=== PATIENT | female | born 1940 | race Caucasian/White ===

== ENCOUNTER 2019-05-03 07:52 | Inpatient (IN) | payer MEDICARE ==
--- NOTE | 2019-05-02 16:30 | Pre-op HX & Phy Repo 2 SIG ---
DATE OF ADMISSION: 05/03/2019 Scheduled for admission 05/03/2019. HISTORY OF PRESENT ILLNESS: The patient is a 79-year-old female in overall stable health with a malfunctioning Kock pouch continent ileostomy with increasing incontinence and increasing difficulty with intubation. The patient has a past history of ulcerative colitis in 1979. At the [facility], she underwent proctocolectomy with creation of a Kock pouch continent ileostomy. Over the years, she usually intubates three times a day to evacuate stool. In recent months, she has been aware of incontinence of stool or gas, sometimes gross incontinence. She has also had a few years of increasing episodes of difficulty with intubating associated with the incontinence over few years. In October 2018, she was completely unable to intubate. She underwent a pouch endoscopy with placement of the catheter, but there was no description in the report of any etiology of the inability to catheterize. She underwent a CT scan, which was unremarkable except for a foreign body in the pouch. The patient is scheduled to undergo pouch endoscopy and preparation for surgery including laparotomy and revision of her malfunctioning Kock pouch, likely due to a slipped valve. She does not want to have her pouch removed and have a conventional ileostomy as she has never had a conventional ileostomy. MEDICATIONS: Labetalol and valsartan for hypertension, Singulair for asthma, Pravachol, Hytrin, Celebrex for arthritis, Detrol, and aspirin 81 mg. ALLERGIES: She has no allergies to medications. She is allergic to some kind of adhesive tape. OPERATIONS: In 1979, proctocolectomy and Kock pouch and in 2016 oophorectomy for cyst of the ovary, which was benign. REVIEW OF SYSTEMS: The patient states she has a long history of iron deficiency anemia. PHYSICAL EXAMINATION: GENERAL: The patient is 5 feet 5 inches, 140 pounds. [place] and will be examined upon arrival and dictated separately. IMPRESSION: 1. Malfunctioning Kock pouch continent ileostomy. 2. History of ulcerative colitis. 3. Hypertension. 4. Asthma. 5. Arthritis. 6. STATUS POST MULTIPLE ABDOMINAL OPERATIONS: 6.1 Proctocolectomy and Kock pouch in 1979. 6.2 Oophorectomy for benign cyst in 2015. PLAN: I have had a full discussion with the patient regarding the nature of her condition, the nature of the evaluation including pouch endoscopy, which does not require any anesthesia or sedation. She further understands. She will be prepared for surgery including laparotomy and revision of her Kock pouch and possible decompressive gastrostomy. She will have a dual lumen PICC line placed for preoperative workup, bowel prep with continuous drainage of her Kock pouch and intravenous hydration during bowel prep, preoperative intravenous antibiotics and subcutaneous heparin. I will have another detailed discussion in person with the patient when she arrives [place] of state. Zachariah Farris M.D. DR: RINA JOB#: [id number] CC:
[~2019-05-03] VITALS: Ht 162.6 cm; Wt 57.2 kg
[2019-05-03 09:00] VITALS: BP 144/71
[2019-05-03] MEDS ORDERED: Lidocaine 1% Plain 30 ml INJ ONE (09:45)
[2019-05-03] MEDS ORDERED: Heparin1,000 units/500ml Premix(Conc:2 units/ml) IV ONE (09:45)
[2019-05-03] MEDS ORDERED: AVALIDE 300-121 EACH ORAL (10:28)
[2019-05-03] MEDS ORDERED: DETROL2 MG ORAL (10:28)
[2019-05-03] MEDS ORDERED: CELEBREX200 MG ORAL (10:28)
[2019-05-03] MEDS ORDERED: CLARITIN-D 241 EACH PO (10:28)
[2019-05-03] MEDS ORDERED: SPIRIVA18 MCG INH (10:28)
[2019-05-03] MEDS ORDERED: FLUTICASONE PRO16 G1 NASAL (10:28)
[2019-05-03] MEDS ORDERED: VENTOLIN HFA18 GM INH (10:28)
[2019-05-03] MEDS ORDERED: PANTOPRAZOLE SO40 MG ORAL (10:28)
[2019-05-03] MEDS ORDERED: PRAVASTATIN SOD20 M1 ORAL (10:28)
[2019-05-03] MEDS ORDERED: MONTELUKAST SOD10 MG ORAL (10:28)
[2019-05-03] MEDS ORDERED: IRON18 M1 PO (10:28)
[2019-05-03] MEDS ORDERED: AMLODIPINE BESYL5 MG ORAL (10:28)
[2019-05-03] MEDS ORDERED: SERTRALINE HCL25 MG ORAL (10:28)
[2019-05-03 10:46] LABS: BASOPHILS % (AUTO) 0.8 % (0.0-2.0); EOSINOPHILS % (AUTO) 1.9 % (0.0-3.0); HEMATOCRIT 38.9 % (37.0-47.0); HEMOGLOBIN 12.8 G/DL (12.0-16.0); LYMPHOCYTES % (AUTO) 7.3 % (20.0-45.0); MEAN CORPUSCULAR VOLUME 95 FL (80-99); MONOCYTES % (AUTO) 5.7 % (1.0-10.0); NEUTROPHILS % (AUTO) 84.2 % (45.0-75.0); PLATELET COUNT 205 K/UL (150-450); RED CELL DISTRIBUTION WIDTH 11.6 % (11.6-14.8); WHITE BLOOD COUNT 6.1 K/UL (4.8-10.8)
[2019-05-03 10:56] LABS: INR 1.1 (0.9-1.1)
--- NOTE | 2019-05-03 10:58 | Diagnostic Imaging Report ---
Indication: Cough Technique: One view of the chest Comparison: none Findings: There is thoracolumbar scoliotic deformity. There is suggestion of generalized hyperinflation and more focal hyperinflation of the right lateral lung base. The lungs and pleural spaces are clear. The heart size is normal Impression: No acute process COPD changes Scoliosis
[2019-05-03 11:04] LABS: ANION GAP 11 mmol/L (5-15); BLOOD UREA NITROGEN 23 mg/dL (7-18); CALCIUM 9.3 MG/DL (8.5-10.1); CARBON DIOXIDE 27 MMOL/L (21-32); CHLORIDE 103 MMOL/L (98-107); CREATININE 1.2 MG/DL (0.55-1.30); POTASSIUM 3.6 MMOL/L (3.5-5.1); SODIUM 141 MMOL/L (136-145)
[2019-05-03 11:09] LABS: % IRON SATURATION 32 % (15-50); IRON 96 ug/dL (50-175); TOTAL IRON BINDING CAPACITY 299 ug/dL (250-450)
[2019-05-03] MEDS ORDERED: FLUCONAZOLE100 MG ORAL (11:10)
[2019-05-03 11:21] LABS: ALANINE AMINOTRANSFERASE 31 U/L (12-78); ALBUMIN 4.1 G/DL (3.4-5.0); ALBUMIN/GLOBULIN RATIO 1.4 (1.0-2.7); ALKALINE PHOSPHATASE 57 U/L (46-116); ASPARTATE AMINO TRANSFERASE 27 U/L (15-37); FERRITIN 192 NG/ML (8-388)
[2019-05-03] MEDS: Neomycin Sulfate 500mg Tab ORAL SCH ×3 (11:44→20:16)
--- NOTE | 2019-05-03 11:51 | Pre-Procedure Note/Attestation ---
Pre-Procedure Note/Attestation Complete Prior to Procedure Planned Procedure: not applicable Procedure Narrative: Kock pouch endoscopy Indications for Procedure Pre-Operative Diagnosis: Malfunctioning Kock Pouch Attestation I attest that I discussed the nature of the procedure; its benefits; risks and complications; and alternatives (and the risks and benefits of such alternatives ), prior to the procedure, with the patient (or the patient's legal textiles sales representative). I attest that, if there was a reasonable possibility of needing a blood transfusion, the patient (or the patient's legal textiles sales representative) was given the [facility] standardized written summary, pursuant to the Garth Guido Blood Safety Act ([place] Health and Safety Code # 1645, as amended). I attest that I re-evaluated the patient just prior to the surgery and that there has been no change in the patient's H&P, except as documented below: none Zachariah Farris MD May 03, 2019 11:51
[2019-05-03 12:00] VITALS: BP 132/78
[2019-05-03 12:13] LABS: APPEARANCE,URINE SLIGHTLY CLOUDY; BILIRUBIN, URINE NEGATIVE (NEGATIVE); COLOR,URINE PALE YELLOW; GLUCOSE, URINE (UA) NEGATIVE (NEGATIVE); KETONES,URINE NEGATIVE (NEGATIVE); LEUKOCYTE ESTERASE ,URINE 3+ (NEGATIVE); NITRITE,URINE NEGATIVE (NEGATIVE); PH,URINE 5 (4.5-8.0); PROTEIN,URINE NEGATIVE (NEGATIVE); UROBILINOGEN,URINE NORMAL MG/DL (0.0-1.0)
--- NOTE | 2019-05-03 13:30 | Brief Operative Note ---
Immediate Post Operative Note Operative Note Pre-op Diagnosis: Malfunctioning Kock Pouch Procedure: Kock pouch endoscopy Post-op Diagnosis: partially slipped valve of Kock pouch Post-op Diagnosis: same as pre-op Findings: consistent w/pre-op dx studies Surgeon: mary Anesthesia: other - none Specimen: none Complications: none Fluids: none Estimated Blood Loss: none Drains: other - 26 Fr Blunt to Kock pouch Implant(s) used?: No Zachariah Farris MD May 03, 2019 13:30
[2019-05-03 14:00] VITALS: BP 148/93
--- NOTE | 2019-05-03 14:40 | Pre-Procedure Note/Attestation ---
Pre-Procedure Note/Attestation Complete Prior to Procedure Planned Procedure: not applicable Procedure Narrative: PICC Indications for Procedure Pre-Operative Diagnosis: needs group home central IV access Attestation I attest that I discussed the nature of the procedure; its benefits; risks and complications; and alternatives (and the risks and benefits of such alternatives ), prior to the procedure, with the patient (or the patient's legal outbound call center representative). I attest that, if there was a reasonable possibility of needing a blood transfusion, the patient (or the patient's legal outbound call center representative) was given the [facility] standardized written summary, pursuant to the Garth Guido Blood Safety Act ([place] Health and Safety Code # 1645, as amended). I attest that I re-evaluated the patient just prior to the surgery and that there has been no change in the patient's H&P, except as documented below: Bret Barajas MD May 03, 2019 14:40
--- NOTE | 2019-05-03 14:45 | Brief Operative Note ---
Immediate Post Operative Note Operative Note Pre-op Diagnosis: needs director long term care central IV access Procedure: PICC left arm Post-op Diagnosis: same as pre-op Surgeon: Claire Lozada Anesthesia: local Specimen: none Complications: none Fluids: none Implant(s) used?: No Bret Lozada MD May 03, 2019 14:45
--- NOTE | 2019-05-03 14:51 | Diagnostic Imaging Report ---
Indications: Needs long-term IV access Technique: Ultrasound confirms patent compressible left basilic vein. Total sterile technique, including sterile probe cover and sterile gel, hat, mask, sterile gown, large sterile drape, and preparation with 2% chlorhexidine utilized. Local anesthesia with 1% lidocaine. Under real-time ultrasound guidance, puncture basilic vein using 21-gauge needle, documented and archived, passage 0.018 guidewire under direct fluoroscopy, which was used to determine appropriate catheter length, exchange for 4 Kazakh peel-away sheath. 4 Kazakh Bard dual-lumen power PICC cut to 41 cm. It was inserted through the peel-away sheath. Peel-away sheath and guidewire removed. Catheter fixed to the skin. Both catheter ports aspirated and flushed. Patient tolerated procedure well, without immediate complication. Digital radiograph documents satisfactory catheter tip position, at the cavoatrial junction. Total fluoroscopy time 24.4 seconds. Total dose area product [id number] mGym2 Total number of images: 1 Impression: Successful placement of left arm PICC under sonographic and fluoroscopic guidance, as described above.
[2019-05-03] MEDS ORDERED: Albuterol 90mcg Inhaler 8gm INH PRN (16:00)
--- NOTE | 2019-05-03 16:14 | General Progress Note ---
Progress Note Progress Note H&P dictated. Kock pouch endoscopy reveals partially slipped valve. Dr. Mau Gonzales to see patient re abnormal EKG and management of HTN/pre- admission meds in post-op period Hgb 12.8 BUN up 23 Cr 1.2 Iron 96 Ferritin 192 Albumin 4.1 Full discussion with patient and son regarding her condition, nature of surgery , options and risks. Plan: dual lumen PIC Cardiology evaluation IV hydration, bowel prep, continuous drainage of Kock Pouch surgery in AM Zachariah Farris MD May 03, 2019 16:14
--- NOTE | 2019-05-03 16:48 | Cardiology Progress Note ---
Assessment/Plan Status Narrative 1. Ulcerative colitis 2. Malfunctioning Kock Pouch 3. HTN- controlled 4. Asthma 5. Abnormal EKG- normal LV function 6. DJD 7. Urinary Frequency Assessment/Plan Resume PO meds. Echo reviewed. May proceed with surgery. Will continue resp Tx post OP May need Clonidine SL post OP if unable to take PO meds. Hold Celebrex Discussed with Patient, her Son and with Dr. Farris. Subjective Cardiovascular: Reports: no symptoms; Denies: chest pain, edema, irregular heart rate, lightheadedness Respiratory: Reports: SOB with excertion, wheezing Gastrointestinal/Abdominal: Reports: abdomen distended Genitourinary: Reports: no symptoms Subjective Patient admitted for revision of Kock poch. Objective Last 24 Hour Vital Signs Date Time Temp Pulse Resp B/P (MAP) Pulse Ox O2 Delivery O2 Flow Rate FiO2 05/03/19 14:00 98.4 73 20 148/93 (111) 96 05/03/19 12:00 98.9 84 18 132/78 (96) 94 05/03/19 09:37 Room Air 05/03/19 09:00 98.8 85 20 144/71 (95) 96 Neck: non-tender, supple Rhythm: NSR Cardiovascular: normal rate, regular rhythm, no gallop/murmur Respiratory/Chest: chest wall non-tender, lungs clear, normal breath sounds, no respiratory distress Abdomen: other - Exp wheezes with forced expiration Extremities: non-tender, normal inspection, no calf tenderness, no swelling Laboratory Tests Test 05/03/19 10:35 05/03/19 11:30 White Blood Count 6.1 K/UL (4.8-10.8) Red Blood Count 4.10 M/UL (4.20-5.40) L Hemoglobin 12.8 G/DL (12.0-16.0) Hematocrit 38.9 % (37.0-47.0) Mean Corpuscular Volume 95 FL (80-99) Mean Corpuscular Hemoglobin 31.2 PG (27.0-31.0) H Mean Corpuscular Hemoglobin Concent 32.8 G/DL (32.0-36.0) Red Cell Distribution Width 11.6 % (11.6-14.8) Platelet Count 205 K/UL (150-450) Mean Platelet Volume 5.6 FL (6.5-10.1) L Neutrophils (%) (Auto) 84.2 % (45.0-75.0) H Lymphocytes (%) (Auto) 7.3 % (20.0-45.0) L Monocytes (%) (Auto) 5.7 % (1.0-10.0) Eosinophils (%) (Auto) 1.9 % (0.0-3.0) Basophils (%) (Auto) 0.8 % (0.0-2.0) Prothrombin Time 11.2 SEC (9.30-11.50) Prothromb Time International Ratio 1.1 (0.9-1.1) Activated Partial Thromboplast Time 25 SEC (23-33) Sodium Level 141 MMOL/L (136-145) Potassium Level 3.6 MMOL/L (3.5-5.1) Chloride Level 103 MMOL/L (98-107) Carbon Dioxide Level 27 MMOL/L (21-32) Anion Gap 11 mmol/L (5-15) Blood Urea Nitrogen 23 mg/dL (7-18) H Creatinine 1.2 MG/DL (0.55-1.30) Estimat Glomerular Filtration Rate mL/min (>60) Glucose Level 92 MG/DL (74-106) Calcium Level 9.3 MG/DL (8.5-10.1) Iron Level 96 ug/dL (50-175) Total Iron Binding Capacity 299 ug/dL (250-450) Percent Iron Saturation 32 % (15-50) Unsaturated Iron Binding 203 ug/dL (112-346) Ferritin 192 NG/ML (8-388) Total Bilirubin 1.0 MG/DL (0.2-1.0) Aspartate Amino Transf (AST/SGOT) 27 U/L (15-37) Alanine Aminotransferase (ALT/SGPT) 31 U/L (12-78) Alkaline Phosphatase 57 U/L (46-116) Total Protein 7.1 G/DL (6.4-8.2) Albumin 4.1 G/DL (3.4-5.0) Globulin 3.0 g/dL Albumin/Globulin Ratio 1.4 (1.0-2.7) Folate 86.3 NG/ML (8.6-58.9) H RBC Folate Hemolysate Pending Red Blood Cell Folate Pending Urine Color Pale yellow Urine Appearance Slightly cloudy Urine pH 5 (4.5-8.0) Urine Specific [place] 1.015 (1.005-1.035) Urine Protein Negative (NEGATIVE) Urine Glucose (UA) Negative (NEGATIVE) Urine Ketones Negative (NEGATIVE) Urine Blood 4+ (NEGATIVE) H Urine Nitrite Negative (NEGATIVE) Urine Bilirubin Negative (NEGATIVE) Urine Urobilinogen Normal MG/DL (0.0-1.0) Urine Leukocyte Esterase 3+ (NEGATIVE) H Urine RBC 5-10 /HPF (0 - 2) H Urine WBC 15-20 /HPF (0 - 2) H Urine Squamous Epithelial Cells Few /LPF (NONE/OCC) Urine Bacteria Moderate /HPF (NONE) H Mau Gonzales MD May 03, 2019 16:48
[2019-05-03 17:00] VITALS: BP 120/70
[2019-05-03] MEDS: Sertraline 100mg tab ORAL SCH (17:31)
[2019-05-03] MEDS: D5 1/2NS w/KCl 20mEq 1,000 ML IV SCH (17:52)
--- NOTE | 2019-05-03 18:23 | Cardiology Report ---
APPROVED REPORT EXAM: Two-dimensional and M-mode echocardiogram with Doppler and color Doppler. INDICATION PRE-OP M-Mode DIMENSIONS IVSd1.2 (0.7-1.1cm)Left Atrium (MM)2.8 (1.6-4.0cm) LVDd5.0 (3.5-5.6cm)Aortic Root3.0 (2.0-3.7cm) PWd1.1 (0.7-1.1cm)Aortic Cusp Exc.1.8 (1.5-2.0cm) IVSs1.7 cm LVDs3.3 (2.5-4.0cm) PWs1.3 cm Normal left ventricular chamber size, systolic function and wall motion. Left ventricular ejection fraction estimated to be 60-65 %. No evidence of left ventricular hypertrophy . No evidence of pericardial effusion. All other cardiac chamber sizes are within normal limits. Focal aortic valve sclerosis with adequate cusp excursion. Thickened mitral valve leaflets with normal excursion. Mitral annulus and aortic root calcification. Normal pulmonic valve structure. Normal tricuspid valve structure. IVC at normal size with physiologic collapse. A color flow and spectral Doppler study was performed and revealed: Trace aortic insufficiency. Trace mitral regurgitation. Mitral diastolic velocities suggest reduced left ventricular relaxation c/w mild LV diastolic dysfunction (Grade I ). Trace tricuspid regurgitation. Tricuspid systolic velocities suggests peak right ventricular systolic pressure of 13 mmHg. Trace pulmonic regurgitation.
--- NOTE | 2019-05-03 19:30 | Procedure Note ---
DATE OF PROCEDURE: 05/03/2019 ENDOSCOPY PROCEDURE REPORT ENDOSCOPIST: Zachariah Farris M.D. ANESTHESIA: None. SEDATION: None. PRE-ENDOSCOPY DIAGNOSES: 1. Malfunctioning Kock pouch continent ileostomy with difficulty with intubation and incontinence. 2. History of ulcerative colitis. 3. Status post proctocolectomy and Kock pouch in 1979. POST-ENDOSCOPY DIAGNOSES: 1. Malfunctioning Kock pouch continent ileostomy with difficulty with intubation and incontinence. 2. History of ulcerative colitis. 3. Status post proctocolectomy and Kock pouch in 1979. ENDOSCOPY PERFORMED: Kock pouch endoscopy. FINDINGS: A partially slipped nipple valve. DESCRIPTION OF PROCEDURE: The patient was positioned supine in the GI lab without any anesthesia or sedation given or required. The abdomen is soft and flat with a long midline incision and a nicely formed stoma of the Kock pouch low in the right lower quadrant. There is a mild parastomal hernia just in the superior aspect of the stoma. Using a GIF-P140 endoscope, the stoma was entered under direct vision, negotiating two angulations. The pouch was entered. The distance to the tip of the valve is approximately 11 cm, which in this patient should be 7 to 8 cm. The pouch is distensible and the mucosa appears normal. Retroflexed views revealed a partially well-formed nipple valve with tilting and partially desusscepted. Withdrawal views confirmed the above findings. After removing the endoscope, I could not insert a 28-Georgian Blunt into the pouch, but I did insert a 26-Georgian Blunt into the pouch and secured it with tape to the skin with a dressing over the stoma and connected to gravity drainage bag. The patient tolerated the endoscopy well and will be prepared for surgical revision of her Kock pouch tomorrow. Zachariah Farris M.D. DR: SOFIYA JOB#: [id number] CC: MICHAEL
[2019-05-03 20:00] VITALS: BP 137/81
[2019-05-03] MEDS: Dyna-Hex 2% Top Sol 2oz TOPIC SCH (20:16)
[2019-05-03] MEDS: Montelukast 10mg tablet ORAL SCH (20:16)
[2019-05-03] MEDS: Ampicillin/Sulbactam Sod 3 GM in NS 110 ML IVPB SCH (23:58)
[2019-05-04] VITALS (15 sets, daily range): BP systolic 98–132; BP diastolic 63–85
[2019-05-04] MEDS: Ampicillin/Sulbactam Sod 3 GM in NS 110 ML IVPB SCH (05:00)
[2019-05-04] MEDS: D5 1/2NS w/KCl 20mEq 1,000 ML IV SCH (05:01)
[2019-05-04] MEDS ORDERED: Heparin 5000 units/ml inj SUBQ SCH (05:30)
--- NOTE | 2019-05-04 06:46 | Pre-Procedure Note/Attestation ---
Pre-Procedure Note/Attestation Complete Prior to Procedure Planned Procedure: not applicable Procedure Narrative: Revision of Kock Pouch Indications for Procedure Pre-Operative Diagnosis: Malfunctioning Kock Pouch Attestation I attest that I discussed the nature of the procedure; its benefits; risks and complications; and alternatives (and the risks and benefits of such alternatives ), prior to the procedure, with the patient (or the patient's legal member services representative). I attest that, if there was a reasonable possibility of needing a blood transfusion, the patient (or the patient's legal member services representative) was given the [facility] Services standardized written summary, pursuant to the Garth Guido Blood Safety Act ([place] Health and Safety Code # 1645, as amended). I attest that I re-evaluated the patient just prior to the surgery and that there has been no change in the patient's H&P, except as documented below: none Zachariah Farris MD May 04, 2019 06:46
[2019-05-04 06:55] LABS: BASOPHILS % (AUTO) 0.8 % (0.0-2.0); EOSINOPHILS % (AUTO) 3.6 % (0.0-3.0); HEMATOCRIT 36.1 % (37.0-47.0); HEMOGLOBIN 12.3 G/DL (12.0-16.0); LYMPHOCYTES % (AUTO) 9.4 % (20.0-45.0); MEAN CORPUSCULAR VOLUME 95 FL (80-99); MONOCYTES % (AUTO) 7.4 % (1.0-10.0); NEUTROPHILS % (AUTO) 78.7 % (45.0-75.0); PLATELET COUNT 189 K/UL (150-450); RED BLOOD COUNT 3.82 M/UL (4.20-5.40); RED CELL DISTRIBUTION WIDTH 11.3 % (11.6-14.8); WHITE BLOOD COUNT 5.3 K/UL (4.8-10.8)
[2019-05-04 07:04] LABS: ALANINE AMINOTRANSFERASE 28 U/L (12-78); ALBUMIN 3.5 G/DL (3.4-5.0); ALBUMIN/GLOBULIN RATIO 1.2 (1.0-2.7); ALKALINE PHOSPHATASE 48 U/L (46-116); ANION GAP 11 mmol/L (5-15); ASPARTATE AMINO TRANSFERASE 28 U/L (15-37); BILIRUBIN,TOTAL 0.7 MG/DL (0.2-1.0); BLOOD UREA NITROGEN 13 mg/dL (7-18); CALCIUM 8.8 MG/DL (8.5-10.1); CARBON DIOXIDE 25 MMOL/L (21-32); CHLORIDE 105 MMOL/L (98-107); CREATININE 0.9 MG/DL (0.55-1.30); POTASSIUM 2.9 MMOL/L (3.5-5.1); SODIUM 141 MMOL/L (136-145)
[2019-05-04] MEDS ORDERED: fentaNYL 100 mcg/2 mL IV ONE (07:16)
[2019-05-04] MEDS ORDERED: Succinylcholine 20mg/ml 10ml vial ONE (07:21)
[2019-05-04] MEDS ORDERED: Bacitracin 50000 Units Vial ONE (07:21)
[2019-05-04] MEDS ORDERED: NeoSporin Gu Irrig 1ml Amp IRRIG ONE (07:21)
[2019-05-04] MEDS ORDERED: Rocuronium Bromide 50mg/5ml Inj IV ONE ×2 (07:21→09:36)
[2019-05-04] MEDS ORDERED: Sterile Water Irrig 1000ml IRRIG ONE (07:30)
[2019-05-04] MEDS ORDERED: NS Irrig 1000ml ONE (07:30)
[2019-05-04] MEDS ORDERED: D5NS 1000ml IV ONE (07:30)
[2019-05-04] MEDS ORDERED: NS Irrig 2000ml IRRIG ONE (07:30)
--- NOTE | 2019-05-04 08:21 | Anethesia Preoperative Eval ---
Anesthesia Pre-op PMH/ROS General Date of Evaluation: May 04, 2019 Time of Evaluation: 07:10 Anesthesiologist: Padmini ASA Score: ASA 3 Mallampati Score Class I : Soft palate, uvula, fauces, pillars visible Class II: Soft palate, uvula, fauces visible Class III: Soft palate, base of uvula visible Class IV: Only hard plate visible Mallampati Classification: Class II Surgeon: Kaleigh Diagnosis: Malfunctioning continent pouch Surgical Procedure: EX laparotomy, evision of continent pouch Anesthesia History: none Family History: no anesthesia problems Allergies: Coded Allergies: NO KNOWN ALLERGIES (Verified Allergy, Unknown, 05/03/19) NKA Patient NPO?: Yes NPO Date: May 03, 2019 NPO Time: 0000 Past Medical History Cardiovascular: Reports: HTN - stable on pills; Denies: CAD, [place], valve dz, arrhythmia, other Pulmonary: Reports: COPD - mild uses inhalers; Denies: asthma, LISANDRO, other Gastrointestinal/Genitourinary: Reports: GERD - mild, other - h/o UC s/p total colectomy; Denies: CRI, ESRD Neurologic/Psychiatric: Denies: dementia, CVA, depression/anxiety, TIA, other Endocrine: Denies: DM, hypothyroidism, steroids, other HEENT: Denies: cataract (L), cataract (R), glaucoma, [facility] (L), [facility] (R), other Hematology/Immune: Reports: anemia - mid Musculoskeletal/Integumentary: Reports: OA; Denies: RA, DJD, DDD, edema, other PMH Narrative: as above PSxH Narrative: see H&P Anesthesia Pre-op Phys. Exam Physician Exam Last Vital Signs Date Time Temp Pulse Resp B/P (MAP) Pulse Ox O2 Delivery O2 Flow Rate FiO2 05/04/19 04:00 98.1 80 18 132/85 (101) 100 05/03/19 21:00 Room Air Constitutional: NAD Neurologic: CN 2-12 intact Cardiovascular: RRR, no M/R/G Respiratory: other - some wheezing bilaterally Gastrointestinal: S/NT/ND Airway Exam Mallampati Score: Class II MO: limited Neck: stiff ROM: limited Teeth: missing Dentures: no upper, no lower Anesthesia Pre-op A/P Labs Hematology Test 05/03/19 10:35 05/04/19 05:00 White Blood Count 6.1 K/UL (4.8-10.8) 5.3 K/UL (4.8-10.8) Red Blood Count 4.10 M/UL (4.20-5.40) L 3.82 M/UL (4.20-5.40) L Hemoglobin 12.8 G/DL (12.0-16.0) 12.3 G/DL (12.0-16.0) Hematocrit 38.9 % (37.0-47.0) 36.1 % (37.0-47.0) L Mean Corpuscular Volume 95 FL (80-99) 95 FL (80-99) Mean Corpuscular Hemoglobin 31.2 PG (27.0-31.0) H 32.1 PG (27.0-31.0) H Mean Corpuscular Hemoglobin Concent 32.8 G/DL (32.0-36.0) 33.9 G/DL (32.0-36.0) Red Cell Distribution Width 11.6 % (11.6-14.8) 11.3 % (11.6-14.8) L Platelet Count 205 K/UL (150-450) 189 K/UL (150-450) Mean Platelet Volume 5.6 FL (6.5-10.1) L 6.0 FL (6.5-10.1) L Neutrophils (%) (Auto) 84.2 % (45.0-75.0) H 78.7 % (45.0-75.0) H Lymphocytes (%) (Auto) 7.3 % (20.0-45.0) L 9.4 % (20.0-45.0) L Monocytes (%) (Auto) 5.7 % (1.0-10.0) 7.4 % (1.0-10.0) Eosinophils (%) (Auto) 1.9 % (0.0-3.0) 3.6 % (0.0-3.0) H Basophils (%) (Auto) 0.8 % (0.0-2.0) 0.8 % (0.0-2.0) Coagulation Test 05/03/19 10:35 Prothrombin Time 11.2 SEC (9.30-11.50) Prothromb Time International Ratio 1.1 (0.9-1.1) Activated Partial Thromboplast Time 25 SEC (23-33) Chemistry Test 05/03/19 10:35 05/04/19 05:00 Sodium Level 141 MMOL/L (136-145) 141 MMOL/L (136-145) Potassium Level 3.6 MMOL/L (3.5-5.1) 2.9 MMOL/L (3.5-5.1) L Chloride Level 103 MMOL/L (98-107) 105 MMOL/L (98-107) Carbon Dioxide Level 27 MMOL/L (21-32) 25 MMOL/L (21-32) Anion Gap 11 mmol/L (5-15) 11 mmol/L (5-15) Blood Urea Nitrogen 23 mg/dL (7-18) H 13 mg/dL (7-18) Creatinine 1.2 MG/DL (0.55-1.30) 0.9 MG/DL (0.55-1.30) Estimat Glomerular Filtration Rate mL/min (>60) mL/min (>60) Glucose Level 92 MG/DL (74-106) 104 MG/DL (74-106) Calcium Level 9.3 MG/DL (8.5-10.1) 8.8 MG/DL (8.5-10.1) Iron Level 96 ug/dL (50-175) Total Iron Binding Capacity 299 ug/dL (250-450) Percent Iron Saturation 32 % (15-50) Unsaturated Iron Binding 203 ug/dL (112-346) Ferritin 192 NG/ML (8-388) Total Bilirubin 1.0 MG/DL (0.2-1.0) 0.7 MG/DL (0.2-1.0) Aspartate Amino Transf (AST/SGOT) 27 U/L (15-37) 28 U/L (15-37) Alanine Aminotransferase (ALT/SGPT) 31 U/L (12-78) 28 U/L (12-78) Alkaline Phosphatase 57 U/L (46-116) 48 U/L (46-116) Total Protein 7.1 G/DL (6.4-8.2) 6.4 G/DL (6.4-8.2) Albumin 4.1 G/DL (3.4-5.0) 3.5 G/DL (3.4-5.0) Globulin 3.0 g/dL 2.9 g/dL Albumin/Globulin Ratio 1.4 (1.0-2.7) 1.2 (1.0-2.7) Folate 86.3 NG/ML (8.6-58.9) H RBC Folate Hemolysate Pending Red Blood Cell Folate Pending Studies Pre-op Studies: EKG - NSR, echo - EF 55-60% Risk Assessment & Plan Assessment: ASA 3 Plan: GA with ETT Status Change Before Surgery: No Pre-Antibiotics Drug: as scheduled Juarez Bravo MD May 04, 2019 08:21
[2019-05-04] MEDS ORDERED: Propofol 200mg/20ml IV ONE (08:26)
[2019-05-04] MEDS ORDERED: Lidocaine 1% MPF 10mg/ml 5ml ONE (08:26)
[2019-05-04] MEDS ORDERED: Neostigmine 1mg/ml 10ml Inj ONE (08:27)
[2019-05-04] MEDS ORDERED: Morphine Sulfate 10mg/ml Inj ONE (08:27)
[2019-05-04] MEDS ORDERED: Glycopyrrolate 0.2mg/ml 1ml Vial ONE (08:27)
[2019-05-04] MEDS ORDERED: Sodium Chloride 10ml vial INJ ONE (08:27)
[2019-05-04] MEDS ORDERED: Acetaminophen (Non formulary) 100 ML IV ONE (08:30)
[2019-05-04] MEDS ORDERED: Losartan 50mg tab ORAL SCH (09:00)
[2019-05-04] MEDS ORDERED: HYDROCHLOROTHIAZIDE ORAL SCH (09:00)
[2019-05-04] MEDS: Sertraline 100mg tab ORAL SCH (09:00)
[2019-05-04] MEDS: Tolterodine 2mg tab ORAL SCH (09:00)
[2019-05-04] MEDS ORDERED: hydroCHLOROthiazide 12.5mg TAB ORAL SCH (09:00)
[2019-05-04] MEDS ORDERED: IRBESARTAN ORAL SCH (09:00)
[2019-05-04] MEDS ORDERED: LR 1000ml 1,000 ML IVLG SCH (09:25)
[2019-05-04] MEDS ORDERED: Hydromorphone 0.5mg/0.5ml inj IVP PRN (09:30)
[2019-05-04] MEDS ORDERED: DiphenhydrAMINE 50mg/ml Inj IVP PRN ×2 (09:30→12:30)
[2019-05-04] MEDS ORDERED: Ketorolac 30mg Inj IV PRN (09:30)
[2019-05-04] MEDS ORDERED: LORazepam 1mg tab SL PRN ×2 (11:45→21:00)
--- NOTE | 2019-05-04 11:48 | Brief Operative Note ---
Immediate Post Operative Note Operative Note Pre-op Diagnosis: Malfunctioning Kock Pouch Procedure: revision of Kock pouch Post-op Diagnosis: partially slipped valve of Kock pouch Post-op Diagnosis: same as pre-op Findings: consistent w/pre-op dx studies Surgeon: mary Director Career Services: channing Anesthesiologist: shan Anesthesia: general Specimen: yes - stoma, bowel trimmings Complications: none Condition: stable Fluids: see anesthesia record Estimated Blood Loss: volume - 100cc Drains: other - 28 Blunt to Kock Pouch Implant(s) used?: No Zachariah Farris MD May 04, 2019 11:48
--- NOTE | 2019-05-04 11:51 | Immediate Post-Op Evaluation ---
Immediate Post-Op Evalulation Immediate Post-Op Evalulation Procedure: Ex. laparotomy lysis of adhesions, revision of continent pouch Date of Evaluation: May 04, 2019 Time of Evaluation: 11:50 IV Fluids: 1600 Blood Products: none Estimated Blood Loss: 100 Urinary Output: 800 Blood Pressure Systolic: 116 Blood Pressure Diastolic: 64 Pulse Rate: 76 Respiratory Rate: 20 O2 Sat by Pulse Oximetry: 99 Temperature (Fahrenheit): 97.6 Pain Score (1-10): 1 Nausea: No Vomiting: No Complications none Patient Status: reacts, patent, extubated, none Hydration Status: adequate Juarez Bravo MD May 04, 2019 11:51
[2019-05-04] MEDS: Ampicillin/Sulbactam Sod 3 GM in NS 110 ML IV SCH ×2 (12:28→18:35)
[2019-05-04] MEDS ORDERED: D5 1/4NS w/KCl 20mEq 1,000 ML IV SCH (12:30)
[2019-05-04] MEDS ORDERED: Naloxone 0.4mg/ml Inj IVP PRN (12:30)
[2019-05-04] MEDS ORDERED: Rate Change PCA 1 Each MISC PRN (12:30)
[2019-05-04] MEDS ORDERED: PCA Morphine 1mg/ml 30 ML IV PRN (12:30)
[2019-05-04] MEDS ORDERED: Morphine Sulfate 2mg/ml Inj(IV/IM USE ONLY) IVP PRN (12:30)
[2019-05-04] MEDS ORDERED: PCA Education Pamphlet MISC ONE (16:00)
[2019-05-04] MEDS: D5 1/2NS w/KCl 40meq 1000ml 1,000 ML IV SCH (16:32)
--- NOTE | 2019-05-04 17:30 | Operative Note - Dictated ---
DATE OF OPERATION: 05/04/2019 SURGEON: Zachariah Farris M.D. BUSINESS APPLICATIONS DEVELOPER: James Glover M.D. ANESTHESIOLOGIST: Juarez Bravo M.D. TYPE OF ANESTHESIA: General endotracheal. PREOPERATIVE DIAGNOSES: 1. Malfunctioning Kock pouch continent ileostomy. 2. History of ulcerative colitis. 3. STATUS POST MULTIPLE ABDOMINAL OPERATIONS: 3.1. Proctocolectomy and Kock pouch in 1979. 3.2. Oophorectomy for benign cyst in 2016. POSTOPERATIVE DIAGNOSES: 1. Malfunctioning Kock pouch continent ileostomy. 2. History of ulcerative colitis. 3. STATUS POST MULTIPLE ABDOMINAL OPERATIONS: 3.1. Proctocolectomy and Kock pouch in 1979. 3.2. Oophorectomy for benign cyst in 2016. OPERATION PERFORMED: Complex revision of Kock pouch continent ileostomy with creation of new nipple valve and relocation of stoma to the left lower quadrant. DESCRIPTION OF PROCEDURE: The patient was taken to the operating room and under general anesthesia with sequential compression device stockings and Blunt catheter in place and having received preoperative intravenous antibiotics and subcutaneous heparin, the patient was prepped and draped in usual fashion with the stoma low in the right lower quadrant sealed with a Tegaderm. Previous midline incision was reopened from umbilicus to pubis. There were minimal adhesions to the anterior abdominal wall. The pouch was elevated out of the pelvis and adhesions taken down to completely mobilize it. The upper abdomen was normal to palpation. The small bowel appeared normal. The pelvis had no abnormal findings. I inserted a 28-[place] Blunt catheter into the stoma and with manual manipulation guided into the pouch. The afferent bowel was manually occluded and the pouch was distended with 600 mL of saline. Upon removing the catheter, there was incontinence. Catheter was reintroduced. Pouch decompressed. A pouch enterotomy was created along the anterior pouch wall previous suture line. The nipple valve was grasped with [place] clamps and initially I felt it could be reformed successfully. I placed a row of lee with the linear stapler 60 blue load and 90 degrees away from the mesentery. Then we made a small enterotomy just distal to the primary enterotomy and with the linear stapler 60 green load. I placed the lower blade through the enterotomy into the lumen of the valve and stapled the valve to the anterior pouch wall. The catheter was able to enter readily. The small enterotomy was closed with continuous 2-0 chromic full-thickness locking suture imbricated with 3-0 silk. The primary enterotomy was closed with continuous 2-0 Vicryl locking suture. Then, the pouch with the catheter in place was again distended with 600 mL of saline. There was no extravasation, but when the catheter was removed, there was obvious incontinence and the existing valve would not be satisfactory. The enterotomy was reopened. The access segment leading into the valve was divided near the pouch with a MURRAY stapling device and the stoma sent as specimen. The only area available for creating a new valve anastomosis was at the apex of the pouch, meaning the stoma would have to be relocated to the left lower quadrant. The right lower quadrant fascial incision was closed with continuous looped 0 PDS and an antibiotic-soaked lap placed in the subcutaneous tissues. Now, the afferent bowel was traced retrograde and till it was not dilated and was normal. The bowel divided with the MURRAY stapling device. Proximal end would be an enteroenterostomy to restore intestinal continuity. The distal end was open to become the new stoma and a pursestring suture placed and the anvil of the 25 CEA stapling device was placed into the end of the bowel. The stapler introduced to the pouch enterotomy and an end-to-side anastomosis was created with 2 intact donuts. Now 12 cm proximal was marked for the valve segment and a 2-0 chromic marking suture placed. The peritoneum was stripped on each side of the valve segment mesentery and the serosa scarified with cautery. With gradual intussusception, a 5.0 cm long valve was created. Two rows of lee were placed 90 degrees away from the mesentery using the linear stapler 60 blue load, then 3-0 silk sutures were placed between the access segment and pouch on each side of its mesentery of the access segment and then the linear stapler 60 was used to staple the valve to the anterior pouch wall. There was patency confirmed with the massey suction in the valve segment. There was not going to be another available space for a collar anastomosis. The pouch enterotomy was closed with continuous full-thickness locking 2-0 chromic imbricated by 3-0 silk. The catheter was placed through the new stoma opening into the pouch and the afferent bowel manually occluded. The pouch was distended with 600 mL of saline. There was no extravasation and when the catheter was removed, there was no incontinence. The catheter was reintroduced and the pouch decompressed. At an appropriate location low in the left lower quadrant, a 2.5 cm narrow ellipse of skin was excised in transverse orientation and a cruciate incision made in the fascia with a 2 fingerbreadth abdominal wall hiatus created. The access segment with its mesentery was brought through and the pouch lay snugly against the undersurface of the abdominal wall. Redundant access segment was excised and the stoma primarily matured with continuous 2-0 chromic locking sutures starting at the 3 and 9 o'clock positions. The 28-Guamanian Blunt catheter seen to deflect somewhat, but with some imbrication of the distal access segment, the catheter would go in and out without difficulty. The catheter was positioned in the apex of the pouch and sutured to the skin with two sutures of 2-0 silk. It was flushed and connected to a gravity drainage bag. The abdomen and pelvis was irrigated and inspected and hemostasis was secured. The bowel loops were placed anatomically. The midline incision was closed in one layer with continuous #1 looped PDS. Antibiotic-soaked laps had been used to protect the abdominal wall throughout the procedure. Additional antibiotic irrigation was used now. The right lower quadrant incision and the midline incision were closed with lee. Dry sterile dressings applied. Final sponge and needle counts were correct. The bladder and ureters were protected throughout the procedure. The patient tolerated the procedure well and left the operating room in stable condition. Zachariah Farris M.D. DR: OLIVER JOB#: [id number] CC: MICHAEL
--- NOTE | 2019-05-04 18:19 | Cardiology Progress Note ---
Assessment/Plan Status Narrative 1. Ulcerative colitis 2. Malfunctioning Kock Pouch- s/p revision 3. HTN- controlled 4. Asthma 5. Abnormal EKG- normal LV function 6. DJD 7. Urinary Frequency Assessment/Plan PO meds. IV Fluids Pain management Will continue resp Tx post OP DVT Px Hold BP meds for SBP<130 Discussed with Patient, and with RN Subjective Cardiovascular: Reports: no symptoms Respiratory: Reports: no symptoms Gastrointestinal/Abdominal: Reports: abdominal pain Genitourinary: Reports: no symptoms Subjective 05/03/10- Patient admitted for revision of Kock poch. 05/04/19- s/p revision of Kick pouch Objective Last 24 Hour Vital Signs Date Time Temp Pulse Resp B/P (MAP) Pulse Ox O2 Delivery O2 Flow Rate FiO2 05/04/19 16:30 98.5 75 18 102/64 (77) 98 05/04/19 16:00 18 05/04/19 15:30 97.3 72 18 103/65 (78) 95 05/04/19 14:30 98.4 75 20 102/65 (77) 97 05/04/19 13:30 15 05/04/19 13:30 98.4 76 20 99/65 (76) 96 05/04/19 13:30 Room Air 05/04/19 13:15 20 05/04/19 13:00 15 05/04/19 13:00 97.6 71 18 105/63 100 Nasal Cannula 3 71 05/04/19 12:45 97.8 75 20 108/66 100 Nasal Cannula 3 75 05/04/19 12:45 19 05/04/19 12:30 15 05/04/19 12:30 76 15 105/67 100 Nasal Cannula 3 76 05/04/19 12:15 72 20 112/69 100 Nasal Cannula 3 72 05/04/19 12:06 77 18 110/65 100 Simple Mask 6 77 05/04/19 11:55 73 17 109/63 100 Simple Mask 6 73 05/04/19 11:51 76 20 99 05/04/19 11:44 98.0 75 20 111/73 100 Simple Mask 6 75 05/04/19 04:00 98.1 80 18 132/85 (101) 100 05/04/19 00:00 99.0 90 18 98/67 (77) 98 05/03/19 21:00 Room Air 05/03/19 20:00 99.1 75 18 137/81 (99) 93 Cardiovascular: normal rate, regular rhythm, no gallop/murmur Respiratory/Chest: lungs clear Abdomen: soft, absent bowel sounds, distended, tender Extremities: non-tender, normal inspection, no calf tenderness, no swelling Intake and Output 05/03/19 05/04/19 19:00 07:00 Intake Total 915 ml 750 ml Output Total 900 ml 1175 ml Balance 15 ml -425 ml Intake Oral 840 ml IV Total 75 ml 750 ml Output Urine Total 900 ml 700 ml Other 475 ml # Voids 3 2 Laboratory Tests Test 05/04/19 05:00 White Blood Count 5.3 K/UL (4.8-10.8) Red Blood Count 3.82 M/UL (4.20-5.40) L Hemoglobin 12.3 G/DL (12.0-16.0) Hematocrit 36.1 % (37.0-47.0) L Mean Corpuscular Volume 95 FL (80-99) Mean Corpuscular Hemoglobin 32.1 PG (27.0-31.0) H Mean Corpuscular Hemoglobin Concent 33.9 G/DL (32.0-36.0) Red Cell Distribution Width 11.3 % (11.6-14.8) L Platelet Count 189 K/UL (150-450) Mean Platelet Volume 6.0 FL (6.5-10.1) L Neutrophils (%) (Auto) 78.7 % (45.0-75.0) H Lymphocytes (%) (Auto) 9.4 % (20.0-45.0) L Monocytes (%) (Auto) 7.4 % (1.0-10.0) Eosinophils (%) (Auto) 3.6 % (0.0-3.0) H Basophils (%) (Auto) 0.8 % (0.0-2.0) Sodium Level 141 MMOL/L (136-145) Potassium Level 2.9 MMOL/L (3.5-5.1) L Chloride Level 105 MMOL/L (98-107) Carbon Dioxide Level 25 MMOL/L (21-32) Anion Gap 11 mmol/L (5-15) Blood Urea Nitrogen 13 mg/dL (7-18) Creatinine 0.9 MG/DL (0.55-1.30) Estimat Glomerular Filtration Rate mL/min (>60) Glucose Level 104 MG/DL (74-106) Calcium Level 8.8 MG/DL (8.5-10.1) Total Bilirubin 0.7 MG/DL (0.2-1.0) Aspartate Amino Transf (AST/SGOT) 28 U/L (15-37) Alanine Aminotransferase (ALT/SGPT) 28 U/L (12-78) Alkaline Phosphatase 48 U/L (46-116) Total Protein 6.4 G/DL (6.4-8.2) Albumin 3.5 G/DL (3.4-5.0) Globulin 2.9 g/dL Albumin/Globulin Ratio 1.2 (1.0-2.7) Microbiology Date/Time Source Procedure Growth Status 05/03/19 11:30 Urine,Clean Catch Urine Culture - Preliminary Resulted Mau Gonzales MD May 04, 2019 18:19
[2019-05-04] MEDS: PCA shift volume MISC SCH (19:00)
[2019-05-04] MEDS: Montelukast 10mg tablet ORAL SCH (20:27)
[2019-05-04] MEDS: Dyna-Hex 2% Top Sol 2oz TOPIC SCH (20:27)
[2019-05-05] VITALS: BP 116/70
[2019-05-05] MEDS: Ampicillin/Sulbactam Sod 3 GM in NS 110 ML IV SCH ×4 (00:03→18:36)
[2019-05-05] MEDS: D5 1/2NS w/KCl 40meq 1000ml 1,000 ML IV SCH ×3 (00:08→20:57)
[2019-05-05 04:00] VITALS: BP 105/65
[2019-05-05 05:58] LABS: HEMOGLOBIN 12.5 G/DL (12.0-16.0); MEAN CORPUSCULAR VOLUME 96 FL (80-99); PLATELET COUNT 163 K/UL (150-450); RED BLOOD COUNT 3.95 M/UL (4.20-5.40); RED CELL DISTRIBUTION WIDTH 11.6 % (11.6-14.8); WHITE BLOOD COUNT 11.3 K/UL (4.8-10.8)
[2019-05-05 06:11] LABS: ANION GAP 6 mmol/L (5-15); BLOOD UREA NITROGEN 9 mg/dL (7-18); CALCIUM 7.8 MG/DL (8.5-10.1); CARBON DIOXIDE 26 MMOL/L (21-32); CHLORIDE 109 MMOL/L (98-107); CREATININE 0.8 MG/DL (0.55-1.30); SODIUM 141 MMOL/L (136-145)
[2019-05-05] MEDS: PCA shift volume MISC SCH ×2 (07:00→19:03)
[2019-05-05 08:00] VITALS: BP 140/87
[2019-05-05] MEDS ORDERED: Naloxone 0.4mg/ml Inj IVP PRN (08:27)
[2019-05-05] MEDS ORDERED: Rate Change PCA 1 Each MISC PRN (08:30)
[2019-05-05] MEDS ORDERED: Vitamin B12 1000mcg/ml Inj IM SCH (08:30)
[2019-05-05] MEDS ORDERED: Morphine Sulfate 2mg/ml Inj(IV/IM USE ONLY) IVP PRN (08:30)
[2019-05-05] MEDS ORDERED: DiphenhydrAMINE 50mg/ml Inj IVP PRN (08:31)
--- NOTE | 2019-05-05 08:41 | General Progress Note ---
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 Working with incentive spirometer ABdomen mildly distended. Moderate serosang drainage from stoma, incisions clean 12 hours overnight: urine 350 BCIR ileo 345 serosang WBC 11, 300 Hgb 12.5 (stable) BUN 9 Cr 0.8 IMp. Ileus Atelectasis with sinus congestion Plan: continue npo except po meds, aguayo catheter, SIGNALLING AND COMMUNICATIONS ENGINEER Claritin 10mg po daily Mobilize F/U labs Zachariah Farris MD May 05, 2019 08:41
[2019-05-05] MEDS: IRBESARTAN ORAL SCH (09:00)
[2019-05-05] MEDS: HCTZ ORAL SCH (09:00)
[2019-05-05] MEDS: Sertraline 100mg tab ORAL SCH (09:00)
[2019-05-05] MEDS: Tolterodine 2mg tab ORAL SCH (09:01)
--- NOTE | 2019-05-05 09:27 | 48 Hour Post Anesthesia Eval ---
Post Anesthesia Evaluation Procedure: Ex. laparotomy lysis of adhesions, revision of continent pouch Date of Evaluation: May 05, 2019 Airway: patent Nausea: No Vomiting: No Pain Intensity: 2 Hydration Status: adequate Cardiopulmonary Status: at baseline Mental Status/LOC: patient returned to baseline Post-Anesthesia Complications: 0 Follow-up care needed: N/A - further care as per primary team Amie Nieves MD May 05, 2019 09:27
[2019-05-05 10:05] LABS: ALANINE AMINOTRANSFERASE 26 U/L (12-78); ALBUMIN 2.8 G/DL (3.4-5.0); ALKALINE PHOSPHATASE 42 U/L (46-116); ASPARTATE AMINO TRANSFERASE 29 U/L (15-37); BILIRUBIN,DIRECT 0.1 MG/DL (0.0-0.3); BILIRUBIN,TOTAL 0.6 MG/DL (0.2-1.0)
--- NOTE | 2019-05-05 10:13 | Cardiology Progress Note ---
Assessment/Plan Status Narrative 1. Ulcerative colitis 2. Malfunctioning Kock Pouch- s/p revision 3. HTN- controlled 4. Asthma 5. Abnormal EKG- normal LV function 6. DJD 7. Urinary Frequency Assessment/Plan PO meds resumed IV Fluids Pain management Will continue resp Tx post OP DVT Px Hold BP meds for SBP<130 Out of bed I/S Discussed withDr. Farris, Patient, and with RN Subjective Cardiovascular: Reports: no symptoms Respiratory: Reports: no symptoms Gastrointestinal/Abdominal: Reports: abdominal pain Genitourinary: Reports: no symptoms Subjective 05/03/10- Patient admitted for revision of Kock poch. 05/04/19- s/p revision of Kick pouch 05/05- c/o abdominal pain with deep insp. Objective Last 24 Hour Vital Signs Date Time Temp Pulse Resp B/P (MAP) Pulse Ox O2 Delivery O2 Flow Rate FiO2 05/05/19 09:00 80 140/87 05/05/19 08:00 20 05/05/19 04:44 17 05/05/19 04:00 99.0 87 18 105/65 (78) 94 05/05/19 00:00 98.5 90 18 116/70 (85) 98 05/05/19 00:00 18 05/04/19 21:43 Room Air 05/04/19 20:00 98.4 87 18 117/71 (86) 98 05/04/19 20:00 18 05/04/19 16:30 98.5 75 18 102/64 (77) 98 05/04/19 16:00 18 05/04/19 15:30 97.3 72 18 103/65 (78) 95 05/04/19 14:30 98.4 75 20 102/65 (77) 97 05/04/19 14:00 97.1 76 20 101/64 (76) 97 05/04/19 13:30 15 05/04/19 13:30 98.4 76 20 99/65 (76) 96 05/04/19 13:30 Room Air 05/04/19 13:15 20 05/04/19 13:00 15 05/04/19 13:00 97.6 71 18 105/63 100 Nasal Cannula 3 71 05/04/19 12:45 97.8 75 20 108/66 100 Nasal Cannula 3 75 05/04/19 12:45 19 05/04/19 12:30 15 05/04/19 12:30 76 15 105/67 100 Nasal Cannula 3 76 05/04/19 12:15 72 20 112/69 100 Nasal Cannula 3 72 05/04/19 12:06 77 18 110/65 100 Simple Mask 6 77 05/04/19 11:55 73 17 109/63 100 Simple Mask 6 73 05/04/19 11:51 76 20 99 05/04/19 11:44 98.0 75 20 111/73 100 Simple Mask 6 75 Cardiovascular: normal rate, regular rhythm, no gallop/murmur Respiratory/Chest: lungs clear, decreased breath sounds Abdomen: absent bowel sounds, distended, tender Extremities: non-tender, normal inspection, no calf tenderness, no swelling Intake and Output 05/04/19 05/05/19 18:59 06:59 Intake Total 400 ml 510 ml Output Total 710 ml 695 ml Balance -310 ml -185 ml Intake Oral 0 ml IV Total 400 ml 510 ml Output Urine Total 500 ml 350 ml Other 210 ml 345 ml Laboratory Tests Test 05/05/19 05:30 White Blood Count 11.3 K/UL (4.8-10.8) #H Red Blood Count 3.95 M/UL (4.20-5.40) L Hemoglobin 12.5 G/DL (12.0-16.0) Hematocrit 38.0 % (37.0-47.0) Mean Corpuscular Volume 96 FL (80-99) Mean Corpuscular Hemoglobin 31.6 PG (27.0-31.0) H Mean Corpuscular Hemoglobin Concent 32.9 G/DL (32.0-36.0) Red Cell Distribution Width 11.6 % (11.6-14.8) Platelet Count 163 K/UL (150-450) Mean Platelet Volume 6.0 FL (6.5-10.1) L Neutrophils (%) (Auto) % (45.0-75.0) Lymphocytes (%) (Auto) % (20.0-45.0) Monocytes (%) (Auto) % (1.0-10.0) Eosinophils (%) (Auto) % (0.0-3.0) Basophils (%) (Auto) % (0.0-2.0) Sodium Level 141 MMOL/L (136-145) Potassium Level 4.0 MMOL/L (3.5-5.1) Chloride Level 109 MMOL/L (98-107) H Carbon Dioxide Level 26 MMOL/L (21-32) Anion Gap 6 mmol/L (5-15) Blood Urea Nitrogen 9 mg/dL (7-18) Creatinine 0.8 MG/DL (0.55-1.30) Estimat Glomerular Filtration Rate mL/min (>60) Glucose Level 136 MG/DL (74-106) H Calcium Level 7.8 MG/DL (8.5-10.1) L Total Bilirubin 0.6 MG/DL (0.2-1.0) Direct Bilirubin 0.1 MG/DL (0.0-0.3) Aspartate Amino Transf (AST/SGOT) 29 U/L (15-37) Alanine Aminotransferase (ALT/SGPT) 26 U/L (12-78) Alkaline Phosphatase 42 U/L (46-116) L Total Protein 5.9 G/DL (6.4-8.2) L Albumin 2.8 G/DL (3.4-5.0) L Vitamin B12 Level 411 PG/ML (193-986) Microbiology Date/Time Source Procedure Growth Status 05/03/19 11:30 Urine,Clean Catch Urine Culture - Preliminary Mixed Urogenital Contaminants Resulted Mau Gonzales MD May 05, 2019 10:13
[2019-05-05] MEDS: PCA Morphine 1mg/ml 30 ML IV PRN (10:29)
[2019-05-05 12:00] VITALS: BP 157/93
[2019-05-05] MEDS ORDERED: NS 275ml ONE (12:56)
[2019-05-05] MEDS ORDERED: NS Irrig 1000ml ONE (12:56)
[2019-05-05] MEDS ORDERED: Tubing IV Secondary IV ONE (12:56)
[2019-05-05 16:00] VITALS: BP 132/91
[2019-05-05 20:00] VITALS: BP 155/89
[2019-05-05] MEDS: Dyna-Hex 2% Top Sol 2oz TOPIC SCH (20:31)
[2019-05-05] MEDS: Montelukast 10mg tablet ORAL SCH (20:31)
[2019-05-06] VITALS: BP 123/76
[2019-05-06] MEDS: Ampicillin/Sulbactam Sod 3 GM in NS 110 ML IV SCH ×5 (00:17→23:55)
[2019-05-06 04:00] VITALS: BP 138/83
[2019-05-06 05:59] LABS: HEMATOCRIT 34.2 % (37.0-47.0); HEMOGLOBIN 11.4 G/DL (12.0-16.0); MEAN CORPUSCULAR VOLUME 96 FL (80-99); PLATELET COUNT 158 K/UL (150-450); RED BLOOD COUNT 3.58 M/UL (4.20-5.40); RED CELL DISTRIBUTION WIDTH 11.6 % (11.6-14.8); WHITE BLOOD COUNT 10.6 K/UL (4.8-10.8)
[2019-05-06] MEDS: PCA Morphine 1mg/ml 30 ML IV PRN (06:00)
[2019-05-06] MEDS: PCA shift volume MISC SCH ×2 (07:21→19:26)
[2019-05-06 08:00] VITALS: BP 140/91
[2019-05-06] MEDS: D5 1/2NS w/KCl 40meq 1000ml 1,000 ML IV SCH ×2 (08:41→17:55)
[2019-05-06] MEDS: Tolterodine 2mg tab ORAL SCH (09:42)
[2019-05-06] MEDS: Sertraline 100mg tab ORAL SCH (09:43)
[2019-05-06] MEDS: HCTZ ORAL SCH (09:43)
[2019-05-06] MEDS: IRBESARTAN ORAL SCH (09:43)
[2019-05-06 12:00] VITALS: BP 155/97
[2019-05-06] MEDS ORDERED: PCA Morphine 1mg/ml 30 ML IV PRN (12:20)
[2019-05-06] MEDS ORDERED: Morphine Sulfate 2mg/ml Inj(IV/IM USE ONLY) IVP PRN (12:20)
[2019-05-06] MEDS ORDERED: DiphenhydrAMINE 50mg/ml Inj IVP PRN (12:20)
[2019-05-06] MEDS ORDERED: Naloxone 0.4mg/ml Inj IVP PRN (12:20)
[2019-05-06] MEDS ORDERED: Rate Change PCA 1 Each MISC PRN (12:21)
--- NOTE | 2019-05-06 12:30 | General Progress Note ---
Progress Note Progress Note AVSS c/o pain especially LUQ - no difficulty breathing at this time. 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
--- NOTE | 2019-05-06 13:16 | Cardiology Report ---
APPROVED REPORT EKG Measurement Heart [id number] [place] [id number] Sinus rhythm with occasional premature ventricular complexes Cannot rule out Anterior infarct, age undetermined Abnormal ECG
[2019-05-06 13:40] LABS: ANION GAP 6 mmol/L (5-15); BLOOD UREA NITROGEN 3 mg/dL (7-18); CALCIUM 8.2 MG/DL (8.5-10.1); CARBON DIOXIDE 28 MMOL/L (21-32); CHLORIDE 104 MMOL/L (98-107); CREATININE 0.7 MG/DL (0.55-1.30); POTASSIUM 3.8 MMOL/L (3.5-5.1); SODIUM 138 MMOL/L (136-145)
--- NOTE | 2019-05-06 14:01 | Cardiology Progress Note ---
Assessment/Plan Status Narrative 1. Ulcerative colitis 2. Malfunctioning Kock Pouch- s/p revision 3. HTN- controlled 4. Asthma 5. Abnormal EKG- normal LV function 6. DJD 7. Urinary Frequency Assessment/Plan PO meds resumed IV Fluids Pain management Will continue resp Tx post OP DVT Px Hold BP meds for SBP<130 Out of bed I/S Add Clonidine 0.1 mg PRN for SBP>160 Discussed with Patient, and with RN Subjective Cardiovascular: Reports: no symptoms Respiratory: Reports: no symptoms Gastrointestinal/Abdominal: Reports: abdomen distended, abdominal pain Genitourinary: Reports: no symptoms Subjective 05/03/10- Patient admitted for revision of Kock poch. 05/04/19- s/p revision of Kick pouch 05/05- c/o abdominal pain with deep insp. 05/06 had increased abdominal pain, MS increased . Objective Last 24 Hour Vital Signs Date Time Temp Pulse Resp B/P (MAP) Pulse Ox O2 Delivery O2 Flow Rate FiO2 05/06/19 13:50 16 05/06/19 13:20 16 05/06/19 12:00 99.8 97 16 155/97 (116) 97 05/06/19 09:43 92 140/91 05/06/19 09:00 Room Air 05/06/19 08:00 99.1 92 16 140/91 (107) 97 05/06/19 08:00 16 05/06/19 06:00 16 05/06/19 04:00 98.3 83 16 138/83 (101) 95 05/06/19 03:39 16 05/06/19 00:00 97.4 90 16 123/76 (92) 93 05/06/19 00:00 16 05/05/19 21:00 Room Air 05/05/19 20:00 20 05/05/19 20:00 99.5 97 20 155/89 (111) 93 05/05/19 16:00 98.6 93 20 132/91 (105) 94 05/05/19 16:00 20 Cardiovascular: normal rate, regular rhythm, no gallop/murmur Respiratory/Chest: lungs clear Abdomen: soft, absent bowel sounds, distended, tender Extremities: non-tender, normal inspection, no calf tenderness Intake and Output 05/05/19 05/06/19 18:59 06:59 Intake Total 1410 ml Output Total 970 ml 920 ml Balance 440 ml -920 ml IV Total 1410 ml Output Urine Total 700 ml 900 ml Other 270 ml 20 ml Laboratory Tests Test 05/06/19 05:15 05/06/19 13:00 White Blood Count 10.6 K/UL (4.8-10.8) Red Blood Count 3.58 M/UL (4.20-5.40) L Hemoglobin 11.4 G/DL (12.0-16.0) L Hematocrit 34.2 % (37.0-47.0) L Mean Corpuscular Volume 96 FL (80-99) Mean Corpuscular Hemoglobin 31.8 PG (27.0-31.0) H Mean Corpuscular Hemoglobin Concent 33.3 G/DL (32.0-36.0) Red Cell Distribution Width 11.6 % (11.6-14.8) Platelet Count 158 K/UL (150-450) Mean Platelet Volume 6.4 FL (6.5-10.1) L Neutrophils (%) (Auto) % (45.0-75.0) Lymphocytes (%) (Auto) % (20.0-45.0) Monocytes (%) (Auto) % (1.0-10.0) Eosinophils (%) (Auto) % (0.0-3.0) Basophils (%) (Auto) % (0.0-2.0) Differential Total Cells Counted 100 Neutrophils % (Manual) 91 % (45-75) H Lymphocytes % (Manual) 1 % (20-45) L Monocytes % (Manual) 7 % (1-10) Eosinophils % (Manual) 0 % (0-3) Basophils % (Manual) 1 % (0-2) Band Neutrophils 0 % (0-8) Platelet Estimate Adequate Platelet Morphology Normal Red Blood Cell Morphology Normal Sodium Level 138 MMOL/L (136-145) Potassium Level 3.8 MMOL/L (3.5-5.1) Chloride Level 104 MMOL/L (98-107) Carbon Dioxide Level 28 MMOL/L (21-32) Anion Gap 6 mmol/L (5-15) Blood Urea Nitrogen 3 mg/dL (7-18) L Creatinine 0.7 MG/DL (0.55-1.30) Estimat Glomerular Filtration Rate mL/min (>60) Glucose Level 117 MG/DL (74-106) H Calcium Level 8.2 MG/DL (8.5-10.1) L Mau Gonzales MD May 06, 2019 14:01
[2019-05-06 16:00] VITALS: BP 145/95
[2019-05-06] MEDS ORDERED: NS Irrig 1000ml ONE (16:36)
[2019-05-06 20:00] VITALS: BP 124/83
[2019-05-06] MEDS: Montelukast 10mg tablet ORAL SCH (20:22)
[2019-05-06] MEDS: Dyna-Hex 2% Top Sol 2oz TOPIC SCH (20:22)
[2019-05-07] VITALS: BP 121/78
[2019-05-07 04:00] VITALS: BP 127/78
[2019-05-07] MEDS: D5 1/2NS w/KCl 40meq 1000ml 1,000 ML IV SCH ×2 (05:00→14:56)
[2019-05-07] MEDS: Ampicillin/Sulbactam Sod 3 GM in NS 110 ML IV SCH ×4 (05:55→23:32)
[2019-05-07 06:03] LABS: HEMATOCRIT 32.3 % (37.0-47.0); HEMOGLOBIN 10.8 G/DL (12.0-16.0); MEAN CORPUSCULAR VOLUME 96 FL (80-99); PLATELET COUNT 151 K/UL (150-450); RED BLOOD COUNT 3.38 M/UL (4.20-5.40); RED CELL DISTRIBUTION WIDTH 11.4 % (11.6-14.8); WHITE BLOOD COUNT 11.1 K/UL (4.8-10.8)
[2019-05-07 06:26] LABS: ANION GAP 6 mmol/L (5-15); BLOOD UREA NITROGEN 5 mg/dL (7-18); CALCIUM 7.6 MG/DL (8.5-10.1); CARBON DIOXIDE 26 MMOL/L (21-32); CHLORIDE 105 MMOL/L (98-107); CREATININE 0.6 MG/DL (0.55-1.30); POTASSIUM 3.8 MMOL/L (3.5-5.1); SODIUM 137 MMOL/L (136-145)
[2019-05-07] MEDS: PCA shift volume MISC SCH ×2 (07:17→19:17)
[2019-05-07 08:00] VITALS: BP 128/83
[2019-05-07] MEDS ORDERED: DiphenhydrAMINE 50mg/ml Inj IVP PRN (08:00)
[2019-05-07] MEDS ORDERED: Naloxone 0.4mg/ml Inj IVP PRN (08:02)
[2019-05-07] MEDS ORDERED: Rate Change PCA 1 Each MISC PRN (08:15)
[2019-05-07] MEDS ORDERED: Morphine Sulfate 2mg/ml Inj(IV/IM USE ONLY) IVP PRN (08:20)
--- NOTE | 2019-05-07 08:24 | General Progress Note ---
Progress Note Progress Note AVSS Much more comfortable overnight and LUQ pain resolved. Ambulated Abdomen soft, mildly distended, incisions clean. Stoma pink medial and dusky lateral Urine 1560 Kock pouch ileo 90 bilious now WBC 11,100 Hgb down 10.8 Iron 96 B12 411 Imp. Ileus Anemia with low iron and B12 Plan; continue npo, aguayo, continuous drainage of Kock Pouch Venofer B12 Zachariah Farris MD May 07, 2019 08:24
[2019-05-07] MEDS ORDERED: Vitamin B12 1000mcg/ml Inj IM SCH (08:30)
[2019-05-07] MEDS ORDERED: PCA Morphine 1mg/ml 30 ML IV PRN ×3 (08:30→15:30)
[2019-05-07] MEDS: IRBESARTAN ORAL SCH (08:45)
[2019-05-07] MEDS: HCTZ ORAL SCH (08:45)
[2019-05-07] MEDS: Sertraline 100mg tab ORAL SCH (09:33)
[2019-05-07] MEDS: Tolterodine 2mg tab ORAL SCH (09:33)
[2019-05-07 11:46] VITALS: BP 149/83
[2019-05-07 16:00] VITALS: BP 136/87
--- NOTE | 2019-05-07 18:41 | Cardiology Progress Note ---
Assessment/Plan Status Narrative 1. Ulcerative colitis 2. Malfunctioning Kock Pouch- s/p revision 3. HTN- controlled 4. Asthma 5. Abnormal EKG- normal LV function 6. DJD 7. Urinary Frequency Assessment/Plan PO meds resumed IV Fluids Pain management Will continue resp Tx post OP DVT Px Hold BP meds for SBP<130 Out of bed I/S Clonidine 0.1 mg PRN for SBP>160 Discussed with Patient, and with RN Subjective Cardiovascular: Reports: no symptoms Respiratory: Reports: no symptoms Gastrointestinal/Abdominal: Reports: abdominal pain, nausea Genitourinary: Reports: no symptoms Subjective 05/03/10- Patient admitted for revision of Kock poch. 05/04/19- s/p revision of Kick pouch 05/05- c/o abdominal pain with deep insp. 05/06 had increased abdominal pain, MS increased . 05/07- had a good day, ambulated Objective Last 24 Hour Vital Signs Date Time Temp Pulse Resp B/P (MAP) Pulse Ox O2 Delivery O2 Flow Rate FiO2 05/07/19 16:00 99.0 93 18 136/87 (103) 95 05/07/19 16:00 18 05/07/19 12:00 15 05/07/19 11:46 99.1 96 18 149/83 (105) 94 05/07/19 09:00 Nasal Cannula 2.0 05/07/19 09:00 91 128/83 05/07/19 08:00 15 05/07/19 08:00 98.7 91 18 128/83 (98) 93 05/07/19 04:00 18 05/07/19 04:00 97.2 90 18 127/78 (94) 98 90 05/07/19 00:00 20 05/07/19 00:00 99.2 95 20 121/78 (92) 98 95 05/06/19 21:00 Nasal Cannula 2.0 05/06/19 20:00 16 05/06/19 20:00 98 16 124/83 (97) 93 101 General Appearance: no apparent distress Cardiovascular: normal rate, regular rhythm, no gallop/murmur Respiratory/Chest: lungs clear Abdomen: soft, absent bowel sounds, distended, tender Extremities: non-tender, normal inspection, no calf tenderness, no swelling Intake and Output 9/14/19 9/15/19 18:59 06:59 Intake Total 1620 ml 900 ml Output Total 1120 ml 530 ml Balance 500 ml 370 ml IV Total 1620 ml 900 ml Output Urine Total 1100 ml 460 ml Other 20 ml 70 ml Laboratory Tests Test 05/07/19 05:00 White Blood Count 11.1 K/UL (4.8-10.8) H Red Blood Count 3.38 M/UL (4.20-5.40) L Hemoglobin 10.8 G/DL (12.0-16.0) L Hematocrit 32.3 % (37.0-47.0) L Mean Corpuscular Volume 96 FL (80-99) Mean Corpuscular Hemoglobin 31.9 PG (27.0-31.0) H Mean Corpuscular Hemoglobin Concent 33.3 G/DL (32.0-36.0) Red Cell Distribution Width 11.4 % (11.6-14.8) L Platelet Count 151 K/UL (150-450) Mean Platelet Volume 7.0 FL (6.5-10.1) Neutrophils (%) (Auto) % (45.0-75.0) Lymphocytes (%) (Auto) % (20.0-45.0) Monocytes (%) (Auto) % (1.0-10.0) Eosinophils (%) (Auto) % (0.0-3.0) Basophils (%) (Auto) % (0.0-2.0) Differential Total Cells Counted 100 Neutrophils % (Manual) 88 % (45-75) H Lymphocytes % (Manual) 6 % (20-45) L Monocytes % (Manual) 5 % (1-10) Eosinophils % (Manual) 1 % (0-3) Basophils % (Manual) 0 % (0-2) Band Neutrophils 0 % (0-8) Platelet Estimate Adequate Platelet Morphology Normal Red Blood Cell Morphology Normal Sodium Level 137 MMOL/L (136-145) Potassium Level 3.8 MMOL/L (3.5-5.1) Chloride Level 105 MMOL/L (98-107) Carbon Dioxide Level 26 MMOL/L (21-32) Anion Gap 6 mmol/L (5-15) Blood Urea Nitrogen 5 mg/dL (7-18) L Creatinine 0.6 MG/DL (0.55-1.30) Estimat Glomerular Filtration Rate mL/min (>60) Glucose Level 130 MG/DL (74-106) H Calcium Level 7.6 MG/DL (8.5-10.1) L Mau Gonzales MD May 07, 2019 18:41
[2019-05-07 20:00] VITALS: BP 144/90
[2019-05-07] MEDS: Dyna-Hex 2% Top Sol 2oz TOPIC SCH (20:23)
[2019-05-07] MEDS: Montelukast 10mg tablet ORAL SCH (20:52)
[2019-05-07] MEDS: Iron Sucrose 100 MG in NS 55 ML IV SCH (20:52)
[2019-05-08] VITALS: BP 143/92
[2019-05-08 04:00] VITALS: BP 140/93
[2019-05-08] MEDS: Ampicillin/Sulbactam Sod 3 GM in NS 110 ML IV SCH ×4 (05:44→23:45)
[2019-05-08 05:47] LABS: BASOPHILS % (AUTO) 1.1 % (0.0-2.0); HEMATOCRIT 31.8 % (37.0-47.0); HEMOGLOBIN 10.7 G/DL (12.0-16.0); LYMPHOCYTES % (AUTO) 5.3 % (20.0-45.0); MEAN CORPUSCULAR VOLUME 95 FL (80-99); MONOCYTES % (AUTO) 6.8 % (1.0-10.0); NEUTROPHILS % (AUTO) 83.7 % (45.0-75.0); PLATELET COUNT 149 K/UL (150-450); RED BLOOD COUNT 3.35 M/UL (4.20-5.40); RED CELL DISTRIBUTION WIDTH 10.7 % (11.6-14.8)
[2019-05-08 06:21] LABS: ALANINE AMINOTRANSFERASE 18 U/L (12-78); ALBUMIN 2.2 G/DL (3.4-5.0); ALBUMIN/GLOBULIN RATIO 0.7 (1.0-2.7); ALKALINE PHOSPHATASE 41 U/L (46-116); ANION GAP 5 mmol/L (5-15); ASPARTATE AMINO TRANSFERASE 22 U/L (15-37); BILIRUBIN,TOTAL 0.7 MG/DL (0.2-1.0); BLOOD UREA NITROGEN 4 mg/dL (7-18); CALCIUM 7.9 MG/DL (8.5-10.1); CARBON DIOXIDE 28 MMOL/L (21-32); CHLORIDE 106 MMOL/L (98-107); CREATININE 0.6 MG/DL (0.55-1.30); POTASSIUM 3.4 MMOL/L (3.5-5.1); SODIUM 139 MMOL/L (136-145)
[2019-05-08] MEDS: PCA shift volume MISC SCH ×2 (07:00→19:00)
[2019-05-08 08:00] VITALS: BP 145/86
[2019-05-08] MEDS ORDERED: PCA Morphine 1mg/ml 30 ML IV PRN ×2 (08:30→08:51)
[2019-05-08] MEDS ORDERED: DiphenhydrAMINE 50mg/ml Inj IVP PRN (08:51)
[2019-05-08] MEDS ORDERED: Naloxone 0.4mg/ml Inj IVP PRN (08:52)
[2019-05-08] MEDS ORDERED: Morphine Sulfate 2mg/ml Inj(IV/IM USE ONLY) IVP PRN (08:52)
[2019-05-08] MEDS ORDERED: Rate Change PCA 1 Each MISC PRN (09:00)
--- NOTE | 2019-05-08 09:03 | General Progress Note ---
Progress Note Progress Note AVSS At times confused and disoriented. Basal infusion of EDUCATIONAL COORDINATOR was stopped - ? due to Ativan for sleep Abdomen is mildly distended, soft, incisions clean Urine 4500 Kock pouch ileo 45cc WBC 8800 Hgb 10.7 stable - on Venofer Platelets 149,000 K 3.4 Imp. Ileus diuresing confusion Plan: continue NPO, aguayo, continuous drainage of Kock Pouch d/c ativan - uses Xanax at home for anxiety attacks and prn insomnia continue ambulation with assistance Zachariah Farris MD May 08, 2019 09:03
[2019-05-08] MEDS: Tolterodine 2mg tab ORAL SCH (09:25)
[2019-05-08] MEDS: Sertraline 100mg tab ORAL SCH (09:26)
[2019-05-08] MEDS: HCTZ ORAL SCH (09:27)
[2019-05-08] MEDS: IRBESARTAN ORAL SCH (09:27)
[2019-05-08] MEDS ORDERED: NS Irrig 1000ml ONE (09:30)
[2019-05-08] MEDS ORDERED: Tubing IV Secondary IV ONE (09:30)
[2019-05-08 12:00] VITALS: BP 147/96
--- NOTE | 2019-05-08 12:28 | Cardiology Progress Note ---
Assessment/Plan Status Narrative 1. Ulcerative colitis 2. Malfunctioning Kock Pouch- s/p revision 3. HTN- controlled 4. Asthma 5. Abnormal EKG- normal LV function 6. DJD 7. Urinary Frequency 8. insomnia Assessment/Plan IV Fluids Pain management DVT Px Out of bed- ambulate I/S Clonidine 0.1 mg PRN for SBP>160 Discussed with Patient, and with RN Subjective Cardiovascular: Reports: no symptoms Respiratory: Reports: no symptoms Gastrointestinal/Abdominal: Reports: abdominal pain Genitourinary: Reports: no symptoms Subjective 05/03/10- Patient admitted for revision of Kock poch. 05/04/19- s/p revision of Kick pouch 05/05- c/o abdominal pain with deep insp. 05/06 had increased abdominal pain, MS increased . 05/07- had a good day, ambulated 05/08- Had a bad nite due to hallucinations Objective Last 24 Hour Vital Signs Date Time Temp Pulse Resp B/P (MAP) Pulse Ox O2 Delivery O2 Flow Rate FiO2 05/08/19 09:26 91 145/86 05/08/19 04:01 18 05/08/19 04:00 98.1 89 16 140/93 (109) 95 05/08/19 00:00 98.0 94 18 143/92 (109) 94 05/08/19 00:00 18 05/07/19 21:00 Nasal Cannula 2.0 05/07/19 20:00 99.4 92 16 144/90 (108) 94 05/07/19 19:57 18 05/07/19 16:00 99.0 93 18 136/87 (103) 95 05/07/19 16:00 18 Cardiovascular: normal rate, regular rhythm, no gallop/murmur Respiratory/Chest: lungs clear Abdomen: soft, decreased bowel sounds, distended, tender Extremities: non-tender, no calf tenderness, no swelling Intake and Output 05/07/19 05/08/19 19:00 07:00 Intake Total 1520 ml 1200 ml Output Total 1820 ml 2725 ml Balance -300 ml -1525 ml IV Total 1520 ml 1200 ml Output Urine Total 1800 ml 2700 ml Other 20 ml 25 ml Laboratory Tests Test 05/08/19 05:15 White Blood Count 8.0 K/UL (4.8-10.8) Red Blood Count 3.35 M/UL (4.20-5.40) L Hemoglobin 10.7 G/DL (12.0-16.0) L Hematocrit 31.8 % (37.0-47.0) L Mean Corpuscular Volume 95 FL (80-99) Mean Corpuscular Hemoglobin 32.0 PG (27.0-31.0) H Mean Corpuscular Hemoglobin Concent 33.7 G/DL (32.0-36.0) Red Cell Distribution Width 10.7 % (11.6-14.8) L Platelet Count 149 K/UL (150-450) L Mean Platelet Volume 6.2 FL (6.5-10.1) L Neutrophils (%) (Auto) 83.7 % (45.0-75.0) H Lymphocytes (%) (Auto) 5.3 % (20.0-45.0) L Monocytes (%) (Auto) 6.8 % (1.0-10.0) Eosinophils (%) (Auto) 3.0 % (0.0-3.0) Basophils (%) (Auto) 1.1 % (0.0-2.0) Sodium Level 139 MMOL/L (136-145) Potassium Level 3.4 MMOL/L (3.5-5.1) L Chloride Level 106 MMOL/L (98-107) Carbon Dioxide Level 28 MMOL/L (21-32) Anion Gap 5 mmol/L (5-15) Blood Urea Nitrogen 4 mg/dL (7-18) L Creatinine 0.6 MG/DL (0.55-1.30) Estimat Glomerular Filtration Rate mL/min (>60) Glucose Level 107 MG/DL (74-106) H Calcium Level 7.9 MG/DL (8.5-10.1) L Total Bilirubin 0.7 MG/DL (0.2-1.0) Aspartate Amino Transf (AST/SGOT) 22 U/L (15-37) Alanine Aminotransferase (ALT/SGPT) 18 U/L (12-78) Alkaline Phosphatase 41 U/L (46-116) L Total Protein 5.4 G/DL (6.4-8.2) L Albumin 2.2 G/DL (3.4-5.0) L Globulin 3.2 g/dL Albumin/Globulin Ratio 0.7 (1.0-2.7) L Ravan,Mau F. MD May 08, 2019 12:28
[2019-05-08] MEDS: D5 1/2NS w/KCl 40meq 1000ml 1,000 ML IV SCH ×3 (13:36→20:00)
[2019-05-08] MEDS: ALPRAZolam 0.5mg tab ORAL PRN ×2 (14:16→21:00)
[2019-05-08 16:00] VITALS: BP 146/95
[2019-05-08] MEDS: Dyna-Hex 2% Top Sol 2oz TOPIC SCH (19:58)
[2019-05-08 20:00] VITALS: BP 152/92
[2019-05-08] MEDS: Montelukast 10mg tablet ORAL SCH (20:53)
[2019-05-08] MEDS: Iron Sucrose 100 MG in NS 55 ML IV SCH (20:53)
[2019-05-09] VITALS: BP 146/87
[2019-05-09 04:00] VITALS: BP 153/89
[2019-05-09 05:38] LABS: BASOPHILS % (AUTO) 0.7 % (0.0-2.0); HEMATOCRIT 32.4 % (37.0-47.0); HEMOGLOBIN 11.1 G/DL (12.0-16.0); LYMPHOCYTES % (AUTO) 4.6 % (20.0-45.0); MEAN CORPUSCULAR VOLUME 95 FL (80-99); MONOCYTES % (AUTO) 7.8 % (1.0-10.0); PLATELET COUNT 184 K/UL (150-450); RED BLOOD COUNT 3.42 M/UL (4.20-5.40); RED CELL DISTRIBUTION WIDTH 10.6 % (11.6-14.8); WHITE BLOOD COUNT 7.7 K/UL (4.8-10.8)
[2019-05-09] MEDS: Ampicillin/Sulbactam Sod 3 GM in NS 110 ML IV SCH ×3 (05:42→17:49)
[2019-05-09 05:44] LABS: ANION GAP 8 mmol/L (5-15); BLOOD UREA NITROGEN 4 mg/dL (7-18); CALCIUM 8.1 MG/DL (8.5-10.1); CARBON DIOXIDE 28 MMOL/L (21-32); CHLORIDE 102 MMOL/L (98-107); CREATININE 0.6 MG/DL (0.55-1.30); POTASSIUM 3.1 MMOL/L (3.5-5.1); SODIUM 138 MMOL/L (136-145)
[2019-05-09] MEDS: D5 1/2NS w/KCl 40meq 1000ml 1,000 ML IV SCH ×2 (05:52→16:54)
[2019-05-09] MEDS: PCA shift volume MISC SCH ×2 (07:00→19:13)
[2019-05-09 08:00] VITALS: BP 150/90
[2019-05-09] MEDS: ALPRAZolam 0.5mg tab ORAL PRN ×2 (08:49→22:58)
[2019-05-09] MEDS: Sertraline 100mg tab ORAL SCH (08:50)
[2019-05-09] MEDS: Tolterodine 2mg tab ORAL SCH (08:50)
[2019-05-09] MEDS: HCTZ ORAL SCH (08:53)
[2019-05-09] MEDS: IRBESARTAN ORAL SCH (08:53)
[2019-05-09] MEDS: KCl 20mEq 100ml Premix IVPB SCH ×3 (08:53→12:09)
[2019-05-09] MEDS ORDERED: NS 500ML ONE (10:23)
[2019-05-09] MEDS ORDERED: NS Irrig 1000ml ONE (10:23)
[2019-05-09 12:00] VITALS: BP 143/96
[2019-05-09] MEDS ORDERED: PCA Morphine 1mg/ml 30 ML IV PRN (13:21)
--- NOTE | 2019-05-09 13:22 | General Progress Note ---
Progress Note Progress Note AVSS Less confused, intermittent anxiety controlled with Xanax that she takes chronically Abdomen soft, mildly distended, incision clean, stoma 40% of circumference still dusky, no separation from skin edge Urine 4850 BCIR ileo 320 WBC 7700 Hgb up 11.1 Platelets up 184,000 BUN 4 Cr 0.6 K 3.1 Imp: slowly resolving ileus Plan: KCl infusions continue npo and Blunt (diuresing) maintain continuous drainage of Kock Pouch Zachariah Farris MD May 09, 2019 13:22
[2019-05-09] MEDS ORDERED: Rate Change PCA 1 Each MISC PRN (13:30)
--- NOTE | 2019-05-09 14:38 | Cardiology Progress Note ---
Assessment/Plan Status Narrative 1. Ulcerative colitis 2. Malfunctioning Kock Pouch- s/p revision 3. HTN- controlled 4. Asthma 5. Abnormal EKG- normal LV function 6. DJD 7. Urinary Frequency 8. insomnia 9. Hallucinations- due to meds- improved Assessment/Plan IV Fluids Pain management DVT Px Out of bed- ambulate I/S Clonidine 0.1 mg PRN for SBP>160 Discussed with Patient, and with RN Subjective Cardiovascular: Reports: no symptoms Respiratory: Reports: no symptoms Gastrointestinal/Abdominal: Reports: no symptoms Genitourinary: Reports: no symptoms Subjective 05/03/10- Patient admitted for revision of Kock poch. 05/04/19- s/p revision of Kick pouch 05/05- c/o abdominal pain with deep insp. 05/06 had increased abdominal pain, MS increased . 05/07- had a good day, ambulated 05/08- Had a bad nite due to hallucinations 05/09 pain improved Objective Last 24 Hour Vital Signs Date Time Temp Pulse Resp B/P (MAP) Pulse Ox O2 Delivery O2 Flow Rate FiO2 05/09/19 12:00 98.3 88 17 143/96 (112) 98 05/09/19 12:00 17 05/09/19 09:07 96 Nasal Cannula 2.0 28 05/09/19 09:04 86 18 96 Room Air 21 05/09/19 09:00 Nasal Cannula 2.0 05/09/19 08:51 79 150/90 05/09/19 08:00 17 05/09/19 08:00 98.6 79 18 150/90 (110) 98 05/09/19 04:00 17 05/09/19 04:00 97.9 90 17 153/89 (110) 98 05/09/19 00:04 18 05/09/19 00:00 97.8 95 18 146/87 (106) 96 05/08/19 21:00 Nasal Cannula 2.0 05/08/19 20:30 90 18 97 Room Air 21 05/08/19 20:00 98.0 92 17 152/92 (112) 96 05/08/19 20:00 17 05/08/19 16:00 99.3 91 18 146/95 (112) 96 05/08/19 16:00 18 Cardiovascular: normal rate, regular rhythm, no gallop/murmur Respiratory/Chest: lungs clear Abdomen: non tender Extremities: non-tender, normal inspection, no calf tenderness, no swelling Intake and Output 05/08/19 05/09/19 19:00 07:00 Intake Total 900 ml 1110 ml Output Total 2680 ml 2490 ml Balance -1780 ml -1380 ml IV Total 900 ml 1110 ml Output Urine Total 2550 ml 2300 ml Other 130 ml 190 ml Laboratory Tests Test 05/09/19 04:45 White Blood Count 7.7 K/UL (4.8-10.8) Red Blood Count 3.42 M/UL (4.20-5.40) L Hemoglobin 11.1 G/DL (12.0-16.0) L Hematocrit 32.4 % (37.0-47.0) L Mean Corpuscular Volume 95 FL (80-99) Mean Corpuscular Hemoglobin 32.5 PG (27.0-31.0) H Mean Corpuscular Hemoglobin Concent 34.2 G/DL (32.0-36.0) Red Cell Distribution Width 10.6 % (11.6-14.8) L Platelet Count 184 K/UL (150-450) Mean Platelet Volume 6.3 FL (6.5-10.1) L Neutrophils (%) (Auto) 82.0 % (45.0-75.0) H Lymphocytes (%) (Auto) 4.6 % (20.0-45.0) L Monocytes (%) (Auto) 7.8 % (1.0-10.0) Eosinophils (%) (Auto) 5.0 % (0.0-3.0) H Basophils (%) (Auto) 0.7 % (0.0-2.0) Sodium Level 138 MMOL/L (136-145) Potassium Level 3.1 MMOL/L (3.5-5.1) L Chloride Level 102 MMOL/L (98-107) Carbon Dioxide Level 28 MMOL/L (21-32) Anion Gap 8 mmol/L (5-15) Blood Urea Nitrogen 4 mg/dL (7-18) L Creatinine 0.6 MG/DL (0.55-1.30) Estimat Glomerular Filtration Rate mL/min (>60) Glucose Level 114 MG/DL (74-106) H Calcium Level 8.1 MG/DL (8.5-10.1) Mau Wooten MD May 09, 2019 14:38
[2019-05-09 16:00] VITALS: BP 138/85
[2019-05-09 20:00] VITALS: BP 147/94
[2019-05-09] MEDS: Dyna-Hex 2% Top Sol 2oz TOPIC SCH (20:11)
[2019-05-09] MEDS: Iron Sucrose 100 MG in NS 55 ML IV SCH (20:16)
[2019-05-09] MEDS: Montelukast 10mg tablet ORAL SCH (21:12)
[2019-05-10] VITALS: BP 149/88
[2019-05-10] MEDS: D5 1/2NS w/KCl 40meq 1000ml 1,000 ML IV SCH ×3 (02:10→18:22)
[2019-05-10 04:10] VITALS: BP 143/86
[2019-05-10] MEDS: Ampicillin/Sulbactam Sod 3 GM in NS 110 ML IV SCH ×3 (05:36)
[2019-05-10 06:13] LABS: BASOPHILS % (AUTO) 1.2 % (0.0-2.0); HEMATOCRIT 33.8 % (37.0-47.0); HEMOGLOBIN 11.5 G/DL (12.0-16.0); LYMPHOCYTES % (AUTO) 9.1 % (20.0-45.0); MEAN CORPUSCULAR VOLUME 93 FL (80-99); MONOCYTES % (AUTO) 6.1 % (1.0-10.0); NEUTROPHILS % (AUTO) 76.6 % (45.0-75.0); PLATELET COUNT 239 K/UL (150-450); RED BLOOD COUNT 3.62 M/UL (4.20-5.40); WHITE BLOOD COUNT 6.8 K/UL (4.8-10.8)
[2019-05-10 06:33] LABS: ANION GAP 7 mmol/L (5-15); BLOOD UREA NITROGEN 5 mg/dL (7-18); CALCIUM 8.2 MG/DL (8.5-10.1); CARBON DIOXIDE 26 MMOL/L (21-32); CHLORIDE 104 MMOL/L (98-107); CREATININE 0.6 MG/DL (0.55-1.30); POTASSIUM 3.6 MMOL/L (3.5-5.1); SODIUM 137 MMOL/L (136-145)
[2019-05-10] MEDS: PCA shift volume MISC SCH (07:28)
[2019-05-10 08:00] VITALS: BP 148/93
--- NOTE | 2019-05-10 08:36 | General Progress Note ---
Progress Note Progress Note AVSS Feeling okay. Abdomen soft, healing nicely, stoma stable Urine 3700 Kock pouch ileo 790 WBC 6800 Hgb stable 11.5 Platelets 239,000 BUN 5 Cr 1.6 Imp. 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
[2019-05-10] MEDS: Tolterodine 2mg tab ORAL SCH (08:50)
[2019-05-10] MEDS: HCTZ ORAL SCH (08:50)
[2019-05-10] MEDS: IRBESARTAN ORAL SCH (08:50)
[2019-05-10] MEDS: Sertraline 100mg tab ORAL SCH (08:51)
[2019-05-10 12:00] VITALS: BP 136/93
[2019-05-10] MEDS ORDERED: NS Irrig 1000ml ONE (15:54)
[2019-05-10] MEDS ORDERED: Tubing IV Secondary IV ONE (15:54)
[2019-05-10 16:00] VITALS: BP 155/92
--- NOTE | 2019-05-10 16:29 | Cardiology Progress Note ---
Assessment/Plan Status Narrative 1. Ulcerative colitis 2. Malfunctioning Kock Pouch- s/p revision 3. HTN- controlled 4. Asthma 5. Abnormal EKG- normal LV function 6. DJD 7. Urinary Frequency 8. insomnia 9. Hallucinations- due to meds- improved Assessment/Plan IV Fluids decreased Pain management Advance diet as per Dr. Farris DVT Px Out of bed- ambulate I/S Clonidine 0.1 mg PRN for SBP>160 Discussed with Patient, and with RN Subjective Cardiovascular: Reports: no symptoms Respiratory: Reports: no symptoms Gastrointestinal/Abdominal: Reports: no symptoms Genitourinary: Reports: no symptoms Subjective 05/03/10- Patient admitted for revision of Kock poch. 05/04/19- s/p revision of Kick pouch 05/05- c/o abdominal pain with deep insp. 05/06 had increased abdominal pain, MS increased . 05/07- had a good day, ambulated 05/08- Had a bad nite due to hallucinations 05/09 pain improved 05/10- Ambulating, aguayo DC'd, tolerating clear liquids Objective Last 24 Hour Vital Signs Date Time Temp Pulse Resp B/P (MAP) Pulse Ox O2 Delivery O2 Flow Rate FiO2 05/10/19 12:00 99.2 87 19 136/93 (107) 95 05/10/19 09:00 Room Air 05/10/19 08:56 70 16 96 Room Air 21 05/10/19 08:56 Room Air 05/10/19 08:51 84 148/93 05/10/19 08:00 98.0 84 19 148/93 (111) 95 05/10/19 08:00 18 05/10/19 04:10 98.5 84 19 143/86 (105) 94 05/10/19 04:00 17 05/10/19 00:05 16 05/10/19 00:00 98.3 81 18 149/88 (108) 93 05/09/19 21:00 Room Air 05/09/19 20:00 17 05/09/19 20:00 99.0 89 17 147/94 (111) 94 05/09/19 20:00 88 18 95 Room Air 21 05/09/19 20:00 Room Air 21 Cardiovascular: normal rate, regular rhythm, no gallop/murmur Respiratory/Chest: lungs clear, normal breath sounds Abdomen: soft, hypoactive bowel sounds, tender Extremities: non-tender, normal inspection, no calf tenderness, no swelling Intake and Output 05/09/19 05/10/19 19:00 07:00 Intake Total 1420 ml 1100 ml Output Total 2670 ml 1820 ml Balance -1250 ml -720 ml IV Total 1420 ml 1100 ml Output Urine Total 2250 ml 1450 ml Other 420 ml 370 ml Laboratory Tests Test 05/10/19 05:50 White Blood Count 6.8 K/UL (4.8-10.8) Red Blood Count 3.62 M/UL (4.20-5.40) L Hemoglobin 11.5 G/DL (12.0-16.0) L Hematocrit 33.8 % (37.0-47.0) L Mean Corpuscular Volume 93 FL (80-99) Mean Corpuscular Hemoglobin 31.7 PG (27.0-31.0) H Mean Corpuscular Hemoglobin Concent 34.1 G/DL (32.0-36.0) Red Cell Distribution Width 11.0 % (11.6-14.8) L Platelet Count 239 K/UL (150-450) Mean Platelet Volume 5.5 FL (6.5-10.1) L Neutrophils (%) (Auto) 76.6 % (45.0-75.0) H Lymphocytes (%) (Auto) 9.1 % (20.0-45.0) L Monocytes (%) (Auto) 6.1 % (1.0-10.0) Eosinophils (%) (Auto) 7.0 % (0.0-3.0) H Basophils (%) (Auto) 1.2 % (0.0-2.0) Sodium Level 137 MMOL/L (136-145) Potassium Level 3.6 MMOL/L (3.5-5.1) Chloride Level 104 MMOL/L (98-107) Carbon Dioxide Level 26 MMOL/L (21-32) Anion Gap 7 mmol/L (5-15) Blood Urea Nitrogen 5 mg/dL (7-18) L Creatinine 0.6 MG/DL (0.55-1.30) Estimat Glomerular Filtration Rate mL/min (>60) Glucose Level 116 MG/DL (74-106) H Calcium Level 8.2 MG/DL (8.5-10.1) L Ravan,Mau F. MD May 10, 2019 16:29
[2019-05-10 20:00] VITALS: BP 131/84
[2019-05-10] MEDS: Montelukast 10mg tablet ORAL SCH (20:18)
[2019-05-10] MEDS: Iron Sucrose 100 MG in NS 55 ML IV SCH (20:18)
[2019-05-10] MEDS: Dyna-Hex 2% Top Sol 2oz TOPIC SCH (20:18)
[2019-05-10] MEDS: ALPRAZolam 0.5mg tab ORAL PRN (20:35)
[2019-05-11] VITALS: BP 131/82
--- NOTE | 2019-05-11 01:15 | Consultation ---
DATE OF CONSULTATION: 05/03/2019 CARDIOLOGY CONSULTATION CONSULTING PHYSICIAN: Mau Gonzales M.D. ATTENDING PHYSICIAN: Zachariah Farris M.D. REASON FOR CONSULTATION: Management of hypertension and medical issues perioperatively. HISTORY OF PRESENT ILLNESS: The patient is a 79-year-old female with a history of HTN and past medical history including ulcerative colitis, who has been admitted for malfunctioning Kock pouch. The patient has a history of hypertension as well as asthma and had an abnormal EKG on admission. Therefore, a Cardiology consultation is requested. PAST MEDICAL HISTORY: 1. Ulcerative colitis. 2. Status post creation of a Kock pouch. 3. Hypertension. 4. History of asthma. 5. Degenerative joint disease. 6. History of urinary frequency. ALLERGIES: None known. MEDICATIONS: Include amlodipine 5 mg p.o. daily, Claritin p.r.n., Detrol 2 mg at bedtime, Spiriva 1 puff daily, Singulair 10 mg daily, Zoloft 150 mg daily, albuterol 1 puff every 6 hours p.r.n., Valsartan daily. REVIEW OF SYSTEMS: GENERAL: Denies weight loss, fever, chills, or night sweats. HEENT: Denies headache or sinus problem. PULMONARY: Denies cough or sputum production, but complains of occasional wheezing for which she gets inhalers. GASTROINTESTINAL: Complains of discomfort and malfunction of the Kock pouch. GENITOURINARY: Denies dysuria, but has frequency. MUSCULOSKELETAL: Complains of sinus pain. PHYSICAL EVALUATION: GENERAL: The patient is alert, oriented, pleasant female, in mild discomfort. VITAL SIGNS: Blood pressure is 148/93, heart rate is 111. HEENT: Unremarkable. NECK: Supple. LUNGS: Without rales or wheezes. CARDIAC: S1, S2 are normal without S3, S4. Jugular venous pressure is normal. ABDOMEN: Soft and nontender. Bowel sounds are present. EXTREMITIES: Without cyanosis, clubbing, or edema. LABORATORY DATA: Reviewed. EKG shows sinus rhythm with premature ventricular contractions and possible ant WI. Echocardiogram was performed and showed normal LV systolic function and ejection fraction. IMPRESSION: 1. Malfunctioning Kock pouch. 2. Hypertension. 3. History of asthma. 4. Abnormal EKG with normal LV function on echocardiogram. 5. History of urinary frequency. PLAN: The patient is currently stable to proceed with surgery and has no contraindications. She will be continued on her blood pressure medications and we will adjust accordingly. We will use clonidine 0.1 mg sublingually as needed for blood pressure control during the postoperative phase when the patient is NPO. She will be encouraged to ambulate as soon as possible to avoid DVT and resume her usual medications. Respiratory therapy and bronchodilators will be given postoperatively. Dr. Farris, thank you for allowing us to participate in the care of this patient. I will be happy to follow with you as necessary. Mau Gonzales M.D. DR: KIMBERLYN JOB#: [id number] CC: Zachariah Farris M.D.; Fax#: [phone] MAU GONZALES M.D. ; FAX#: [phone] [facility]
[2019-05-11] MEDS: ALPRAZolam 0.5mg tab ORAL PRN ×2 (02:19→20:43)
[2019-05-11 04:00] VITALS: BP 135/80
[2019-05-11 08:00] VITALS: BP 128/77
[2019-05-11] MEDS ORDERED: Ascorbic Acid 500mg tab ORAL PRN (08:00)
--- NOTE | 2019-05-11 08:16 | General Progress Note ---
Progress Note Progress Note AVSS Tolerated clear liquid diet. has a cough this AM. Voiding but some incontinence of urine overnight Abdomen soft, incision clean, stoma intact laterally at dusky area Urine 1900 Kock pouch ileo 1420 Imp. Improving slowly Plan: BCIR low residue diet Maintain continuous drainage of Kock pouch f/u labs CXR re cough Zachariah Farris MD May 11, 2019 08:16
[2019-05-11] MEDS: Sertraline 100mg tab ORAL SCH (09:26)
[2019-05-11] MEDS: Tolterodine 2mg tab ORAL SCH (09:26)
[2019-05-11] MEDS: IRBESARTAN ORAL SCH (09:26)
[2019-05-11] MEDS: HCTZ ORAL SCH (09:26)
--- NOTE | 2019-05-11 09:40 | Diagnostic Imaging Report ---
Indication: Cough Comparison: 05/03/2019 A single view chest radiograph was obtained. Findings: Lungs are hyperexpanded. Heart is stable and normal in size. Bones are osteopenic. Aorta is mildly ectatic. PICC line is present on the left. The tip projects over the SVC. IMPRESSION: PICC line in good position. COPD
[2019-05-11 12:00] VITALS: BP 131/88
--- NOTE | 2019-05-11 14:46 | Cardiology Progress Note ---
Assessment/Plan Status Narrative 1. Ulcerative colitis 2. Malfunctioning Kock Pouch- s/p revision 3. HTN- controlled 4. Asthma 5. Abnormal EKG- normal LV function 6. DJD 7. Urinary Frequency 8. insomnia 9. Hallucinations- due to meds- improved 10. Hoarseness- R/O viral illness Assessment/Plan CXR done- NAD Pain management Advance diet as per Dr. Farris DVT Px Out of bed- ambulate I/S Lozengers PRN Discussed with Patient, and with RN Subjective Cardiovascular: Reports: no symptoms Respiratory: Reports: cough, other - lost voice Gastrointestinal/Abdominal: Reports: no symptoms Genitourinary: Reports: no symptoms Subjective 05/03/10- Patient admitted for revision of Kock poch. 05/04/19- s/p revision of Kick pouch 05/05- c/o abdominal pain with deep insp. 05/06 had increased abdominal pain, MS increased . 05/07- had a good day, ambulated 05/08- Had a bad nite due to hallucinations 05/09 pain improved 05/10- Ambulating, aguayo DC'd, tolerating clear liquids 05/11- c/o cough, loss of voice, denies F/.C Objective Last 24 Hour Vital Signs Date Time Temp Pulse Resp B/P (MAP) Pulse Ox O2 Delivery O2 Flow Rate FiO2 05/11/19 12:00 97.6 89 18 131/88 (102) 96 05/11/19 10:41 98 Room Air 21 05/11/19 09:28 60 18 98 Room Air 05/11/19 09:27 87 128/77 05/11/19 09:00 Room Air 05/11/19 08:00 98.2 87 20 128/77 (94) 94 05/11/19 04:00 98.8 80 18 135/80 (98) 94 05/11/19 00:00 99.2 88 16 131/82 (98) 95 05/10/19 20:59 81 18 96 Room Air 21 05/10/19 20:58 96 Room Air 21 05/10/19 20:30 Room Air 05/10/19 20:00 98.4 83 16 131/84 (100) 95 05/10/19 16:00 98.1 90 20 155/92 (113) 96 Neck: non-tender Cardiovascular: normal rate, regular rhythm Respiratory/Chest: lungs clear, normal breath sounds, no respiratory distress, no accessory muscle use Abdomen: normal bowel sounds, non tender, soft Extremities: non-tender, normal inspection, no calf tenderness, no swelling Intake and Output 05/10/19 05/11/19 19:00 07:00 Intake Total 550 ml 2010 ml Output Total 1640 ml Balance 550 ml 370 ml Intake Oral 1560 ml IV Total 550 ml 450 ml Output Urine Total 300 ml Other 1340 ml # Voids 2 Mau Gonzales MD May 11, 2019 14:46
[2019-05-11 16:00] VITALS: BP 143/87
[2019-05-11 20:00] VITALS: BP 129/82
[2019-05-11] MEDS: Iron Sucrose 100 MG in NS 55 ML IV SCH (20:30)
[2019-05-11] MEDS: Montelukast 10mg tablet ORAL SCH (20:31)
[2019-05-11] MEDS: Dyna-Hex 2% Top Sol 2oz TOPIC SCH (20:31)
[2019-05-12 00:10] VITALS: BP 121/81
[2019-05-12 04:30] VITALS: BP 140/85
[2019-05-12 06:42] LABS: EOSINOPHILS % (AUTO) 3.7 % (0.0-3.0); HEMATOCRIT 35.1 % (37.0-47.0); HEMOGLOBIN 11.8 G/DL (12.0-16.0); MEAN CORPUSCULAR VOLUME 94 FL (80-99); MONOCYTES % (AUTO) 7.4 % (1.0-10.0); PLATELET COUNT 289 K/UL (150-450); RED BLOOD COUNT 3.73 M/UL (4.20-5.40); RED CELL DISTRIBUTION WIDTH 11.1 % (11.6-14.8); WHITE BLOOD COUNT 7.8 K/UL (4.8-10.8)
[2019-05-12 07:06] LABS: ALANINE AMINOTRANSFERASE 18 U/L (12-78); ALBUMIN 2.7 G/DL (3.4-5.0); ALBUMIN/GLOBULIN RATIO 0.8 (1.0-2.7); ANION GAP 11 mmol/L (5-15); ASPARTATE AMINO TRANSFERASE 20 U/L (15-37); BILIRUBIN,TOTAL 0.7 MG/DL (0.2-1.0); BLOOD UREA NITROGEN 10 mg/dL (7-18); CALCIUM 8.8 MG/DL (8.5-10.1); CARBON DIOXIDE 24 MMOL/L (21-32); CHLORIDE 102 MMOL/L (98-107); CREATININE 0.8 MG/DL (0.55-1.30); POTASSIUM 3.1 MMOL/L (3.5-5.1); SODIUM 137 MMOL/L (136-145)
[2019-05-12 07:35] LABS: ALKALINE PHOSPHATASE 49 U/L (46-116)
[2019-05-12 08:00] VITALS: BP 125/82
[2019-05-12] MEDS: Sertraline 100mg tab ORAL SCH (08:42)
[2019-05-12] MEDS: Tolterodine 2mg tab ORAL SCH (08:43)
[2019-05-12] MEDS: HCTZ ORAL SCH (08:50)
[2019-05-12] MEDS: IRBESARTAN ORAL SCH (08:50)
--- NOTE | 2019-05-12 09:50 | General Progress Note ---
Progress Note Progress Note AVSS Today has laryngitis. cough is better and CXR clear Abdomen soft, incisions clean, stoma stable Urine 1200 Kock pouch ileo 970 CBC stable K 3.1 Albumin 2.7 - eating BCIR diet Imp. Stable Plan: IV KCL today Maintain continuous drainage of Kock pouch - start self-intubations in AM Zachariah Farris MD May 12, 2019 09:50
[2019-05-12] MEDS ORDERED: Sodium Chloride for KCL Premix X 4hrs IV SCH (10:30)
[2019-05-12] MEDS ORDERED: NS Irrig 1000ml ONE (10:52)
[2019-05-12 12:00] VITALS: BP 146/94
[2019-05-12] MEDS ORDERED: IRBESARTAN ORAL SCH (14:00)
[2019-05-12] MEDS ORDERED: HCTZ ORAL SCH (14:00)
--- NOTE | 2019-05-12 14:06 | Cardiology Progress Note ---
Assessment/Plan Status Narrative 1. Ulcerative colitis 2. Malfunctioning Kock Pouch- s/p revision 3. HTN- controlled 4. Asthma 5. Abnormal EKG- normal LV function 6. DJD 7. Urinary Frequency 8. insomnia 9. Hallucinations- due to meds- improved 10. Hoarseness- R/O viral illness- improved with Lozenges and inhalers Assessment/Plan Ventolin inhaler QID DVT Px Out of bed- ambulate I/S Lozenges PRN Discussed with Patient, and with RN Subjective Cardiovascular: Reports: no symptoms Respiratory: Reports: other - voice is improving; Denies: orthopnea, shortness of breath Gastrointestinal/Abdominal: Reports: no symptoms Genitourinary: Reports: no symptoms Subjective 05/03/10- Patient admitted for revision of Kock poch. 05/04/19- s/p revision of Kick pouch 05/05- c/o abdominal pain with deep insp. 05/06 had increased abdominal pain, MS increased . 05/07- had a good day, ambulated 05/08- Had a bad nite due to hallucinations 05/09 pain improved 05/10- Ambulating, aguayo DC'd, tolerating clear liquids 05/11- c/o cough, loss of voice, denies F/.C 05/12 Cough resolved Objective Last 24 Hour Vital Signs Date Time Temp Pulse Resp B/P (MAP) Pulse Ox O2 Delivery O2 Flow Rate FiO2 05/12/19 12:00 97.1 90 20 146/94 (111) 97 05/12/19 09:00 Room Air 05/12/19 08:53 89 18 99 Room Air 21 05/12/19 08:53 99 Room Air 21 05/12/19 08:49 98 125/82 05/12/19 08:00 98.1 98 17 125/82 (96) 95 05/12/19 04:30 97.4 80 16 140/85 (103) 95 05/12/19 00:10 98.6 79 18 121/81 (94) 95 05/11/19 21:23 Room Air 05/11/19 20:00 99.3 89 18 129/82 (98) 95 05/11/19 18:50 71 18 98 Room Air 21 05/11/19 18:50 98 Room Air 21 05/11/19 16:00 98.6 78 20 143/87 (105) 97 Cardiovascular: normal rate, regular rhythm, no gallop/murmur Respiratory/Chest: lungs clear Extremities: non-tender, normal inspection, no calf tenderness, no swelling Intake and Output 05/11/19 05/12/19 19:00 07:00 Intake Total 1200 ml 120 ml Output Total 1670 ml 420 ml Balance -470 ml -300 ml Intake Oral 1200 ml 120 ml Output Urine Total 1000 ml 200 ml Other 670 ml 220 ml # Voids 2 Laboratory Tests Test 05/12/19 05:00 White Blood Count 7.8 K/UL (4.8-10.8) Red Blood Count 3.73 M/UL (4.20-5.40) L Hemoglobin 11.8 G/DL (12.0-16.0) L Hematocrit 35.1 % (37.0-47.0) L Mean Corpuscular Volume 94 FL (80-99) Mean Corpuscular Hemoglobin 31.7 PG (27.0-31.0) H Mean Corpuscular Hemoglobin Concent 33.7 G/DL (32.0-36.0) Red Cell Distribution Width 11.1 % (11.6-14.8) L Platelet Count 289 K/UL (150-450) Mean Platelet Volume 6.1 FL (6.5-10.1) L Neutrophils (%) (Auto) 80.0 % (45.0-75.0) H Lymphocytes (%) (Auto) 8.0 % (20.0-45.0) L Monocytes (%) (Auto) 7.4 % (1.0-10.0) Eosinophils (%) (Auto) 3.7 % (0.0-3.0) H Basophils (%) (Auto) 1.0 % (0.0-2.0) Sodium Level 137 MMOL/L (136-145) Potassium Level 3.1 MMOL/L (3.5-5.1) L Chloride Level 102 MMOL/L (98-107) Carbon Dioxide Level 24 MMOL/L (21-32) Anion Gap 11 mmol/L (5-15) Blood Urea Nitrogen 10 mg/dL (7-18) Creatinine 0.8 MG/DL (0.55-1.30) Estimat Glomerular Filtration Rate mL/min (>60) Glucose Level 79 MG/DL (74-106) Calcium Level 8.8 MG/DL (8.5-10.1) Total Bilirubin 0.7 MG/DL (0.2-1.0) Aspartate Amino Transf (AST/SGOT) 20 U/L (15-37) Alanine Aminotransferase (ALT/SGPT) 18 U/L (12-78) Alkaline Phosphatase 49 U/L (46-116) Total Protein 6.3 G/DL (6.4-8.2) L Albumin 2.7 G/DL (3.4-5.0) L Globulin 3.6 g/dL Albumin/Globulin Ratio 0.8 (1.0-2.7) L Mau Gonzales MD May 12, 2019 14:06
[2019-05-12 16:00] VITALS: BP 140/83
[2019-05-12] MEDS: Dyna-Hex 2% Top Sol 2oz TOPIC SCH (19:41)
[2019-05-12 20:00] VITALS: BP 145/67
[2019-05-12] MEDS: ALPRAZolam 0.5mg tab ORAL PRN (20:33)
[2019-05-12] MEDS: Montelukast 10mg tablet ORAL SCH (20:33)
[2019-05-13] VITALS: BP 138/86
[2019-05-13 04:00] VITALS: BP 124/83
[2019-05-13 05:14] LABS: EOSINOPHILS % (AUTO) 2.6 % (0.0-3.0); HEMATOCRIT 34.5 % (37.0-47.0); HEMOGLOBIN 11.8 G/DL (12.0-16.0); LYMPHOCYTES % (AUTO) 6.6 % (20.0-45.0); MEAN CORPUSCULAR VOLUME 93 FL (80-99); MONOCYTES % (AUTO) 7.6 % (1.0-10.0); NEUTROPHILS % (AUTO) 82.3 % (45.0-75.0); PLATELET COUNT 311 K/UL (150-450); RED CELL DISTRIBUTION WIDTH 11.3 % (11.6-14.8); WHITE BLOOD COUNT 8.7 K/UL (4.8-10.8)
[2019-05-13 05:38] LABS: ALANINE AMINOTRANSFERASE 20 U/L (12-78); ALBUMIN 2.8 G/DL (3.4-5.0); ALBUMIN/GLOBULIN RATIO 0.8 (1.0-2.7); ALKALINE PHOSPHATASE 52 U/L (46-116); ANION GAP 10 mmol/L (5-15); ASPARTATE AMINO TRANSFERASE 21 U/L (15-37); BILIRUBIN,TOTAL 0.6 MG/DL (0.2-1.0); BLOOD UREA NITROGEN 12 mg/dL (7-18); CARBON DIOXIDE 24 MMOL/L (21-32); CHLORIDE 100 MMOL/L (98-107); CREATININE 0.9 MG/DL (0.55-1.30); POTASSIUM 3.8 MMOL/L (3.5-5.1); SODIUM 134 MMOL/L (136-145)
[2019-05-13 08:00] VITALS: BP 117/78
--- NOTE | 2019-05-13 09:49 | General Progress Note ---
Progress Note Progress Note AVSS Eating about 65% of BCIR diet. Laryngitis is better. cough resolved ABdomen soft, lee removed from both incisions and steristrips applied Stoma lateral half retraction of mucosa but there is a well defined tract. Urine 1000 Kock pouch ileo 1140 WBC 8700 Hgb 11.8 K 3.8 BUN 12 Cr 0.9 Albumin up 2.8 IMp. Improving Plan: maintain continuous drainage of Kock Pouch - start intubations in AM Add Ensure Clear 2 daily between meals Zachariah Farris MD May 13, 2019 09:49
[2019-05-13] MEDS: Tolterodine 2mg tab ORAL SCH (09:55)
[2019-05-13] MEDS: Sertraline 100mg tab ORAL SCH (09:56)
[2019-05-13] MEDS: IRBESARTAN ORAL SCH (09:56)
[2019-05-13] MEDS: HCTZ ORAL SCH (09:56)
[2019-05-13 12:00] VITALS: BP 122/66
[2019-05-13 16:00] VITALS: BP 122/77
[2019-05-13 19:53] VITALS: BP 125/82
[2019-05-13] MEDS: Dyna-Hex 2% Top Sol 2oz TOPIC SCH (20:18)
[2019-05-13] MEDS: Montelukast 10mg tablet ORAL SCH (20:18)
[2019-05-13] MEDS: HYDROcodone/Acetamin 5/325 tab ORAL PRN (20:21)
[2019-05-13] MEDS: ALPRAZolam 0.5mg tab ORAL PRN (21:10)
--- NOTE | 2019-05-13 21:15 | Diagnostic Imaging Report ---
EXAM: US Duplex Bilateral Lower Extremity Veins CLINICAL HISTORY: DVT TECHNIQUE: Real-time duplex ultrasound scan of the bilateral lower extremity veins integrating B-mode two-dimensional vascular structure, Doppler spectral analysis, color flow Doppler imaging and compression. COMPARISON: No relevant prior studies available. FINDINGS: Right deep veins: Unremarkable. No DVT in the right common femoral, femoral, proximal deep femoral or popliteal veins. The veins demonstrate normal color flow, are normally compressible, with normal phasic flow and or augmentation response. Right superficial veins: Unremarkable. No thrombus in the visualized right great saphenous vein. Left deep veins: Unremarkable. No DVT in the left common femoral, femoral, proximal deep femoral or popliteal veins. The veins demonstrate normal color flow, are normally compressible, with normal phasic flow and or augmentation response. Left superficial veins: Unremarkable. No thrombus in the visualized left great saphenous vein. Soft tissues: No acute findings. No popliteal cyst. IMPRESSION: Normal study.
[2019-05-14 00:08] VITALS: BP 115/77
[2019-05-14 04:00] VITALS: BP 123/72
[2019-05-14] MEDS: HYDROcodone/Acetamin 5/325 tab ORAL PRN ×2 (06:34→20:07)
[2019-05-14 08:00] VITALS: BP 118/73
[2019-05-14] MEDS: HCTZ ORAL SCH (09:00)
[2019-05-14] MEDS: IRBESARTAN ORAL SCH (09:00)
--- NOTE | 2019-05-14 09:11 | General Progress Note ---
Progress Note Progress Note AVSS c/o left leg pain starting just above her knee down to ankle, worse with walking. Duplex venous scan bilat. negative for any DVT. No GI complaints. Eating about 65% of meals Abdomen soft Stoma with some necrosis and mucosal edge has retracted well down into the abdominal wall. Not safe to remove Kock Pouch ileo catheter and attempt self- intubations today. Will need revision left leg well perfused, no swelling or edema or tenderness. 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 clear liquid diet, IV antibiotics pre-op, SQ heparin pre-op Full discussion with patient and son concerning the problem, nature of the surgery, indications, options and risks Zachariah Farris MD May 14, 2019 09:11
[2019-05-14] MEDS: Sertraline 100mg tab ORAL SCH (09:37)
[2019-05-14] MEDS: Tolterodine 2mg tab ORAL SCH (09:37)
[2019-05-14 12:00] VITALS: BP 113/73
[2019-05-14 16:00] VITALS: BP 101/71
--- NOTE | 2019-05-14 18:11 | Cardiology Progress Note ---
Assessment/Plan Status Narrative 1. Ulcerative colitis 2. Malfunctioning Kock Pouch- s/p revision 3. HTN- controlled 4. Asthma 5. Abnormal EKG- normal LV function 6. DJD 7. Urinary Frequency 8. insomnia 9. Hallucinations- due to meds- improved 10. Hoarseness- R/O viral illness-vs worsening asthma, initially improved with Lozenges and inhalers 11. compromised stoma-planned for surgery in AM Assessment/Plan BP meds on hold today inview of lower BP Mucinnex BID Ventolin inhaler QID DVT Px Stable for surgery in AM Out of bed- ambulate I/S Lozenges PRN Discussed with Patient, and with RN Subjective Cardiovascular: Reports: no symptoms Respiratory: Reports: other - hoarsness worse today. Gastrointestinal/Abdominal: Reports: no symptoms Genitourinary: Reports: no symptoms Subjective 05/03/10- Patient admitted for revision of Kock poch. 05/04/19- s/p revision of Kick pouch 05/05- c/o abdominal pain with deep insp. 05/06 had increased abdominal pain, MS increased . 05/07- had a good day, ambulated 05/08- Had a bad nite due to hallucinations 05/09 pain improved 05/10- Ambulating, aguayo DC'd, tolerating clear liquids 05/11- c/o cough, loss of voice, denies F/.C 05/12 Cough resolved 05/14- c/o hoarsness of voice, planned for repeat surgery in AM. Objective Last 24 Hour Vital Signs Date Time Temp Pulse Resp B/P (MAP) Pulse Ox O2 Delivery O2 Flow Rate FiO2 05/14/19 16:00 98.7 89 20 101/71 (81) 96 05/14/19 12:00 98.3 89 18 113/73 (86) 94 05/14/19 10:37 84 20 97 Room Air 21 05/14/19 09:00 79 118/73 05/14/19 09:00 Room Air 05/14/19 08:00 97.7 79 20 118/73 (88) 96 05/14/19 04:00 98.4 78 17 123/72 (89) 95 05/14/19 00:08 98.0 83 16 115/77 (90) 100 05/13/19 21:00 Room Air 05/13/19 20:00 85 18 98 Room Air 05/13/19 19:53 97.9 84 17 125/82 (96) 98 General Appearance: no apparent distress, alert EENT: normal ENT inspection, pharynx normal Neck: non-tender, supple Cardiovascular: normal rate, no gallop/murmur Respiratory/Chest: expiratory wheezing Abdomen: normal bowel sounds, non tender Extremities: non-tender, normal inspection, no calf tenderness, no swelling Intake and Output 05/13/19 05/14/19 19:00 07:00 Intake Total 960 ml 300 ml Output Total 1570 ml 1070 ml Balance -610 ml -770 ml Intake Oral 960 ml 300 ml Output Urine Total 900 ml 450 ml Other 670 ml 620 ml # Voids 2 Mau Gonzales MD May 14, 2019 18:11
[2019-05-14] MEDS: guaiFENesin ER 600mg tab ORAL SCH (18:17)
[2019-05-14] MEDS: Albuterol ud Inhalation HHN PRN (19:25)
[2019-05-14] MEDS: Dyna-Hex 2% Top Sol 2oz TOPIC SCH (20:07)
[2019-05-14] MEDS: Montelukast 10mg tablet ORAL SCH (20:07)
[2019-05-14 20:12] VITALS: BP 123/75
[2019-05-14] MEDS: ALPRAZolam 0.5mg tab ORAL PRN (21:08)
[2019-05-15] VITALS (15 sets, daily range): BP systolic 104–187; BP diastolic 54–103
[2019-05-15] MEDS: Albuterol ud Inhalation HHN PRN (01:57)
[2019-05-15] MEDS: HYDROcodone/Acetamin 5/325 tab ORAL PRN (07:40)
[2019-05-15] MEDS: Tolterodine 2mg tab ORAL SCH (09:01)
[2019-05-15] MEDS: Sertraline 100mg tab ORAL SCH (09:01)
[2019-05-15] MEDS: HCTZ ORAL SCH (09:02)
[2019-05-15] MEDS: IRBESARTAN ORAL SCH (09:02)
[2019-05-15] MEDS: guaiFENesin ER 600mg tab ORAL SCH ×2 (09:02→17:58)
--- NOTE | 2019-05-15 09:11 | Pre-Procedure Note/Attestation ---
Pre-Procedure Note/Attestation Complete Prior to Procedure Planned Procedure: not applicable Procedure Narrative: revision of Kock Pouch stoma, possible laparotomy Indications for Procedure Pre-Operative Diagnosis: Kock pouch stoma retraction Attestation I attest that I discussed the nature of the procedure; its benefits; risks and complications; and alternatives (and the risks and benefits of such alternatives ), prior to the procedure, with the patient (or the patient's legal risk control field representative). I attest that, if there was a reasonable possibility of needing a blood transfusion, the patient (or the patient's legal risk control field representative) was given the [facility] standardized written summary, pursuant to the Garth Guido Blood Safety Act ([place] Health and Safety Code # 1645, as amended). I attest that I re-evaluated the patient just prior to the surgery and that there has been no change in the patient's H&P, except as documented below:none Zachariah Farris MD May 15, 2019 09:11
[2019-05-15 09:34] LABS: HEMATOCRIT 34.2 % (37.0-47.0); HEMOGLOBIN 11.5 G/DL (12.0-16.0); MEAN CORPUSCULAR VOLUME 93 FL (80-99); PLATELET COUNT 361 K/UL (150-450); RED BLOOD COUNT 3.68 M/UL (4.20-5.40); RED CELL DISTRIBUTION WIDTH 10.9 % (11.6-14.8); WHITE BLOOD COUNT 9.5 K/UL (4.8-10.8)
[2019-05-15 09:43] LABS: ANION GAP 12 mmol/L (5-15); BLOOD UREA NITROGEN 19 mg/dL (7-18); CALCIUM 8.7 MG/DL (8.5-10.1); CARBON DIOXIDE 23 MMOL/L (21-32); CHLORIDE 96 MMOL/L (98-107); POTASSIUM 3.8 MMOL/L (3.5-5.1); SODIUM 130 MMOL/L (136-145)
[2019-05-15] MEDS ORDERED: Cathflo Alteplase 2mg Inj INJ ONE (10:00)
[2019-05-15] MEDS ORDERED: Heparin 5000 units/ml inj SUBQ SCH (10:00)
[2019-05-15] MEDS ORDERED: Piperacillin/Tazobactam 3.375 GM in NS 110 ML IVPB SCH (12:00)
--- NOTE | 2019-05-15 12:15 | Cardiology Progress Note ---
Assessment/Plan Status Narrative 1. Ulcerative colitis 2. Malfunctioning Kock Pouch- s/p revision 3. HTN- controlled 4. Asthma 5. Abnormal EKG- normal LV function 6. DJD 7. Urinary Frequency 8. insomnia 9. Hallucinations- due to meds- improved 10. Hoarseness- R/O viral illness-vs worsening asthma, initially improved with Lozenges and inhalers 11. compromised stoma-planned for surgery today 12. Hyponatremia- ? SIADH Assessment/Plan BP meds on hold today inview of lower BP Mucinnex BID Ventolin inhaler QID DVT Px Stable for surgery Out of bed- ambulate I/S Check Serum and Urine osmolality Check labs post op and in AM Discussed with Patient, and with RN Subjective ROS Limited/Unobtainable: No Cardiovascular: Reports: no symptoms Respiratory: Reports: cough - improved, other - voice is better after resp Tx Gastrointestinal/Abdominal: Reports: no symptoms Genitourinary: Reports: no symptoms Subjective 05/03/10- Patient admitted for revision of Kock poch. 05/04/19- s/p revision of Kick pouch 05/05- c/o abdominal pain with deep insp. 05/06 had increased abdominal pain, MS increased . 05/07- had a good day, ambulated 05/08- Had a bad nite due to hallucinations 05/09 pain improved 05/10- Ambulating, aguayo DC'd, tolerating clear liquids 05/11- c/o cough, loss of voice, denies F/.C 05/12 Cough resolved 05/14- c/o hoarsness of voice, planned for repeat surgery in AM. 05/15- Had resp Tx and CPT , breathing improved, awaiting surgery, NPO Objective Last 24 Hour Vital Signs Date Time Temp Pulse Resp B/P (MAP) Pulse Ox O2 Delivery O2 Flow Rate FiO2 05/15/19 10:31 68 20 96 Room Air 21 05/15/19 09:01 76 130/73 05/15/19 09:00 Room Air 05/15/19 08:00 98.4 16 130/73 (92) 97 05/15/19 04:00 97.6 76 16 133/72 (92) 97 05/15/19 01:57 70 18 100 Room Air 21 64 18 97 05/15/19 01:24 98.2 75 18 121/72 (88) 96 9/22/19 20:43 Room Air 05/14/19 20:12 99.0 85 18 123/75 (91) 95 05/14/19 19:26 73 18 100 Room Air 21 69 18 98 05/14/19 19:26 69 20 98 Room Air 21 05/14/19 16:00 98.7 89 20 101/71 (81) 96 General Appearance: no apparent distress, alert EENT: normal ENT inspection Neck: supple Cardiovascular: normal rate, regular rhythm, no gallop/murmur Respiratory/Chest: lungs clear, no respiratory distress, no accessory muscle use Abdomen: normal bowel sounds, non tender, soft, no organomegaly, no mass Extremities: non-tender, normal inspection Intake and Output 05/14/19 05/15/19 18:59 06:59 Intake Total 1148 ml 340 ml Output Total 1045 ml 1065 ml Balance 103 ml -725 ml Intake Oral 1148 ml 340 ml Output Urine Total 525 ml 625 ml Other 520 ml 440 ml # Voids 3 4 Laboratory Tests Test 05/15/19 09:15 White Blood Count 9.5 K/UL (4.8-10.8) Red Blood Count 3.68 M/UL (4.20-5.40) L Hemoglobin 11.5 G/DL (12.0-16.0) L Hematocrit 34.2 % (37.0-47.0) L Mean Corpuscular Volume 93 FL (80-99) Mean Corpuscular Hemoglobin 31.3 PG (27.0-31.0) H Mean Corpuscular Hemoglobin Concent 33.8 G/DL (32.0-36.0) Red Cell Distribution Width 10.9 % (11.6-14.8) L Platelet Count 361 K/UL (150-450) Mean Platelet Volume 6.0 FL (6.5-10.1) L Neutrophils (%) (Auto) % (45.0-75.0) Lymphocytes (%) (Auto) % (20.0-45.0) Monocytes (%) (Auto) % (1.0-10.0) Eosinophils (%) (Auto) % (0.0-3.0) Basophils (%) (Auto) % (0.0-2.0) Differential Total Cells Counted 100 Neutrophils % (Manual) 84 % (45-75) H Lymphocytes % (Manual) 7 % (20-45) L Monocytes % (Manual) 8 % (1-10) Eosinophils % (Manual) 1 % (0-3) Basophils % (Manual) 0 % (0-2) Band Neutrophils 0 % (0-8) Platelet Estimate Adequate Platelet Morphology Normal Red Blood Cell Morphology Normal Sodium Level 130 MMOL/L (136-145) L Potassium Level 3.8 MMOL/L (3.5-5.1) Chloride Level 96 MMOL/L (98-107) L Carbon Dioxide Level 23 MMOL/L (21-32) Anion Gap 12 mmol/L (5-15) Blood Urea Nitrogen 19 mg/dL (7-18) H Creatinine 1.0 MG/DL (0.55-1.30) Estimat Glomerular Filtration Rate mL/min (>60) Glucose Level 90 MG/DL (74-106) Calcium Level 8.7 MG/DL (8.5-10.1) Mau Gonzales MD May 15, 2019 12:15
[2019-05-15 12:21] LABS: APPEARANCE,URINE CLEAR; BILIRUBIN, URINE NEGATIVE (NEGATIVE); COLOR,URINE PALE YELLOW; GLUCOSE, URINE (UA) NEGATIVE (NEGATIVE); KETONES,URINE NEGATIVE (NEGATIVE); LEUKOCYTE ESTERASE ,URINE NEGATIVE (NEGATIVE); NITRITE,URINE NEGATIVE (NEGATIVE); PH,URINE 5 (4.5-8.0); PROTEIN,URINE NEGATIVE (NEGATIVE); UROBILINOGEN,URINE NORMAL MG/DL (0.0-1.0)
[2019-05-15] MEDS ORDERED: Bacitracin 50000 Units Vial ONE (12:59)
[2019-05-15] MEDS ORDERED: NeoSporin Gu Irrig 1ml Amp IRRIG ONE (12:59)
[2019-05-15] MEDS ORDERED: Sterile Water Irrig 1000ml IRRIG ONE (13:00)
[2019-05-15] MEDS ORDERED: LR 1000ml ONE (13:00)
[2019-05-15] MEDS ORDERED: NS Irrig 1000ml IRRIG ONE (13:00)
[2019-05-15] MEDS ORDERED: Neostigmine 1mg/ml 10ml Inj ONE (13:00)
[2019-05-15] MEDS ORDERED: Rocuronium Bromide 50mg/5ml Inj IV ONE (13:04)
[2019-05-15] MEDS ORDERED: Midazolam 2mg/2ml Inj ONE (13:13)
[2019-05-15] MEDS ORDERED: Propofol 200mg/20ml IV ONE (13:14)
[2019-05-15] MEDS ORDERED: Lidocaine 1% MPF 10mg/ml 5ml ONE (13:14)
[2019-05-15] MEDS ORDERED: fentaNYL 100 mcg/2 mL IV ONE (13:14)
[2019-05-15] MEDS ORDERED: Sodium Chloride 10ml vial INJ ONE (13:14)
[2019-05-15] MEDS ORDERED: Dexamethasone 4mg/ml vial ONE (13:14)
[2019-05-15] MEDS ORDERED: LR 1000ml 1,000 ML IVLG SCH (13:47)
--- NOTE | 2019-05-15 13:54 | Immediate Post-Op Evaluation ---
Immediate Post-Op Evalulation Immediate Post-Op Evalulation Procedure: Repair of Breakdown of Ileostomy Date of Evaluation: May 15, 2019 Time of Evaluation: 15:04 IV Fluids: 300 LR Blood Products: 0 Estimated Blood Loss: 25 Urinary Output: 300 Blood Pressure Systolic: 182 Blood Pressure Diastolic: 99 Pulse Rate: 87 Respiratory Rate: 16 O2 Sat by Pulse Oximetry: 100 Temperature (Fahrenheit): 97.2 Pain Score (1-10): 3 Nausea: No Vomiting: No Complications 0 Patient Status: awake, reacts, patent, extubated, none Hydration Status: adequate Dru.375 gms Zosyn IV Given Within 1 Hr of Incision: Yes Time Given: 13:31 Bhanu Barajas MD May 15, 2019 13:54
[2019-05-15] MEDS ORDERED: ePHEDrine 50mg/ml Inj ONE (13:56)
[2019-05-15] MEDS ORDERED: DiphenhydrAMINE 50mg/ml Inj IVP PRN ×2 (14:00→14:45)
[2019-05-15] MEDS ORDERED: HYDROcodone/Acetamin 7.5/325 tab ORAL PRN (14:00)
[2019-05-15] MEDS ORDERED: fentaNYL 100 mcg/2 mL IV PRN (14:00)
[2019-05-15] MEDS ORDERED: Acetaminophen (Non formulary) 100 ML IV ONE (14:00)
[2019-05-15] MEDS ORDERED: Atropine Sulfate 0.4mg/ml inj IVP PRN (14:00)
[2019-05-15] MEDS ORDERED: Midazolam 2mg/2ml Inj IVP PRN (14:00)
[2019-05-15] MEDS ORDERED: oxyCODONE HCL/Acetaminophen 5/325mg ORAL PRN (14:00)
[2019-05-15] MEDS ORDERED: Hydromorphone 0.5mg/0.5ml inj IVP PRN (14:00)
[2019-05-15] MEDS ORDERED: HYDROcodone/Acetamin 5/325 tab ORAL PRN (14:00)
[2019-05-15] MEDS ORDERED: LORazepam Inj 2mg/ml 1ml IV PRN (14:00)
[2019-05-15] MEDS ORDERED: Ketorolac 30mg Inj IV PRN ×2 (14:00)
[2019-05-15] MEDS ORDERED: Glycopyrrolate 0.2mg/ml 1ml Vial ONE (14:28)
[2019-05-15] MEDS ORDERED: Naloxone 0.4mg/ml Inj IVP PRN (14:45)
[2019-05-15] MEDS ORDERED: PCA Education Pamphlet MISC ONE (14:45)
--- NOTE | 2019-05-15 14:45 | Brief Operative Note ---
Immediate Post Operative Note Operative Note Pre-op Diagnosis: Kock pouch stoma retraction Procedure: laparotomy, repair enterotomy Post-op Diagnosis: Kock pouch stoma retraction Post-op Diagnosis: same as pre-op Findings: consistent w/pre-op dx studies Surgeon: mary Mining Helper: channing Anesthesiologist: danielle Anesthesia: general Specimen: none Complications: none Condition: stable Fluids: see anesthesia record Estimated Blood Loss: minimal Drains: other - 28 Blunt to Kock Pouch Implant(s) used?: No Zachariah Farris MD May 15, 2019 14:45
[2019-05-15] MEDS ORDERED: Rate Change PCA 1 Each MISC PRN (15:00)
[2019-05-15] MEDS ORDERED: PCA Morphine 1mg/ml 30 ML IV PRN (15:00)
[2019-05-15 17:27] LABS: ANION GAP 10 mmol/L (5-15); BLOOD UREA NITROGEN 18 mg/dL (7-18); CALCIUM 8.8 MG/DL (8.5-10.1); CARBON DIOXIDE 23 MMOL/L (21-32); CHLORIDE 99 MMOL/L (98-107); POTASSIUM 3.8 MMOL/L (3.5-5.1); SODIUM 132 MMOL/L (136-145)
--- NOTE | 2019-05-15 18:30 | Operative Note - Dictated ---
DATE OF OPERATION: 05/15/2019 SURGEON: Zachariah Farris M.D. COMMERCIAL INTERN: James Glover M.D. ANESTHESIOLOGIST: Bhanu Barajas M.D. TYPE OF ANESTHESIA: General endotracheal. PREOPERATIVE DIAGNOSES: 1. Early postoperative Kock pouch stoma retraction. 2. History of ulcerative colitis. 3. STATUS POST MULTIPLE ABDOMINAL OPERATIONS: 3.1. Proctocolectomy and Kock pouch, 1979. 3.2. Oophorectomy for benign cyst, 2016. 3.3. Laparotomy with complex revision of Kock pouch with creation of new valve and relocation of stoma to the left lower quadrant on May 04, 2019 POSTOPERATIVE DIAGNOSES: 1. Early postoperative Kock pouch stoma retraction. 2. History of ulcerative colitis. 3. STATUS POST MULTIPLE ABDOMINAL OPERATIONS: 3.1. Proctocolectomy and Kock pouch, 1979. 3.2. Oophorectomy for benign cyst, 2015. 3.3. Laparotomy with complex revision of Kock pouch with creation of new valve and relocation of stoma to the left lower quadrant on May 04, 2019 OPERATION PERFORMED: Laparotomy and debridement of Kock pouch stoma. DESCRIPTION OF PROCEDURE: The patient was taken to the operating room and under general anesthesia with sequential compression device stockings and Blunt catheter in place, she was prepped and draped in the usual fashion. The indwelling Kock pouch 28-Burmese Blunt catheter was removed and could be reinserted without difficulty. The stoma was retracted approximately 3 cm down the abdominal wall and there was no way to mobilize it back up to the skin without laparotomy. I reopened the prior laparotomy incision, but unlike the prior surgery where there were no adhesions, there was now an intense adhesive reaction and enterotomy was unavoidably created. The bowel loop mobilized and the enterotomy closed transversely with a continuous 3-0 Vicryl suture without narrowing the lumen. I felt that to persist in dissecting the area of the Kock pouch stoma would create a potential unrepairable injury to the pouch. I felt that with maintaining a catheter in the stoma that the tract will gradually fibrose and leave a well-formed tract and a subsequent revision could be performed months from now if needed. The anterior fascia was closed with continuous looped #1 PDS. Subcutaneous tissue was irrigated with antibiotic solution and skin closed with lee. A 28-Burmese Blunt was positioned in the pouch, confirmed with irrigation, and sutured to the skin with two sutures of 2-0 silk and flushed and connected to a gravity drainage bag. The stoma tissues were debrided, cauterized, and gauze packing placed. The patient tolerated the procedure well. Zachariah Farris M.D. DR: Patricia JOB#: [id number] CC: MICHAEL
[2019-05-15] MEDS: PCA shift volume MISC SCH (19:13)
[2019-05-15] MEDS ORDERED: Morphine Sulfate 2mg/ml Inj(IV/IM USE ONLY) IM PRN (19:45)
[2019-05-15] MEDS: Montelukast 10mg tablet ORAL SCH ×3 (20:13→21:00)
[2019-05-15] MEDS: Dyna-Hex 2% Top Sol 2oz TOPIC SCH (20:13)
[2019-05-15] MEDS: ALPRAZolam 0.5mg tab ORAL PRN (20:21)
[2019-05-15] MEDS ORDERED: Fat Emulsion Iv 20% 250 ML IV SCH (21:00)
[2019-05-15] MEDS: Piperacillin/Tazobactam 3.375 GM in NS 110 ML IVPB SCH (22:32)
[2019-05-16] VITALS: BP 117/66
[2019-05-16 04:00] VITALS: BP 136/76
[2019-05-16] MEDS: ALPRAZolam 0.5mg tab ORAL PRN ×2 (04:16→21:16)
[2019-05-16] MEDS: Piperacillin/Tazobactam 3.375 GM in NS 110 ML IVPB SCH ×3 (06:14→20:51)
[2019-05-16 06:50] LABS: HEMATOCRIT 32.7 % (37.0-47.0); HEMOGLOBIN 10.9 G/DL (12.0-16.0); MEAN CORPUSCULAR VOLUME 95 FL (80-99); PLATELET COUNT 379 K/UL (150-450); RED BLOOD COUNT 3.45 M/UL (4.20-5.40); RED CELL DISTRIBUTION WIDTH 11.4 % (11.6-14.8); WHITE BLOOD COUNT 12.7 K/UL (4.8-10.8)
[2019-05-16 06:55] LABS: ALANINE AMINOTRANSFERASE 20 U/L (12-78); ALBUMIN 2.5 G/DL (3.4-5.0); ALBUMIN/GLOBULIN RATIO 0.6 (1.0-2.7); ALKALINE PHOSPHATASE 56 U/L (46-116); ANION GAP 9 mmol/L (5-15); ASPARTATE AMINO TRANSFERASE 23 U/L (15-37); BILIRUBIN,TOTAL 0.6 MG/DL (0.2-1.0); BLOOD UREA NITROGEN 14 mg/dL (7-18); CALCIUM 8.1 MG/DL (8.5-10.1); CARBON DIOXIDE 24 MMOL/L (21-32); CHLORIDE 100 MMOL/L (98-107); CREATININE 0.9 MG/DL (0.55-1.30); POTASSIUM 3.6 MMOL/L (3.5-5.1); SODIUM 133 MMOL/L (136-145)
--- NOTE | 2019-05-16 07:20 | 48 Hour Post Anesthesia Eval ---
Post Anesthesia Evaluation Procedure: Repair of Breakdown of Ileostomy Date of Evaluation: May 16, 2019 Time of Evaluation: 06:47 Blood Pressure Systolic: 136 0: 76 Pulse Rate: 82 Respiratory Rate: 17 Temperature (Fahrenheit): 98.4 O2 Sat by Pulse Oximetry: 100 Airway: patent Nausea: No Vomiting: No Pain Intensity: 3 Hydration Status: adequate Cardiopulmonary Status: Stable Mental Status/LOC: patient returned to baseline Follow-up Care/Observations: 0 Post-Anesthesia Complications: 0 Follow-up care needed: N/A Bhanu Barajas MD May 16, 2019 07:19
[2019-05-16] MEDS: PCA shift volume MISC SCH ×2 (07:23→19:00)
[2019-05-16 07:57] VITALS: BP 137/75
[2019-05-16] MEDS: guaiFENesin ER 600mg tab ORAL SCH ×2 (08:35→18:53)
[2019-05-16] MEDS: Sertraline 100mg tab ORAL SCH (08:35)
[2019-05-16] MEDS: Tolterodine 2mg tab ORAL SCH (08:36)
[2019-05-16] MEDS ORDERED: Rate Change PCA 1 Each MISC PRN (08:45)
[2019-05-16] MEDS ORDERED: Naloxone 0.4mg/ml Inj IVP PRN (08:46)
[2019-05-16] MEDS ORDERED: PCA Morphine 1mg/ml 30 ML IV PRN (08:54)
[2019-05-16] MEDS ORDERED: DiphenhydrAMINE 50mg/ml Inj IVP PRN (08:55)
[2019-05-16] MEDS ORDERED: Ketorolac 30mg Inj IV PRN (08:56)
--- NOTE | 2019-05-16 08:57 | General Progress Note ---
Progress Note Progress Note AVSS Intermittent pain despite Morphine barrel loader (no basal infusion) Chest - decreased expansion Cor - reg rhythm Abdomen mildly distended, soft, incision clean, stoma retracted with open tract and indwelling catheter sutured in place (28 Blunt) Urine 400cc/12 hrs Kock pouch ileo - small amount enteric WBC 12,700 Hgb 10.9 Na up 133 BUN 14 Cr 0.9 Albumin 2.5 Imp: Ileus Malnutrition status-post 2 operations in 2 weeks Plan: TPN Maintain continuous drainage of Kock pouch add flow-dose Toradol for 48 hours f/u labs PT mobility protocol Zachariah Farris MD May 16, 2019 08:57
[2019-05-16] MEDS ORDERED: Cathflo Alteplase 2mg Inj INJ SCH (09:00)
[2019-05-16] MEDS: HCTZ ORAL SCH (09:52)
[2019-05-16] MEDS: IRBESARTAN ORAL SCH (09:52)
[2019-05-16] MEDS: Albuterol ud Inhalation HHN SCH ×3 (11:56→19:17)
[2019-05-16 12:00] VITALS: BP 137/68
--- NOTE | 2019-05-16 15:43 | Cardiology Progress Note ---
Assessment/Plan Status Narrative 1. Ulcerative colitis 2. Malfunctioning Kock Pouch- s/p revision 3. HTN- controlled 4. Asthma- with exacerbation- on Resp Tx. 5. Abnormal EKG- normal LV function 6. DJD 7. Urinary Frequency 8. insomnia 9. Hallucinations- due to meds- improved 10. Hoarseness- R/O viral illness-vs worsening asthma, initially improved with Lozenges and inhalers 11. compromised stoma-s/p revision 12. Hyponatremia- improving Assessment/Plan Mucinnex BID Albuterol by HHN QID DVT Px Out of bed- ambulate I/S Discussed with Patient, and with RN Subjective Cardiovascular: Reports: no symptoms - cough improved, voice better Gastrointestinal/Abdominal: Reports: abdominal pain Genitourinary: Reports: no symptoms Subjective 05/03/10- Patient admitted for revision of Kock poch. 05/04/19- s/p revision of Kick pouch 05/05- c/o abdominal pain with deep insp. 05/06 had increased abdominal pain, MS increased . 05/07- had a good day, ambulated 05/08- Had a bad nite due to hallucinations 05/09 pain improved 05/10- Ambulating, aguayo DC'd, tolerating clear liquids 05/11- c/o cough, loss of voice, denies F/.C 05/12 Cough resolved 05/14- c/o hoarsness of voice, planned for repeat surgery in AM. 05/15- Had resp Tx and CPT , breathing improved, awaiting surgery, NPO 05/16- sp re-op yesterday. CO abd pain, breathing better Objective Last 24 Hour Vital Signs Date Time Temp Pulse Resp B/P (MAP) Pulse Ox O2 Delivery O2 Flow Rate FiO2 05/16/19 14:19 89 20 100 Nasal Cannula 2.0 83 20 99 05/16/19 12:00 16 05/16/19 12:00 98.4 90 19 137/68 (91) 05/16/19 08:36 87 137/75 05/16/19 08:00 Nasal Cannula 2.0 Nasal Cannula 2.0 05/16/19 08:00 17 05/16/19 07:57 97.9 87 17 137/75 (95) 100 05/16/19 07:20 82 17 100 05/16/19 04:00 98.4 82 17 136/76 (96) 100 05/16/19 04:00 17 05/16/19 00:00 16 05/16/19 00:00 97.5 79 16 117/66 (83) 99 05/15/19 21:00 Nasal Cannula 2.0 Nasal Cannula 2.0 05/15/19 20:00 18 05/15/19 19:53 97.8 84 18 118/61 (80) 98 05/15/19 19:21 81 18 98 Nasal Cannula 2.0 28 05/15/19 17:00 97.2 83 16 107/55 (72) 100 05/15/19 16:30 97.1 104/54 (71) 05/15/19 16:05 97.9 84 14 113/56 100 Nasal Cannula 3 05/15/19 16:00 16 05/15/19 15:50 97 12 148/75 100 Nasal Cannula 3 General Appearance: no apparent distress, alert Cardiovascular: normal rate, regular rhythm, no gallop/murmur Respiratory/Chest: lungs clear Abdomen: soft, hypoactive bowel sounds, tender Extremities: non-tender, normal inspection, no calf tenderness, no swelling Intake and Output 05/15/19 05/16/19 19:00 07:00 Intake Total 600 ml 763.0 ml Output Total 1400 ml 425 ml Balance -800 ml 338.0 ml IV Total 600 ml 763.0 ml Output Urine Total 1100 ml 400 ml Estimated Blood Loss 25 ml Other 275 ml 25 ml Laboratory Tests Test 05/15/19 17:00 05/16/19 04:30 Sodium Level 132 MMOL/L (136-145) L 133 MMOL/L (136-145) L Potassium Level 3.8 MMOL/L (3.5-5.1) 3.6 MMOL/L (3.5-5.1) Chloride Level 99 MMOL/L (98-107) 100 MMOL/L (98-107) Carbon Dioxide Level 23 MMOL/L (21-32) 24 MMOL/L (21-32) Anion Gap 10 mmol/L (5-15) 9 mmol/L (5-15) Blood Urea Nitrogen 18 mg/dL (7-18) 14 mg/dL (7-18) Creatinine 1.0 MG/DL (0.55-1.30) 0.9 MG/DL (0.55-1.30) Estimat Glomerular Filtration Rate mL/min (>60) mL/min (>60) Glucose Level 149 MG/DL (74-106) H 106 MG/DL (74-106) Osmolality 286 mOsm/kg (297-317) L Calcium Level 8.8 MG/DL (8.5-10.1) 8.1 MG/DL (8.5-10.1) L White Blood Count 12.7 K/UL (4.8-10.8) H Red Blood Count 3.45 M/UL (4.20-5.40) L Hemoglobin 10.9 G/DL (12.0-16.0) L Hematocrit 32.7 % (37.0-47.0) L Mean Corpuscular Volume 95 FL (80-99) Mean Corpuscular Hemoglobin 31.5 PG (27.0-31.0) H Mean Corpuscular Hemoglobin Concent 33.2 G/DL (32.0-36.0) Red Cell Distribution Width 11.4 % (11.6-14.8) L Platelet Count 379 K/UL (150-450) Mean Platelet Volume 5.5 FL (6.5-10.1) L Neutrophils (%) (Auto) % (45.0-75.0) Lymphocytes (%) (Auto) % (20.0-45.0) Monocytes (%) (Auto) % (1.0-10.0) Eosinophils (%) (Auto) % (0.0-3.0) Basophils (%) (Auto) % (0.0-2.0) Differential Total Cells Counted 100 Neutrophils % (Manual) 93 % (45-75) H Lymphocytes % (Manual) 3 % (20-45) L Monocytes % (Manual) 4 % (1-10) Eosinophils % (Manual) 0 % (0-3) Basophils % (Manual) 0 % (0-2) Band Neutrophils 0 % (0-8) Platelet Estimate Adequate Platelet Morphology Normal Total Bilirubin 0.6 MG/DL (0.2-1.0) Aspartate Amino Transf (AST/SGOT) 23 U/L (15-37) Alanine Aminotransferase (ALT/SGPT) 20 U/L (12-78) Alkaline Phosphatase 56 U/L (46-116) Total Protein 6.4 G/DL (6.4-8.2) Albumin 2.5 G/DL (3.4-5.0) L Globulin 3.9 g/dL Albumin/Globulin Ratio 0.6 (1.0-2.7) L Microbiology Date/Time Source Procedure Growth Status 05/15/19 11:45 Urine,Clean Catch Urine Culture - Preliminary Resulted Mau Gonzales MD May 16, 2019 15:43
[2019-05-16 16:00] VITALS: BP 136/71
[2019-05-16 20:00] VITALS: BP 131/73
[2019-05-16] MEDS ORDERED: Dextrose 10% 1,000 ML IV PRN (20:00)
[2019-05-16] MEDS: Dyna-Hex 2% Top Sol 2oz TOPIC SCH (20:50)
[2019-05-16] MEDS: Montelukast 10mg tablet ORAL SCH (20:51)
[2019-05-16] MEDS: Fat Emulsion Iv 20% 216 ML in Tpn 1,584 ML IV SCH (20:52)
[2019-05-16] MEDS ORDERED: Phytonadione 10 mg/mL 1ml amp SUBQ SCH (21:00)
[2019-05-17] VITALS: BP 143/86
[2019-05-17] MEDS: NovoLOG Insulin Flexpen SUBQ SCH ×4 (00:06→18:22)
[2019-05-17] MEDS: Albuterol ud Inhalation HHN SCH ×4 (01:26→19:16)
[2019-05-17 04:00] VITALS: BP 142/79
[2019-05-17] MEDS: Piperacillin/Tazobactam 3.375 GM in NS 110 ML IVPB SCH ×3 (05:03→21:50)
[2019-05-17 05:36] LABS: HEMATOCRIT 31.3 % (37.0-47.0); HEMOGLOBIN 10.4 G/DL (12.0-16.0); MEAN CORPUSCULAR VOLUME 94 FL (80-99); PLATELET COUNT 339 K/UL (150-450); RED BLOOD COUNT 3.31 M/UL (4.20-5.40); RED CELL DISTRIBUTION WIDTH 11.4 % (11.6-14.8); WHITE BLOOD COUNT 9.6 K/UL (4.8-10.8)
[2019-05-17 06:17] LABS: ALANINE AMINOTRANSFERASE 15 U/L (12-78); ALBUMIN 2.2 G/DL (3.4-5.0); ALBUMIN/GLOBULIN RATIO 0.6 (1.0-2.7); ALKALINE PHOSPHATASE 56 U/L (46-116); ANION GAP 10 mmol/L (5-15); ASPARTATE AMINO TRANSFERASE 19 U/L (15-37); BILIRUBIN,TOTAL 0.5 MG/DL (0.2-1.0); BLOOD UREA NITROGEN 7 mg/dL (7-18); CALCIUM 8.2 MG/DL (8.5-10.1); CARBON DIOXIDE 23 MMOL/L (21-32); CHLORIDE 103 MMOL/L (98-107); CREATININE 0.7 MG/DL (0.55-1.30); PHOSPHORUS 1.4 MG/DL (2.5-4.9); POTASSIUM 3.6 MMOL/L (3.5-5.1); SODIUM 136 MMOL/L (136-145)
[2019-05-17] MEDS: PCA shift volume MISC SCH ×2 (07:00→19:00)
[2019-05-17] MEDS ORDERED: Naloxone 0.4mg/ml Inj IVP PRN (07:57)
[2019-05-17 08:00] VITALS: BP 152/83
[2019-05-17] MEDS ORDERED: Rate Change PCA 1 Each MISC PRN (08:00)
--- NOTE | 2019-05-17 08:10 | General Progress Note ---
Progress Note Progress Note AVSS Ambulated yesterday. Pain controlled Abdomen mild soft distention, incision clean, stoma tissues slowly healing Urine 1550 Kock pouch ileo 190 WBC 9600 Hgb 10.4 P1.4 Mg1.7 albumin 2.2 urine - proteus sensitive to the Zosyn she is receiving IMp. Ileus Plan: continue TPN, npo, Kock pouch and urinary catheters to drainage infuse Mg and P increase ambulation Zachariah Farris MD May 17, 2019 08:10
[2019-05-17] MEDS ORDERED: Albuterol ud Inhalation HHN PRN (08:16)
[2019-05-17] MEDS ORDERED: PCA Morphine 1mg/ml 30 ML IV PRN (08:19)
[2019-05-17] MEDS: Tolterodine 2mg tab ORAL SCH (09:59)
[2019-05-17] MEDS ORDERED: Potassium Phosphate 30 MM in NS 275 ML IV ONE (10:00)
[2019-05-17] MEDS: Sertraline 100mg tab ORAL SCH (10:00)
[2019-05-17] MEDS: guaiFENesin ER 600mg tab ORAL SCH ×2 (10:01→18:12)
[2019-05-17] MEDS: HCTZ ORAL SCH (10:12)
[2019-05-17] MEDS: IRBESARTAN ORAL SCH (10:12)
[2019-05-17 12:00] VITALS: BP 152/98
[2019-05-17] MEDS: ALPRAZolam 0.5mg tab ORAL PRN ×2 (13:58→20:24)
[2019-05-17 16:00] VITALS: BP 140/80
--- NOTE | 2019-05-17 16:06 | Cardiology Progress Note ---
Assessment/Plan Status Narrative 1. Ulcerative colitis 2. Malfunctioning Kock Pouch- s/p revision 3. HTN- controlled 4. Asthma- with exacerbation- on Resp Tx. 5. Abnormal EKG- normal LV function 6. DJD 7. Urinary Frequency 8. insomnia 9. Hallucinations- due to meds- improved 10. Hoarseness- R/O viral illness-vs worsening asthma, initially improved with Lozenges and inhalers 11. compromised stoma-s/p revision 12. Hyponatremia- improving Assessment/Plan Mucinnex BID Albuterol by HHN QID DVT Px Out of bed- ambulate I/S Q1h O2 PRN- hopefully can stop tomorrow Discussed with Patient, and with RN Subjective Cardiovascular: Reports: no symptoms Respiratory: Reports: other - breathing improved Gastrointestinal/Abdominal: Reports: abdominal pain Genitourinary: Reports: no symptoms Subjective 05/03/10- Patient admitted for revision of Kock poch. 05/04/19- s/p revision of Kick pouch 05/05- c/o abdominal pain with deep insp. 05/06 had increased abdominal pain, MS increased . 05/07- had a good day, ambulated 05/08- Had a bad nite due to hallucinations 05/09 pain improved 05/10- Ambulating, aguayo DC'd, tolerating clear liquids 05/11- c/o cough, loss of voice, denies F/.C 05/12 Cough resolved 05/14- c/o hoarsness of voice, planned for repeat surgery in AM. 05/15- Had resp Tx and CPT , breathing improved, awaiting surgery, NPO 05/16- sp re-op yesterday. CO abd pain, breathing better 05/17- on O2 NC, RA Sat 93%, no CP, c/o weakness Objective Last 24 Hour Vital Signs Date Time Temp Pulse Resp B/P (MAP) Pulse Ox O2 Delivery O2 Flow Rate FiO2 05/17/19 13:34 91 20 99 Nasal Cannula 2.0 93 20 97 05/17/19 12:00 16 05/17/19 10:00 72 153/82 05/17/19 09:00 Nasal Cannula 2.0 Nasal Cannula 2.0 05/17/19 08:14 88 20 99 Nasal Cannula 2.0 91 20 95 05/17/19 08:00 97.3 18 152/83 (106) 97 05/17/19 08:00 14 05/17/19 04:00 97.9 101 21 142/79 (100) 95 05/17/19 04:00 15 05/17/19 01:26 89 18 100 Nasal Cannula 2.0 88 18 96 05/17/19 00:00 15 05/17/19 00:00 98.2 86 15 143/86 (105) 95 05/16/19 21:00 Nasal Cannula 2.0 Nasal Cannula 2.0 05/16/19 20:00 16 05/16/19 20:00 97.6 100 16 131/73 (92) 97 05/16/19 19:17 89 16 99 Nasal Cannula 2.0 92 16 96 05/16/19 16:00 97.9 90 20 136/71 (92) 96 05/16/19 16:00 14 General Appearance: no apparent distress, alert Neck: supple Cardiovascular: normal rate, regular rhythm, no gallop/murmur Respiratory/Chest: lungs clear, no respiratory distress, no accessory muscle use Abdomen: soft, hypoactive bowel sounds, tender Extremities: normal range of motion, non-tender, normal inspection, no calf tenderness, no swelling Intake and Output 05/16/19 05/17/19 19:00 07:00 Intake Total 1192.5 ml 1110 ml Output Total 770 ml 1050 ml Balance 422.5 ml 60 ml IV Total 1192.5 ml 1110 ml Output Urine Total 550 ml 1000 ml Other 220 ml 50 ml Laboratory Tests Test 05/17/19 04:55 White Blood Count 9.6 K/UL (4.8-10.8) Red Blood Count 3.31 M/UL (4.20-5.40) L Hemoglobin 10.4 G/DL (12.0-16.0) L Hematocrit 31.3 % (37.0-47.0) L Mean Corpuscular Volume 94 FL (80-99) Mean Corpuscular Hemoglobin 31.2 PG (27.0-31.0) H Mean Corpuscular Hemoglobin Concent 33.1 G/DL (32.0-36.0) Red Cell Distribution Width 11.4 % (11.6-14.8) L Platelet Count 339 K/UL (150-450) Mean Platelet Volume 5.3 FL (6.5-10.1) L Neutrophils (%) (Auto) % (45.0-75.0) Lymphocytes (%) (Auto) % (20.0-45.0) Monocytes (%) (Auto) % (1.0-10.0) Eosinophils (%) (Auto) % (0.0-3.0) Basophils (%) (Auto) % (0.0-2.0) Sodium Level 136 MMOL/L (136-145) Potassium Level 3.6 MMOL/L (3.5-5.1) Chloride Level 103 MMOL/L (98-107) Carbon Dioxide Level 23 MMOL/L (21-32) Anion Gap 10 mmol/L (5-15) Blood Urea Nitrogen 7 mg/dL (7-18) Creatinine 0.7 MG/DL (0.55-1.30) Estimat Glomerular Filtration Rate mL/min (>60) Glucose Level 158 MG/DL (74-106) H Calcium Level 8.2 MG/DL (8.5-10.1) L Phosphorus Level 1.4 MG/DL (2.5-4.9) L Magnesium Level 1.7 MG/DL (1.8-2.4) L Total Bilirubin 0.5 MG/DL (0.2-1.0) Aspartate Amino Transf (AST/SGOT) 19 U/L (15-37) Alanine Aminotransferase (ALT/SGPT) 15 U/L (12-78) Alkaline Phosphatase 56 U/L (46-116) Total Protein 6.0 G/DL (6.4-8.2) L Albumin 2.2 G/DL (3.4-5.0) L Globulin 3.8 g/dL Albumin/Globulin Ratio 0.6 (1.0-2.7) L Microbiology Date/Time Source Procedure Growth Status 05/15/19 11:45 Urine,Clean Catch Urine Culture - Preliminary Proteus Mirabilis Resulted Mau Gonzales MD May 17, 2019 16:06
[2019-05-17] MEDS ORDERED: NS Irrig 1000ml ONE (18:17)
[2019-05-17] MEDS ORDERED: Tubing IV Secondary IV ONE (18:21)
[2019-05-17] MEDS ORDERED: NS 275ml ONE (18:21)
[2019-05-17] MEDS: Nystatin Susp 500,000 units/5ml ORAL SCH (18:43)
[2019-05-17 20:00] VITALS: BP 138/86
[2019-05-17] MEDS: Dyna-Hex 2% Top Sol 2oz TOPIC SCH (20:24)
[2019-05-17] MEDS: Montelukast 10mg tablet ORAL SCH (20:24)
[2019-05-17] MEDS: Fat Emulsion Iv 20% 216 ML in Tpn 1,584 ML IV SCH (20:26)
[2019-05-18] VITALS: BP 128/70
[2019-05-18] MEDS: NovoLOG Insulin Flexpen SUBQ SCH ×4 (00:08→18:19)
[2019-05-18] MEDS: Albuterol ud Inhalation HHN SCH ×4 (01:00→19:45)
[2019-05-18 04:00] VITALS: BP 126/86
[2019-05-18] MEDS: Piperacillin/Tazobactam 3.375 GM in NS 110 ML IVPB SCH ×3 (05:39→22:56)
[2019-05-18 06:38] LABS: BASOPHILS % (AUTO) 0.9 % (0.0-2.0); EOSINOPHILS % (AUTO) 4.6 % (0.0-3.0); HEMOGLOBIN 10.8 G/DL (12.0-16.0); LYMPHOCYTES % (AUTO) 4.8 % (20.0-45.0); MEAN CORPUSCULAR VOLUME 95 FL (80-99); NEUTROPHILS % (AUTO) 84.5 % (45.0-75.0); PLATELET COUNT 374 K/UL (150-450); RED BLOOD COUNT 3.38 M/UL (4.20-5.40); RED CELL DISTRIBUTION WIDTH 11.1 % (11.6-14.8); WHITE BLOOD COUNT 8.8 K/UL (4.8-10.8)
[2019-05-18 07:07] LABS: ALANINE AMINOTRANSFERASE 19 U/L (12-78); ALBUMIN 2.2 G/DL (3.4-5.0); ALBUMIN/GLOBULIN RATIO 0.5 (1.0-2.7); ALKALINE PHOSPHATASE 62 U/L (46-116); ANION GAP 8 mmol/L (5-15); ASPARTATE AMINO TRANSFERASE 17 U/L (15-37); BILIRUBIN,TOTAL 0.5 MG/DL (0.2-1.0); BLOOD UREA NITROGEN 10 mg/dL (7-18); CALCIUM 8.5 MG/DL (8.5-10.1); CARBON DIOXIDE 27 MMOL/L (21-32); CHLORIDE 101 MMOL/L (98-107); CREATININE 0.7 MG/DL (0.55-1.30); PHOSPHORUS 2.6 MG/DL (2.5-4.9); SODIUM 136 MMOL/L (136-145)
[2019-05-18] MEDS: PCA shift volume MISC SCH (07:18)
[2019-05-18] MEDS ORDERED: Naloxone 0.4mg/ml Inj IVP PRN (07:42)
[2019-05-18] MEDS ORDERED: Rate Change PCA 1 Each MISC PRN (07:45)
[2019-05-18 08:00] VITALS: BP 152/81
[2019-05-18] MEDS ORDERED: PCA Morphine 1mg/ml 30 ML IV PRN (08:19)
--- NOTE | 2019-05-18 08:44 | General Progress Note ---
Progress Note Progress Note AVSS Not having pain not using BLENDER OPERATOR. Ambulates with assistance Abdomen mild soft distention, incision clean, retracted stoma stable All labs satisfactory except albumin 2.2 Urine 3300 Kock pouch ileo 490 Imp. slowly resolving ileus Plan: continue npo, TPN, continuous drainage of Kock Pouch d/c BLENDER OPERATOR Zachariah Farris MD May 18, 2019 08:44
[2019-05-18 08:51] LABS: APPEARANCE,URINE CLEAR; BILIRUBIN, URINE NEGATIVE (NEGATIVE); COLOR,URINE PALE YELLOW; GLUCOSE, URINE (UA) NEGATIVE (NEGATIVE); KETONES,URINE NEGATIVE (NEGATIVE); LEUKOCYTE ESTERASE ,URINE 1+ (NEGATIVE); NITRITE,URINE NEGATIVE (NEGATIVE); PH,URINE 6.5 (4.5-8.0); PROTEIN,URINE 2+ (NEGATIVE); UROBILINOGEN,URINE NORMAL MG/DL (0.0-1.0)
[2019-05-18] MEDS: Sertraline 100mg tab ORAL SCH (09:39)
[2019-05-18] MEDS: IRBESARTAN ORAL SCH (09:39)
[2019-05-18] MEDS: HCTZ ORAL SCH (09:39)
[2019-05-18] MEDS: Tolterodine 2mg tab ORAL SCH (09:39)
[2019-05-18] MEDS: guaiFENesin ER 600mg tab ORAL SCH ×2 (09:40→18:06)
[2019-05-18] MEDS: Nystatin Susp 500,000 units/5ml ORAL SCH ×3 (09:40→18:06)
[2019-05-18 12:00] VITALS: BP 155/95
[2019-05-18] MEDS: ALPRAZolam 0.5mg tab ORAL PRN ×2 (12:03→21:02)
[2019-05-18 16:00] VITALS: BP 148/87
[2019-05-18] MEDS ORDERED: PCA shift volume MISC SCH (19:00)
[2019-05-18 20:00] VITALS: BP 153/87
[2019-05-18] MEDS: Dyna-Hex 2% Top Sol 2oz TOPIC SCH (20:44)
[2019-05-18] MEDS: Fat Emulsion Iv 20% 216 ML in Tpn 1,584 ML IV SCH (20:44)
[2019-05-18] MEDS: Montelukast 10mg tablet ORAL SCH (20:44)
[2019-05-19] VITALS: BP 139/83
[2019-05-19] MEDS: NovoLOG Insulin Flexpen SUBQ SCH ×4 (00:06→17:37)
[2019-05-19] MEDS: Albuterol ud Inhalation HHN SCH ×4 (01:00→19:52)
[2019-05-19 04:00] VITALS: BP 145/89
[2019-05-19] MEDS: Piperacillin/Tazobactam 3.375 GM in NS 110 ML IVPB SCH ×3 (05:55→22:17)
[2019-05-19 06:41] LABS: EOSINOPHILS % (AUTO) 4.8 % (0.0-3.0); HEMATOCRIT 29.1 % (37.0-47.0); HEMOGLOBIN 9.8 G/DL (12.0-16.0); LYMPHOCYTES % (AUTO) 5.8 % (20.0-45.0); MEAN CORPUSCULAR VOLUME 93 FL (80-99); MONOCYTES % (AUTO) 5.9 % (1.0-10.0); NEUTROPHILS % (AUTO) 82.5 % (45.0-75.0); PLATELET COUNT 366 K/UL (150-450); RED BLOOD COUNT 3.11 M/UL (4.20-5.40)
[2019-05-19 07:10] LABS: ALANINE AMINOTRANSFERASE 19 U/L (12-78); ALBUMIN/GLOBULIN RATIO 0.5 (1.0-2.7); ALKALINE PHOSPHATASE 64 U/L (46-116); ANION GAP 10 mmol/L (5-15); ASPARTATE AMINO TRANSFERASE 20 U/L (15-37); BILIRUBIN,TOTAL 0.4 MG/DL (0.2-1.0); BLOOD UREA NITROGEN 12 mg/dL (7-18); CALCIUM 8.6 MG/DL (8.5-10.1); CARBON DIOXIDE 25 MMOL/L (21-32); CHLORIDE 99 MMOL/L (98-107); CREATININE 0.6 MG/DL (0.55-1.30); SODIUM 134 MMOL/L (136-145)
[2019-05-19 08:00] VITALS: BP 149/85
[2019-05-19] MEDS: IRBESARTAN ORAL SCH (08:53)
[2019-05-19] MEDS: Tolterodine 2mg tab ORAL SCH (08:53)
[2019-05-19] MEDS: HCTZ ORAL SCH (08:53)
[2019-05-19] MEDS: guaiFENesin ER 600mg tab ORAL SCH ×2 (08:54→17:36)
[2019-05-19] MEDS: Nystatin Susp 500,000 units/5ml ORAL SCH ×3 (08:54→17:36)
[2019-05-19] MEDS: Sertraline 100mg tab ORAL SCH (08:54)
[2019-05-19] MEDS ORDERED: Tubing IV Secondary IV ONE (09:22)
[2019-05-19] MEDS ORDERED: NS Irrig 1000ml ONE (09:22)
[2019-05-19] MEDS ORDERED: NS 500ML ONE (09:22)
[2019-05-19 12:00] VITALS: BP 154/89
--- NOTE | 2019-05-19 12:46 | General Progress Note ---
Progress Note Progress Note AVSS Not requiring any pain medication. Still with hoarse voice Abdomen soft, mild distention, healing nicely Urine 1675 Kock pouch ileo 565 Labs okay except K 3.0 Imp. slowly resolving ileus Plan; continue npo, TPN, Blunt KCL infusion f/u labs Zachariah Farris MD May 19, 2019 12:46
--- NOTE | 2019-05-19 13:18 | Cardiology Progress Note ---
Assessment/Plan Status Narrative 1. Ulcerative colitis 2. Malfunctioning Kock Pouch- s/p revision 3. HTN- controlled 4. Asthma- with exacerbation- on Resp Tx. 5. Abnormal EKG- normal LV function 6. DJD 7. Urinary Frequency 8. insomnia 9. Hallucinations- due to meds- improved 10. Hoarseness- R/O viral illness-vs worsening asthma, initially improved with Lozenges and inhalers 11. compromised stoma-s/p revision 12. Hyponatremia- improving 13. Hypokalemia- Assessment/Plan Mucinnex BID Albuterol by HHN QID DVT Px Out of bed- ambulate I/S Q1h O2 PRN- hopefully can stop tomorrow KCl 40 MEq IV PB Discussed with Dr. Farris, Patient, and with RN Subjective Cardiovascular: Reports: no symptoms Respiratory: Reports: other - hoarsness improved but not resolved Gastrointestinal/Abdominal: Denies: abdominal pain, vomiting Genitourinary: Reports: no symptoms Subjective 05/03/10- Patient admitted for revision of Kock poch. 05/04/19- s/p revision of Kick pouch 05/05- c/o abdominal pain with deep insp. 05/06 had increased abdominal pain, MS increased . 05/07- had a good day, ambulated 05/08- Had a bad nite due to hallucinations 05/09 pain improved 05/10- Ambulating, aguayo DC'd, tolerating clear liquids 05/11- c/o cough, loss of voice, denies F/.C 05/12 Cough resolved 05/14- c/o hoarsness of voice, planned for repeat surgery in AM. 05/15- Had resp Tx and CPT , breathing improved, awaiting surgery, NPO 05/16- sp re-op yesterday. CO abd pain, breathing better 05/17- on O2 NC, RA Sat 93%, no CP, c/o weakness 05/19- no pain, tolerating ice chips, Off O2, Sat OK, K 3.0 Objective Last 24 Hour Vital Signs Date Time Temp Pulse Resp B/P (MAP) Pulse Ox O2 Delivery O2 Flow Rate FiO2 05/19/19 12:00 97.6 84 16 154/89 (110) 95 05/19/19 10:01 81 20 99 Room Air 21 81 20 97 05/19/19 09:00 Room Air Room Air 9/27/19 08:54 91 149/85 05/19/19 08:00 99.0 91 16 149/85 (106) 93 05/19/19 04:00 98.0 85 18 145/89 (107) 96 05/19/19 00:00 98.0 84 18 139/83 (101) 95 05/18/19 21:00 Nasal Cannula 2.0 Room Air 05/18/19 20:00 98.2 87 18 153/87 (109) 100 05/18/19 19:45 85 18 99 Room Air 21 93 18 98 05/18/19 16:00 97.3 98 18 148/87 (107) 94 05/18/19 13:50 98 18 99 Room Air 21 93 18 98 General Appearance: no apparent distress, alert Neck: supple Cardiovascular: normal rate, regular rhythm, no gallop/murmur Respiratory/Chest: lungs clear Abdomen: non tender, soft, no organomegaly, no mass, hypoactive bowel sounds Extremities: non-tender, no calf tenderness, no swelling Intake and Output 05/18/19 05/19/19 19:00 07:00 Intake Total 1185.0 ml Output Total 1295 ml 1025 ml Balance -1295 ml 160.0 ml IV Total 1185.0 ml Output Urine Total 900 ml 775 ml Other 395 ml 250 ml Laboratory Tests Test 05/19/19 05:00 White Blood Count 7.0 K/UL (4.8-10.8) Red Blood Count 3.11 M/UL (4.20-5.40) L Hemoglobin 9.8 G/DL (12.0-16.0) L Hematocrit 29.1 % (37.0-47.0) L Mean Corpuscular Volume 93 FL (80-99) Mean Corpuscular Hemoglobin 31.5 PG (27.0-31.0) H Mean Corpuscular Hemoglobin Concent 33.7 G/DL (32.0-36.0) Red Cell Distribution Width 11.0 % (11.6-14.8) L Platelet Count 366 K/UL (150-450) Mean Platelet Volume 5.4 FL (6.5-10.1) L Neutrophils (%) (Auto) 82.5 % (45.0-75.0) H Lymphocytes (%) (Auto) 5.8 % (20.0-45.0) L Monocytes (%) (Auto) 5.9 % (1.0-10.0) Eosinophils (%) (Auto) 4.8 % (0.0-3.0) H Basophils (%) (Auto) 1.0 % (0.0-2.0) Sodium Level 134 MMOL/L (136-145) L Potassium Level 3.0 MMOL/L (3.5-5.1) L Chloride Level 99 MMOL/L (98-107) Carbon Dioxide Level 25 MMOL/L (21-32) Anion Gap 10 mmol/L (5-15) Blood Urea Nitrogen 12 mg/dL (7-18) Creatinine 0.6 MG/DL (0.55-1.30) Estimat Glomerular Filtration Rate mL/min (>60) Glucose Level 131 MG/DL (74-106) H Calcium Level 8.6 MG/DL (8.5-10.1) Total Bilirubin 0.4 MG/DL (0.2-1.0) Aspartate Amino Transf (AST/SGOT) 20 U/L (15-37) Alanine Aminotransferase (ALT/SGPT) 19 U/L (12-78) Alkaline Phosphatase 64 U/L (46-116) Total Protein 6.2 G/DL (6.4-8.2) L Albumin 2.0 G/DL (3.4-5.0) L Globulin 4.2 g/dL Albumin/Globulin Ratio 0.5 (1.0-2.7) L Microbiology Date/Time Source Procedure Growth Status 05/18/19 07:55 Indwelling Cath Urine Culture - Preliminary NO GROWTH Resulted Mau Gonzales MD May 19, 2019 13:18
[2019-05-19 16:00] VITALS: BP 138/85
[2019-05-19 20:30] VITALS: BP 153/90
[2019-05-19] MEDS: Montelukast 10mg tablet ORAL SCH (20:36)
[2019-05-19] MEDS: Dyna-Hex 2% Top Sol 2oz TOPIC SCH (20:37)
[2019-05-19] MEDS: ALPRAZolam 0.5mg tab ORAL PRN (20:37)
[2019-05-19] MEDS: Fat Emulsion Iv 20% 216 ML in Tpn 1,584 ML IV SCH (20:41)
[2019-05-20 00:15] VITALS: BP 135/93
[2019-05-20] MEDS: NovoLOG Insulin Flexpen SUBQ SCH ×5 (00:26→23:36)
[2019-05-20] MEDS: Albuterol ud Inhalation HHN SCH ×4 (00:52→19:55)
[2019-05-20 04:00] VITALS: BP 148/88
[2019-05-20] MEDS: Piperacillin/Tazobactam 3.375 GM in NS 110 ML IVPB SCH ×3 (05:49→21:40)
[2019-05-20 06:03] LABS: BASOPHILS % (AUTO) 1.9 % (0.0-2.0); EOSINOPHILS % (AUTO) 8.2 % (0.0-3.0); HEMATOCRIT 30.6 % (37.0-47.0); HEMOGLOBIN 10.2 G/DL (12.0-16.0); LYMPHOCYTES % (AUTO) 4.7 % (20.0-45.0); MEAN CORPUSCULAR VOLUME 93 FL (80-99); MONOCYTES % (AUTO) 6.4 % (1.0-10.0); NEUTROPHILS % (AUTO) 78.7 % (45.0-75.0); PLATELET COUNT 379 K/UL (150-450); WHITE BLOOD COUNT 6.1 K/UL (4.8-10.8)
[2019-05-20 06:09] LABS: ALANINE AMINOTRANSFERASE 23 U/L (12-78); ALBUMIN 2.1 G/DL (3.4-5.0); ALBUMIN/GLOBULIN RATIO 0.5 (1.0-2.7); ALKALINE PHOSPHATASE 67 U/L (46-116); ANION GAP 9 mmol/L (5-15); ASPARTATE AMINO TRANSFERASE 20 U/L (15-37); BILIRUBIN,TOTAL 0.3 MG/DL (0.2-1.0); BLOOD UREA NITROGEN 12 mg/dL (7-18); CALCIUM 8.9 MG/DL (8.5-10.1); CARBON DIOXIDE 26 MMOL/L (21-32); CHLORIDE 102 MMOL/L (98-107); CREATININE 0.6 MG/DL (0.55-1.30); PHOSPHORUS 3.3 MG/DL (2.5-4.9); POTASSIUM 3.5 MMOL/L (3.5-5.1); SODIUM 137 MMOL/L (136-145)
[2019-05-20 08:00] VITALS: BP 153/88
[2019-05-20] MEDS: Nystatin Susp 500,000 units/5ml ORAL SCH ×3 (08:55→17:44)
[2019-05-20] MEDS: guaiFENesin ER 600mg tab ORAL SCH ×2 (08:55→17:44)
[2019-05-20] MEDS: Tolterodine 2mg tab ORAL SCH (08:55)
[2019-05-20] MEDS: IRBESARTAN ORAL SCH (08:55)
[2019-05-20] MEDS: HCTZ ORAL SCH (08:55)
[2019-05-20] MEDS: Sertraline 100mg tab ORAL SCH (08:55)
--- NOTE | 2019-05-20 09:05 | General Progress Note ---
Progress Note Progress Note AVSS Ambulates well. Hoarseness is improved Abdomen soft, non-distended, healing nicely Peristomal tissues improved Urine 2720 Kock pouch ileo 510 WBC 6100 Hgb 10.2 Mg 1.7 albumin 2.1 Urine C&S 05/18 - no growth (prior C&S E.coli Esbl and Proteus) - on Zosyn Imp: Resolving ileus Plan: d/c urinary Blunt limited clear liquids today (max 1000cc) continue TPN and continuous drainage of Kock Pouch Mg infusion Zachariah Farris MD May 20, 2019 09:05
[2019-05-20 11:28] VITALS: BP 148/86
[2019-05-20] MEDS ORDERED: Albuterol ud Inhalation HHN PRN (14:16)
[2019-05-20] MEDS ORDERED: NS Irrig 1000ml ONE (14:38)
[2019-05-20] MEDS ORDERED: NS 500ML ONE (14:38)
--- NOTE | 2019-05-20 15:33 | Cardiology Progress Note ---
Assessment/Plan Status Narrative 1. Ulcerative colitis 2. Malfunctioning Kock Pouch- s/p revision 3. HTN- with adequate control, probably has poor absorption 4. Asthma- with exacerbation- on Resp Tx. 5. Abnormal EKG- normal LV function 6. DJD 7. Urinary Frequency 8. insomnia 9. Hallucinations- due to meds- improved 10. Hoarseness- R/O viral illness-vs worsening asthma, initially improved with Lozenges and inhalers 11. compromised stoma-s/p revision 12. Hyponatremia- improving 13. Hypokalemia-improved Assessment/Plan Mucinnex BID Albuterol by HHN QID DVT Px Out of bed- ambulate I/S Q1h O2 DC'd Discussed with Patient, and with RN Subjective Cardiovascular: Reports: no symptoms Respiratory: Reports: no symptoms Gastrointestinal/Abdominal: Reports: no symptoms; Denies: abdominal pain, vomiting Genitourinary: Reports: no symptoms Subjective 05/03/10- Patient admitted for revision of Kock poch. 05/04/19- s/p revision of Kick pouch 05/05- c/o abdominal pain with deep insp. 05/06 had increased abdominal pain, MS increased . 05/07- had a good day, ambulated 05/08- Had a bad nite due to hallucinations 05/09 pain improved 05/10- Ambulating, aguayo DC'd, tolerating clear liquids 05/11- c/o cough, loss of voice, denies F/.C 05/12 Cough resolved 05/14- c/o hoarsness of voice, planned for repeat surgery in AM. 05/15- Had resp Tx and CPT , breathing improved, awaiting surgery, NPO 05/16- sp re-op yesterday. CO abd pain, breathing better 05/17- on O2 NC, RA Sat 93%, no CP, c/o weakness 05/19- no pain, tolerating ice chips, Off O2, Sat OK, K 3.0 05/20- started on clear liquids, Voice improving, ambulated, off O2. Objective Last 24 Hour Vital Signs Date Time Temp Pulse Resp B/P (MAP) Pulse Ox O2 Delivery O2 Flow Rate FiO2 05/20/19 13:07 81 18 99 Room Air 21 86 18 98 05/20/19 11:28 97.7 84 18 148/86 (106) 93 84 05/20/19 09:00 Room Air Room Air 05/20/19 08:55 92 153/88 05/20/19 08:00 97.1 92 18 153/88 (109) 93 05/20/19 07:35 79 18 99 Room Air 21 78 18 98 05/20/19 04:00 98.2 82 18 148/88 (108) 96 05/20/19 00:15 98.3 76 18 135/93 (107) 95 76 05/19/19 21:00 Room Air Room Air 05/19/19 20:30 97.9 89 20 153/90 (111) 95 05/19/19 19:52 85 18 99 Room Air 21 83 18 98 05/19/19 16:00 98.5 91 20 138/85 (102) 97 General Appearance: no apparent distress, alert Neck: supple Cardiovascular: normal rate, regular rhythm, no gallop/murmur Respiratory/Chest: lungs clear Abdomen: normal bowel sounds, non tender Extremities: non-tender, normal inspection, no calf tenderness, no swelling Intake and Output 05/19/19 05/20/19 18:59 06:59 Intake Total 1287.5 ml 1155 ml Output Total 1910 ml 1320 ml Balance -622.5 ml -165 ml IV Total 1287.5 ml 1155 ml Output Urine Total 1620 ml 1100 ml Other 290 ml 220 ml Laboratory Tests Test 05/20/19 05:15 White Blood Count 6.1 K/UL (4.8-10.8) Red Blood Count 3.30 M/UL (4.20-5.40) L Hemoglobin 10.2 G/DL (12.0-16.0) L Hematocrit 30.6 % (37.0-47.0) L Mean Corpuscular Volume 93 FL (80-99) Mean Corpuscular Hemoglobin 31.0 PG (27.0-31.0) Mean Corpuscular Hemoglobin Concent 33.5 G/DL (32.0-36.0) Red Cell Distribution Width 11.0 % (11.6-14.8) L Platelet Count 379 K/UL (150-450) Mean Platelet Volume 5.2 FL (6.5-10.1) L Neutrophils (%) (Auto) 78.7 % (45.0-75.0) H Lymphocytes (%) (Auto) 4.7 % (20.0-45.0) L Monocytes (%) (Auto) 6.4 % (1.0-10.0) Eosinophils (%) (Auto) 8.2 % (0.0-3.0) H Basophils (%) (Auto) 1.9 % (0.0-2.0) Sodium Level 137 MMOL/L (136-145) Potassium Level 3.5 MMOL/L (3.5-5.1) Chloride Level 102 MMOL/L (98-107) Carbon Dioxide Level 26 MMOL/L (21-32) Anion Gap 9 mmol/L (5-15) Blood Urea Nitrogen 12 mg/dL (7-18) Creatinine 0.6 MG/DL (0.55-1.30) Estimat Glomerular Filtration Rate mL/min (>60) Glucose Level 123 MG/DL (74-106) H Calcium Level 8.9 MG/DL (8.5-10.1) Phosphorus Level 3.3 MG/DL (2.5-4.9) Magnesium Level 1.7 MG/DL (1.8-2.4) L Total Bilirubin 0.3 MG/DL (0.2-1.0) Aspartate Amino Transf (AST/SGOT) 20 U/L (15-37) Alanine Aminotransferase (ALT/SGPT) 23 U/L (12-78) Alkaline Phosphatase 67 U/L (46-116) Total Protein 6.3 G/DL (6.4-8.2) L Albumin 2.1 G/DL (3.4-5.0) L Globulin 4.2 g/dL Albumin/Globulin Ratio 0.5 (1.0-2.7) L Microbiology Date/Time Source Procedure Growth Status 05/18/19 07:55 [address] Cath Urine Culture - Final NO GROWTH AFTER 48 HOURS Complete Mau Gonzales MD May 20, 2019 15:33
[2019-05-20 16:00] VITALS: BP 141/82
[2019-05-20 20:00] VITALS: BP 136/89
[2019-05-20] MEDS: Dyna-Hex 2% Top Sol 2oz TOPIC SCH (20:18)
[2019-05-20] MEDS: Montelukast 10mg tablet ORAL SCH (20:18)
[2019-05-20] MEDS: ALPRAZolam 0.5mg tab ORAL PRN (20:18)
[2019-05-20] MEDS: Fat Emulsion Iv 20% 216 ML in Tpn 1,584 ML IV SCH (20:21)
[2019-05-21] VITALS: BP 143/85
[2019-05-21] MEDS: Albuterol ud Inhalation HHN SCH ×5 (01:00→23:09)
[2019-05-21 04:50] VITALS: BP 136/81
[2019-05-21] MEDS: Piperacillin/Tazobactam 3.375 GM in NS 110 ML IVPB SCH (05:42)
[2019-05-21] MEDS: NovoLOG Insulin Flexpen SUBQ SCH ×4 (05:44→23:48)
[2019-05-21 06:02] LABS: BASOPHILS % (AUTO) 1.8 % (0.0-2.0); EOSINOPHILS % (AUTO) 7.8 % (0.0-3.0); HEMATOCRIT 30.1 % (37.0-47.0); HEMOGLOBIN 10.2 G/DL (12.0-16.0); LYMPHOCYTES % (AUTO) 6.4 % (20.0-45.0); MEAN CORPUSCULAR VOLUME 92 FL (80-99); MONOCYTES % (AUTO) 7.1 % (1.0-10.0); PLATELET COUNT 357 K/UL (150-450); RED BLOOD COUNT 3.26 M/UL (4.20-5.40); RED CELL DISTRIBUTION WIDTH 10.9 % (11.6-14.8); WHITE BLOOD COUNT 5.3 K/UL (4.8-10.8)
[2019-05-21 06:09] LABS: ANION GAP 9 mmol/L (5-15); BLOOD UREA NITROGEN 12 mg/dL (7-18); CALCIUM 8.6 MG/DL (8.5-10.1); CARBON DIOXIDE 26 MMOL/L (21-32); CHLORIDE 103 MMOL/L (98-107); CREATININE 0.7 MG/DL (0.55-1.30); POTASSIUM 3.8 MMOL/L (3.5-5.1); SODIUM 138 MMOL/L (136-145)
[2019-05-21 08:00] VITALS: BP 123/88
[2019-05-21] MEDS: HCTZ ORAL SCH (09:00)
[2019-05-21] MEDS: IRBESARTAN ORAL SCH (09:00)
[2019-05-21] MEDS: Nystatin Susp 500,000 units/5ml ORAL SCH ×3 (09:07→17:48)
[2019-05-21] MEDS: guaiFENesin ER 600mg tab ORAL SCH ×2 (09:07→17:48)
[2019-05-21] MEDS: Tolterodine 2mg tab ORAL SCH (09:07)
[2019-05-21] MEDS: Sertraline 100mg tab ORAL SCH (09:07)
--- NOTE | 2019-05-21 09:25 | General Progress Note ---
Progress Note Progress Note AVSS Tolerated limited clear liquids po Abdomen soft, healing nicely Urine 2120 Kock pouch 1065 po 1000 Mg 2.0 Imp. Improved Plan; clear liquid diet ad tucker continue TPN but d/c IV fluids Maintain continuous drainage of Kock pouch continent ileostomy Zachariah Farris MD May 21, 2019 09:25
[2019-05-21 12:00] VITALS: BP 157/91
--- NOTE | 2019-05-21 14:24 | Cardiology Progress Note ---
Assessment/Plan Status Narrative 1. Ulcerative colitis 2. Malfunctioning Kock Pouch- s/p revision 3. HTN- with adequate control, probably has poor absorption 4. Asthma- with exacerbation- on Resp Tx. 5. Abnormal EKG- normal LV function 6. DJD 7. Urinary Frequency 8. insomnia 9. Hallucinations- due to meds- improved 10. Hoarseness- R/O viral illness-vs worsening asthma, initially improved with Lozenges and inhalers 11. compromised stoma-s/p revision 12. Hyponatremia- improving 13. Hypokalemia-improved Assessment/Plan Mucinnex BID Albuterol by HHN QID DVT Px ENT eval as per Dr. Farris Out of bed- ambulate I/S Q1h O2 DC'd Discussed with Patient, and with RN Subjective Cardiovascular: Reports: no symptoms Respiratory: Reports: no symptoms Gastrointestinal/Abdominal: Reports: no symptoms Genitourinary: Reports: no symptoms Subjective 05/03/10- Patient admitted for revision of Kock poch. 05/04/19- s/p revision of Kick pouch 05/05- c/o abdominal pain with deep insp. 05/06 had increased abdominal pain, MS increased . 05/07- had a good day, ambulated 05/08- Had a bad nite due to hallucinations 05/09 pain improved 05/10- Ambulating, aguayo DC'd, tolerating clear liquids 05/11- c/o cough, loss of voice, denies F/.C 05/12 Cough resolved 05/14- c/o hoarsness of voice, planned for repeat surgery in AM. 05/15- Had resp Tx and CPT , breathing improved, awaiting surgery, NPO 05/16- sp re-op yesterday. CO abd pain, breathing better 05/17- on O2 NC, RA Sat 93%, no CP, c/o weakness 05/19- no pain, tolerating ice chips, Off O2, Sat OK, K 3.0 05/20- started on clear liquids, Voice improving, ambulated, off O2. 05/21- still c/o hoarseness, fluid intake increased, ambulating Objective Last 24 Hour Vital Signs Date Time Temp Pulse Resp B/P (MAP) Pulse Ox O2 Delivery O2 Flow Rate FiO2 05/21/19 13:03 84 20 99 Room Air 21 87 19 99 05/21/19 12:00 98.5 87 18 157/91 (113) 99 05/21/19 09:07 95 123/88 05/21/19 09:00 Room Air Room Air 05/21/19 08:00 98.0 95 19 123/88 (100) 96 05/21/19 07:25 86 19 99 Room Air 21 85 17 98 05/21/19 04:50 97.6 74 18 136/81 (99) 94 05/21/19 00:00 98.8 82 18 143/85 (104) 95 82 05/20/19 21:00 Room Air Room Air 05/20/19 20:00 98.6 91 18 136/89 (105) 95 91 05/20/19 19:57 89 18 99 Room Air 21 87 18 95 05/20/19 19:56 87 18 95 Room Air 21 05/20/19 16:00 97.4 79 18 141/82 (101) 96 General Appearance: no apparent distress, alert Cardiovascular: normal rate, regular rhythm, no gallop/murmur Respiratory/Chest: lungs clear, normal breath sounds, no respiratory distress Abdomen: non tender, soft, no organomegaly, hypoactive bowel sounds Extremities: non-tender, normal inspection, no swelling Intake and Output 05/20/19 05/21/19 19:00 07:00 Intake Total 2415.0 ml 1290 ml Output Total 2045 ml 1140 ml Balance 370.0 ml 150 ml Intake Oral 950 ml 30 ml IV Total 1465.0 ml 1260 ml Output Urine Total 1400 ml 720 ml Other 645 ml 420 ml Laboratory Tests Test 05/21/19 05:25 White Blood Count 5.3 K/UL (4.8-10.8) Red Blood Count 3.26 M/UL (4.20-5.40) L Hemoglobin 10.2 G/DL (12.0-16.0) L Hematocrit 30.1 % (37.0-47.0) L Mean Corpuscular Volume 92 FL (80-99) Mean Corpuscular Hemoglobin 31.3 PG (27.0-31.0) H Mean Corpuscular Hemoglobin Concent 33.9 G/DL (32.0-36.0) Red Cell Distribution Width 10.9 % (11.6-14.8) L Platelet Count 357 K/UL (150-450) Mean Platelet Volume 5.1 FL (6.5-10.1) L Neutrophils (%) (Auto) 77.0 % (45.0-75.0) H Lymphocytes (%) (Auto) 6.4 % (20.0-45.0) L Monocytes (%) (Auto) 7.1 % (1.0-10.0) Eosinophils (%) (Auto) 7.8 % (0.0-3.0) H Basophils (%) (Auto) 1.8 % (0.0-2.0) Sodium Level 138 MMOL/L (136-145) Potassium Level 3.8 MMOL/L (3.5-5.1) Chloride Level 103 MMOL/L (98-107) Carbon Dioxide Level 26 MMOL/L (21-32) Anion Gap 9 mmol/L (5-15) Blood Urea Nitrogen 12 mg/dL (7-18) Creatinine 0.7 MG/DL (0.55-1.30) Estimat Glomerular Filtration Rate mL/min (>60) Glucose Level 130 MG/DL (74-106) H Calcium Level 8.6 MG/DL (8.5-10.1) Magnesium Level 2.0 MG/DL (1.8-2.4) Mau Gonzales MD May 21, 2019 14:24
[2019-05-21] MEDS ORDERED: NS Irrig 1000ml ONE (15:36)
[2019-05-21] MEDS ORDERED: Tubing IV Secondary IV ONE (15:36)
[2019-05-21 16:00] VITALS: BP 150/89
[2019-05-21 20:00] VITALS: BP 155/89
[2019-05-21] MEDS: Dyna-Hex 2% Top Sol 2oz TOPIC SCH (20:00)
[2019-05-21] MEDS: Montelukast 10mg tablet ORAL SCH (20:01)
[2019-05-21] MEDS: Fat Emulsion Iv 20% 216 ML in Tpn 1,584 ML IV SCH (20:01)
[2019-05-21] MEDS: ALPRAZolam 0.5mg tab ORAL PRN (20:14)
[2019-05-22] VITALS: BP 136/72
[2019-05-22 04:00] VITALS: BP 136/75
[2019-05-22] MEDS: NovoLOG Insulin Flexpen SUBQ SCH ×4 (05:33→23:55)
[2019-05-22 06:39] LABS: BASOPHILS % (AUTO) 1.7 % (0.0-2.0); EOSINOPHILS % (AUTO) 5.8 % (0.0-3.0); HEMATOCRIT 29.7 % (37.0-47.0); HEMOGLOBIN 9.9 G/DL (12.0-16.0); LYMPHOCYTES % (AUTO) 5.8 % (20.0-45.0); MEAN CORPUSCULAR VOLUME 93 FL (80-99); MONOCYTES % (AUTO) 9.3 % (1.0-10.0); NEUTROPHILS % (AUTO) 77.4 % (45.0-75.0); PLATELET COUNT 350 K/UL (150-450); WHITE BLOOD COUNT 5.2 K/UL (4.8-10.8)
[2019-05-22 06:40] LABS: ANION GAP 9 mmol/L (5-15); BLOOD UREA NITROGEN 14 mg/dL (7-18); CALCIUM 8.9 MG/DL (8.5-10.1); CARBON DIOXIDE 26 MMOL/L (21-32); CHLORIDE 104 MMOL/L (98-107); CREATININE 0.7 MG/DL (0.55-1.30); POTASSIUM 3.5 MMOL/L (3.5-5.1); SODIUM 138 MMOL/L (136-145)
[2019-05-22 07:07] LABS: IRON 46 ug/dL (50-175)
[2019-05-22] MEDS: Albuterol ud Inhalation HHN SCH ×3 (07:48→19:56)
[2019-05-22 08:00] VITALS: BP 145/88
[2019-05-22] MEDS: Nystatin Susp 500,000 units/5ml ORAL SCH ×3 (08:48→18:14)
[2019-05-22] MEDS: Tolterodine 2mg tab ORAL SCH (08:48)
[2019-05-22] MEDS: guaiFENesin ER 600mg tab ORAL SCH ×2 (08:48→18:14)
[2019-05-22] MEDS: IRBESARTAN ORAL SCH (08:49)
[2019-05-22] MEDS: Sertraline 100mg tab ORAL SCH (08:49)
[2019-05-22] MEDS: HCTZ ORAL SCH (08:49)
--- NOTE | 2019-05-22 09:30 | General Progress Note ---
Progress Note Progress Note AVSS Has done well with clear liquids Abdomen soft, incision clean Kock pouch catheter removed - stoma is 3cm below skin, circumferentially well formed, with slowly granulating tract. 28 Blunt readily reinserted. Tried large and small stents - will work well once skin opening narrows Urine 2300 Kock pouch 1140 WBC 5200 Hgb 9.9 Iron 46 Imp: Improved Plan: BCIR low residue diet continue TPN maintain continuous drainage of Kock Pouch Will start RN supervised self-intubations in AM Zachariah Farris MD May 22, 2019 09:30
[2019-05-22] MEDS ORDERED: Iron Sucrose 200 MG in NS 110 ML IV SCH (11:00)
[2019-05-22 12:00] VITALS: BP 126/74
[2019-05-22 16:00] VITALS: BP 128/74
--- NOTE | 2019-05-22 17:43 | Cardiology Progress Note ---
Assessment/Plan Status Narrative 1. Ulcerative colitis 2. Malfunctioning Kock Pouch- s/p revision 3. HTN- with adequate control, probably has poor absorption 4. Asthma- with exacerbation- on Resp Tx. 5. Abnormal EKG- normal LV function 6. DJD 7. Urinary Frequency 8. insomnia 9. Hallucinations- due to meds- improved 10. Hoarseness- , initially improved with Lozenges and inhalers- r/o vocal cord injury 11. compromised stoma-s/p revision 12. Hyponatremia- improved 13. Hypokalemia-improved Assessment/Plan Mucinnex BID Albuterol by HHN QID DVT Px ENT eval as per Dr. Farris Out of bed- ambulate I/S Q1h O2 DC'd Discussed with Patient, and with RN Subjective Cardiovascular: Reports: no symptoms Respiratory: Reports: other - voice not back to normal Gastrointestinal/Abdominal: Reports: no symptoms; Denies: abdominal pain, blood in stool, vomiting Genitourinary: Reports: no symptoms Subjective 05/03/10- Patient admitted for revision of Kock poch. 05/04/19- s/p revision of Kick pouch 05/05- c/o abdominal pain with deep insp. 05/06 had increased abdominal pain, MS increased . 05/07- had a good day, ambulated 05/08- Had a bad nite due to hallucinations 05/09 pain improved 05/10- Ambulating, aguayo DC'd, tolerating clear liquids 05/11- c/o cough, loss of voice, denies F/.C 05/12 Cough resolved 05/14- c/o hoarsness of voice, planned for repeat surgery in AM. 05/15- Had resp Tx and CPT , breathing improved, awaiting surgery, NPO 05/16- sp re-op yesterday. CO abd pain, breathing better 05/17- on O2 NC, RA Sat 93%, no CP, c/o weakness 05/19- no pain, tolerating ice chips, Off O2, Sat OK, K 3.0 05/20- started on clear liquids, Voice improving, ambulated, off O2. 05/21- still c/o hoarseness, fluid intake increased, ambulating 05/22 Started solid food today, tolerating well, no N/V Objective Last 24 Hour Vital Signs Date Time Temp Pulse Resp B/P (MAP) Pulse Ox O2 Delivery O2 Flow Rate FiO2 05/22/19 13:11 81 18 99 Room Air 21 78 18 96 05/22/19 12:00 97.8 78 18 126/74 (91) 05/22/19 09:00 Room Air Room Air 05/22/19 08:48 88 145/84 05/22/19 08:00 97.5 88 16 145/88 (107) 96 05/22/19 04:00 98.3 84 18 136/75 (95) 96 05/22/19 00:00 97.4 83 15 136/72 (93) 98 05/21/19 21:00 Room Air Room Air 05/21/19 20:00 98.7 88 16 155/89 (111) 98 05/21/19 19:37 79 18 99 Room Air 21 84 18 97 General Appearance: no apparent distress, alert Cardiovascular: normal rate, regular rhythm, no gallop/murmur Respiratory/Chest: lungs clear, other - voice hoarse Abdomen: non tender, soft, hypoactive bowel sounds Extremities: non-tender, no calf tenderness, no swelling Intake and Output 05/21/19 05/22/19 19:00 07:00 Intake Total 2370 ml 1230 ml Output Total 2070 ml 1570 ml Balance 300 ml -340 ml Intake Oral 1300 ml 480 ml IV Total 1070 ml 750 ml Output Urine Total 1100 ml 1200 ml Other 970 ml 370 ml # Voids 3 Laboratory Tests Test 05/22/19 05:15 White Blood Count 5.2 K/UL (4.8-10.8) Red Blood Count 3.20 M/UL (4.20-5.40) L Hemoglobin 9.9 G/DL (12.0-16.0) L Hematocrit 29.7 % (37.0-47.0) L Mean Corpuscular Volume 93 FL (80-99) Mean Corpuscular Hemoglobin 31.1 PG (27.0-31.0) H Mean Corpuscular Hemoglobin Concent 33.5 G/DL (32.0-36.0) Red Cell Distribution Width 11.0 % (11.6-14.8) L Platelet Count 350 K/UL (150-450) Mean Platelet Volume 5.3 FL (6.5-10.1) L Neutrophils (%) (Auto) 77.4 % (45.0-75.0) H Lymphocytes (%) (Auto) 5.8 % (20.0-45.0) L Monocytes (%) (Auto) 9.3 % (1.0-10.0) Eosinophils (%) (Auto) 5.8 % (0.0-3.0) H Basophils (%) (Auto) 1.7 % (0.0-2.0) Sodium Level 138 MMOL/L (136-145) Potassium Level 3.5 MMOL/L (3.5-5.1) Chloride Level 104 MMOL/L (98-107) Carbon Dioxide Level 26 MMOL/L (21-32) Anion Gap 9 mmol/L (5-15) Blood Urea Nitrogen 14 mg/dL (7-18) Creatinine 0.7 MG/DL (0.55-1.30) Estimat Glomerular Filtration Rate mL/min (>60) Glucose Level 117 MG/DL (74-106) H Calcium Level 8.9 MG/DL (8.5-10.1) Iron Level 46 ug/dL (50-175) L Mau Gonzales MD May 22, 2019 17:43
[2019-05-22 20:00] VITALS: BP 128/71
[2019-05-22] MEDS: Dyna-Hex 2% Top Sol 2oz TOPIC SCH (20:08)
[2019-05-22] MEDS: Montelukast 10mg tablet ORAL SCH (20:15)
[2019-05-22] MEDS: Fat Emulsion Iv 20% 216 ML in Tpn 1,584 ML IV SCH (20:18)
[2019-05-22] MEDS: ALPRAZolam 0.5mg tab ORAL PRN (22:32)
[2019-05-23] VITALS: BP 136/73
[2019-05-23] MEDS: Albuterol ud Inhalation HHN SCH ×4 (01:00→19:32)
[2019-05-23 04:00] VITALS: BP 141/82
[2019-05-23 05:34] LABS: ANION GAP 5 mmol/L (5-15); BLOOD UREA NITROGEN 15 mg/dL (7-18); CARBON DIOXIDE 29 MMOL/L (21-32); CHLORIDE 104 MMOL/L (98-107); CREATININE 0.7 MG/DL (0.55-1.30); POTASSIUM 4.1 MMOL/L (3.5-5.1); SODIUM 138 MMOL/L (136-145)
[2019-05-23 05:37] LABS: BASOPHILS % (AUTO) 1.1 % (0.0-2.0); EOSINOPHILS % (AUTO) 4.6 % (0.0-3.0); HEMATOCRIT 32.1 % (37.0-47.0); HEMOGLOBIN 10.8 G/DL (12.0-16.0); LYMPHOCYTES % (AUTO) 5.9 % (20.0-45.0); MEAN CORPUSCULAR VOLUME 94 FL (80-99); MONOCYTES % (AUTO) 7.8 % (1.0-10.0); NEUTROPHILS % (AUTO) 80.6 % (45.0-75.0); PLATELET COUNT 349 K/UL (150-450); RED BLOOD COUNT 3.43 M/UL (4.20-5.40); RED CELL DISTRIBUTION WIDTH 11.1 % (11.6-14.8); WHITE BLOOD COUNT 5.8 K/UL (4.8-10.8)
[2019-05-23] MEDS: NovoLOG Insulin Flexpen SUBQ SCH ×3 (06:29→17:20)
[2019-05-23 08:00] VITALS: BP 127/77
[2019-05-23] MEDS: Sertraline 100mg tab ORAL SCH (08:24)
[2019-05-23] MEDS: Tolterodine 2mg tab ORAL SCH (08:24)
[2019-05-23] MEDS: Nystatin Susp 500,000 units/5ml ORAL SCH ×3 (08:24→18:01)
[2019-05-23] MEDS: HCTZ ORAL SCH (08:24)
[2019-05-23] MEDS: guaiFENesin ER 600mg tab ORAL SCH ×2 (08:24→18:01)
[2019-05-23] MEDS: IRBESARTAN ORAL SCH (08:24)
--- NOTE | 2019-05-23 08:55 | General Progress Note ---
Progress Note Progress Note AVSS Eating BCIR diet 50% Abdomen soft. Sara removed and steristrips applied Kock pouch stoma with retracted stoma - able to insert drainage catheter by RNs readily Urine 3350 Kock pouch ileo 1295 Hgb 10.8 Imp. Improved with stable retracted Kock pouch stoma Plan: RN supervised Kock pouch self-intubations Taper and d/c TPN Venofer 200mg IV tonight (total during hospital stay 900mg infused) Discussed/demonstrated use of small and large stents again Anticipate discharge tomorrow Zachariah Farris MD May 23, 2019 08:55
[2019-05-23] MEDS ORDERED: Iron Sucrose 200 MG in NS 110 ML IV SCH (09:30)
[2019-05-23 11:50] VITALS: BP 129/80
--- NOTE | 2019-05-23 13:31 | Cardiology Progress Note ---
Assessment/Plan Status Narrative 1. Ulcerative colitis 2. Malfunctioning Kock Pouch- s/p revision 3. HTN- with adequate control, 4. Asthma- with exacerbation- on Resp Tx. 5. Abnormal EKG- normal LV function 6. DJD 7. Urinary Frequency 8. insomnia 9. Hallucinations- due to meds- improved 10. Hoarseness- , initially improved with Lozenges and inhalers- r/o vocal cord injury 11. compromised stoma-s/p revision 12. Hyponatremia- improved 13. Hypokalemia-improved Assessment/Plan Mucinnex BID Albuterol by SHYAMN QID DVT Px ENT eval asout patient Out of bed- ambulate I/S Q1h O2 DC'd Plan DC home in AM Continue same BP meds. Discussed with Patient, and with RN Subjective Cardiovascular: Reports: no symptoms Respiratory: Reports: other - hoarseness ; Denies: cough, shortness of breath, SOB at rest Gastrointestinal/Abdominal: Reports: no symptoms Genitourinary: Reports: no symptoms Subjective 05/03/10- Patient admitted for revision of Kock poch. 05/04/19- s/p revision of Kick pouch 05/05- c/o abdominal pain with deep insp. 05/06 had increased abdominal pain, MS increased . 05/07- had a good day, ambulated 05/08- Had a bad nite due to hallucinations 05/09 pain improved 05/10- Ambulating, aguayo DC'd, tolerating clear liquids 05/11- c/o cough, loss of voice, denies F/.C 05/12 Cough resolved 05/14- c/o hoarsness of voice, planned for repeat surgery in AM. 05/15- Had resp Tx and CPT , breathing improved, awaiting surgery, NPO 05/16- sp re-op yesterday. CO abd pain, breathing better 05/17- on O2 NC, RA Sat 93%, no CP, c/o weakness 05/19- no pain, tolerating ice chips, Off O2, Sat OK, K 3.0 05/20- started on clear liquids, Voice improving, ambulated, off O2. 05/21- still c/o hoarseness, fluid intake increased, ambulating 05/22 Started solid food today, tolerating well, no N/V 05/23- Doing well, tolerated PO solids Objective Last 24 Hour Vital Signs Date Time Temp Pulse Resp B/P (MAP) Pulse Ox O2 Delivery O2 Flow Rate FiO2 05/23/19 13:10 82 20 99 Room Air 21 85 20 95 05/23/19 11:50 98.4 88 19 129/80 (96) 95 05/23/19 09:00 Room Air 05/23/19 08:24 88 127/77 05/23/19 08:01 88 20 99 Room Air 21 90 20 96 05/23/19 08:00 98.9 86 19 127/77 (94) 95 05/23/19 04:00 97.8 83 16 141/82 (101) 95 05/23/19 00:00 98.3 84 18 136/73 (94) 95 05/22/19 21:00 Room Air Room Air 05/22/19 20:06 76 18 98 Room Air 21 05/22/19 20:00 98.1 78 18 128/71 (90) 96 05/22/19 19:56 74 18 95 Room Air 21 05/22/19 16:00 97.8 82 16 128/74 (92) 96 General Appearance: no apparent distress, alert Neck: supple Cardiovascular: normal rate, regular rhythm, no gallop/murmur Respiratory/Chest: lungs clear Abdomen: normal bowel sounds, non tender Extremities: non-tender, normal inspection, no calf tenderness, no swelling Intake and Output 05/22/19 05/23/19 19:00 07:00 Intake Total 2949 ml 750 ml Output Total 2670 ml Balance 279 ml 750 ml Intake Oral 1074 ml IV Total 975 ml 750 ml Other 900 ml Output Urine Total 1800 ml Other 870 ml Laboratory Tests Test 05/23/19 05:00 White Blood Count 5.8 K/UL (4.8-10.8) Red Blood Count 3.43 M/UL (4.20-5.40) L Hemoglobin 10.8 G/DL (12.0-16.0) L Hematocrit 32.1 % (37.0-47.0) L Mean Corpuscular Volume 94 FL (80-99) Mean Corpuscular Hemoglobin 31.5 PG (27.0-31.0) H Mean Corpuscular Hemoglobin Concent 33.6 G/DL (32.0-36.0) Red Cell Distribution Width 11.1 % (11.6-14.8) L Platelet Count 349 K/UL (150-450) Mean Platelet Volume 5.4 FL (6.5-10.1) L Neutrophils (%) (Auto) 80.6 % (45.0-75.0) H Lymphocytes (%) (Auto) 5.9 % (20.0-45.0) L Monocytes (%) (Auto) 7.8 % (1.0-10.0) Eosinophils (%) (Auto) 4.6 % (0.0-3.0) H Basophils (%) (Auto) 1.1 % (0.0-2.0) Sodium Level 138 MMOL/L (136-145) Potassium Level 4.1 MMOL/L (3.5-5.1) Chloride Level 104 MMOL/L (98-107) Carbon Dioxide Level 29 MMOL/L (21-32) Anion Gap 5 mmol/L (5-15) Blood Urea Nitrogen 15 mg/dL (7-18) Creatinine 0.7 MG/DL (0.55-1.30) Estimat Glomerular Filtration Rate mL/min (>60) Glucose Level 117 MG/DL (74-106) H Calcium Level 9.0 MG/DL (8.5-10.1) Mau Gonzales MD May 23, 2019 13:31
[2019-05-23 16:00] VITALS: BP 130/86
[2019-05-23] MEDS ORDERED: NS Irrig 1000ml ONE ×2 (17:20→17:25)
[2019-05-23] MEDS ORDERED: Tubing IV Secondary IV ONE (17:25)
[2019-05-23] MEDS: Dyna-Hex 2% Top Sol 2oz TOPIC SCH (19:59)
[2019-05-23 20:00] VITALS: BP 135/76
[2019-05-23] MEDS: Montelukast 10mg tablet ORAL SCH (20:33)
[2019-05-23] MEDS: ALPRAZolam 0.5mg tab ORAL PRN (21:15)
[2019-05-24] VITALS: BP 120/67
[2019-05-24] MEDS: Albuterol ud Inhalation HHN SCH ×3 (00:53→07:00)
[2019-05-24 04:00] VITALS: BP 128/80
[2019-05-24 08:00] VITALS: BP 115/72
--- NOTE | 2019-05-24 08:37 | General Progress Note ---
Progress Note Progress Note Doing well with self-intubations of Kock Pouch. Abdomen soft, stoma tract stable, no incontinence Urine 2350 Kock pouch ileo 700 Imp. Stable for discharge Rx none Resume pre-admission home meds Instructions/limitations/supplies discussed/provided including 2 small and 2 large stoma stents F/U office 05/31 and Zachariah Jones MD May 24, 2019 08:37
[2019-05-24] MEDS: Sertraline 100mg tab ORAL SCH (08:43)
[2019-05-24] MEDS: guaiFENesin ER 600mg tab ORAL SCH (08:43)
[2019-05-24] MEDS: Nystatin Susp 500,000 units/5ml ORAL SCH (08:43)
[2019-05-24] MEDS: Tolterodine 2mg tab ORAL SCH (08:43)
[2019-05-24 08:45] VITALS: BP 115/72
[2019-05-24] MEDS: HCTZ ORAL SCH (08:45)
[2019-05-24] MEDS: IRBESARTAN ORAL SCH (08:45)
--- NOTE | 2019-05-25 10:57 | Discharge Summary ---
Discharge Summary Hospital Course Date of Admission May 03, 2019 at 08:55 Date of Discharge May 24, 2019 at 09:08 Admitting Diagnosis Malfunctioning Kock pouch continent ileostomy Reason for Hospitalization: elective surgery DYLAN Baer is a 79 year old female who was admitted on May 03, 2019 at 08:55 for Malfunctioning Kock Pouch continent ileostomy. 79-year-old female in overall stable health with a malfunctioning Kock pouch continent ileostomy with increasing incontinence and increasing difficulty with intubation. The patient has a past history of ulcerative colitis in 1979. At the [facility], she underwent proctocolectomy with creation of a Kock pouch continent ileostomy. Over the years, she usually intubates three times a day to evacuate stool. In recent months, she had been aware of incontinence of stool or gas, sometimes gross incontinence. She also had few years of increasing episodes of difficulty with intubating , associated with the incontinence over few years. In October 2018, she was completely unable to intubate. She underwent a pouch endoscopy with placement of the catheter, but there was no description in the report of any etiology of the inability to catheterize. She underwent a CT scan, which was unremarkable except for a foreign body in the pouch. The patient was scheduled to undergo pouch endoscopy and preparation for surgery, including laparotomy and revision of her malfunctioning Kock pouch, likely due to a slipped valve. She does not want to have her pouch removed and have a conventional ileostomy as she has never had a conventional ileostomy. Consultations Dr Yoel Gonzales -cardio/IM Procedures s/p 05/03/[address] Farris Konani pouch endoscopy s/p 05/04/[address] Farris Complex revision of Kock pouch continent ileostomy with creation of new nipple valve and relocation of stoma to the left lower quadrant. s/p 05/15/[address] Farris Laparotomy and debridement of Kock pouch stoma Hospital Course 05/03 patient admitted patient undergone dual-lumen PICC line placement to left arm CXR revealed COPD changes , no acute cardiopulmonary pathology abnormal ECG cardio eval requested due to abnormal ECG and management of HTN postoperatively Echocardiogram demonstrated preserved EF of 60 to 65% with no evidence of left ventricular hypertrophy. No evidence of pericardial effusion. No evidence of wall motion abnormality. cardio cleared patietn for surgery s/p 9/11 Kock pouch endoscopy with findings of a partially slipped nipple valve full discussion with patient and son regarding her condition, nature of surgery, options and risks. started on IV hydration bowel preparation continuous drainage of Kock pouch maintained 05/04/19 s/p surgery: Complex revision of Kock pouch continent ileostomy with creation of new nipple valve and relocation of stoma to the left lower quadrant. 05/05/19 c/o sinus congestion abdomen mildly distended moderate serosanguineous drainage from stoma, incisions clean NPO x meds , Blunt catheter pain management with QUALITY AUDIT REPRESENTATIVE Morphine, including basal continuous rate IVF incentive spirometry intake and output closely monitored started on Claritin mobilized as tolerated 05/06/19 pain especially LUQ; no difficulty breathing at this time; ambulated 05/05 abdomen mild with soft distention, no guarding, incisions clean, stoma pink with lateral dusky area basal infusion of QUALITY AUDIT REPRESENTATIVE increased NPO, Blunt continued Roper pouch to continuous drainage continejd intale anad output closely monitored labs monitored 05/07/19 much more comfortable overnight ; LUQ pain resolved; ambulated abdomen soft with mild distention, incisions clean stoma pink medial and dusky lateral Hgb down 10.8 Iron 96 B12 411 intake and output clsoely monitored continue NPO, Blunt, continuos Kock pouch drainage started on Venofer and B12 05/08/19 at times confused and disoriented. basal infusion of QUALITY AUDIT REPRESENTATIVE stopped - ? due to Ativan for sleep abdomen mildly distended, soft, incisions clean NPO, Blunt, continuous drainage of Kock Pouch continued Ativan discontinued; at home was using Xanax for anxiety attacks and prn insomnia ambulation with assistance encouraged 05/09/19 less confused, intermittent anxiety controlled with Xanax abdomen soft, mildly distended, incision clean, stoma 40% of circumference still dusky, no separation from skin edge ileus was slowly resolving K replaced NPO and Blunt (diuresing) continued continuous drainage of Kock Pouch maintained 05/10/19 stable, abdomen soft, healing nicely, stoma stable labs stable started on clear liquid diet Blunt discontinued QUALITY AUDIT REPRESENTATIVE and antibiotics discontinued IVF rate decreased 05/11/19 tolerated clear liquid had cough in AM. voided but some episodes of incontinence of urine overnight abdomen soft, incision clean, stoma intact laterally at dusky area slowly improving started on BCIR low residue diet continuous drainage of Kock pouch maintained intake and output closely monitored, labs followed CXR due to cough ->lung hyperexpanded/COPD, likely asthma exacerbation per cardio managed with bronchodilator via hand held nebulizing treatment Mucinex pulse oximetry stable on RA no evidence of respiratory distress 05/12/19 that am with laryngitis. cough better and CXR clear ( see above) abdomen soft, incisions clean, stoma stable tolerated BCIR diet K infusion continuous drainage of Kock pouch maintained 05/13/19 eating about 65% of BCIR diet laryngitis better and cough resolved abdomen soft, lee removed from both incisions and steri-strips applied stoma lateral half retraction of mucosa , but there is a well defined tract. continuous drainage of Kock Pouch maintained, plan to start intubations in AM Ensure Clear 2 daily added between meals 05/14/19 c/o left leg pain , starting just above her knee down to ankle, worse with walking Venous Duplex BLE negative for acute DVT. no GI complaints; eating about 65% of meals abdomen soft stoma with some necrosis and mucosal edge has retracted well down into the abdominal wall not safe to remove Kock Pouch ileo catheter and attempt self-intubations patient will need revision left leg well perfused, no swelling or edema or tenderness. patient with Kock pouch stoma necrosis and retraction plan surgical revision of Kock Pouch stoma, possible laparotomy in AM indwelling Kock Pouch catheter left in place until surgery. started on clear liquid diet, preop IV antibiotics SQ heparin pre-op full discussion with patient and son concerning the problem, nature of the surgery, indications, options and risks 05/15/19 s/p Laparotomy and debridement of Kock pouch stoma. empiric antibiotics for probable UTI 05/16/19 intermittent pain despite Morphine QUALITY AUDIT REPRESENTATIVE (no basal infusion) chest with decreased expansion abdomen mildly distended, soft, incision clean, stoma retracted with open tract and indwelling catheter sutured in place (28 Blunt) patient with ileus and malnutrition ( 2 surgeries in 2 weeks) TPN started continuous drainage of Kock pouch maintained added low-dose of Toradol for 48 hours I/O monitored, labs followed PT mobility protocol enforced urine culture + Proteus (30-40K) and E coli ESBL (20 -30 K), treated due to being symptomatic, completed treatment with Zosyn, symptoms resoled 05/17/19 abdomen with mild soft distention, incision clean, stoma tissues slowly healing low P and Mg urine cx sensitive to Zosyn, on abx - proteus sensitive to the Zosyn she is receiving continue TPN,NPO status, Kock pouch and urinary catheter to drainage Mg and P infusion to replace ambulation increased 05/18/19 no pain, not using QUALITY AUDIT REPRESENTATIVE ambulated with assistance abdomen with mild soft distention, incision clean, retracted stoma stable all labs satisfactory except albumin 2.2 ileus was slowly resolving continue NPO, TPN, continuous drainage of Kock Pouch QUALITY AUDIT REPRESENTATIVE discontinued 05/19/19 not requiring any pain medication still with hoarse voice abdomen soft, mild distention, healing nicely slowly resolving ileus continue NPO, TPN, Blunt KCL infusion provided - for replacement 05/20/19 ambulated well; hoarseness improved abdomen soft, non-distended, healing nicely peristomal tissues improved ileus was resolving Blunt catheter discontinued limited clear liquids (max 1000cc) TPN and continuous drainage of Kock Pouch continued received Mg infusion for replacement 05/21/19 tolerated limited clear liquids orally abdomen soft, healing nicely started on clear liquid diet ad tucker TPN continued, but IV fluids discontinued continuous drainage of Kock pouch continent ileostomy maintained 05/22/19 done well with clear liquids abdomen soft, incision clean Kock pouch catheter removed : stoma 3cm below skin, circumferentially well formed, with slowly granulating tract. 28 Blunt readily reinserted tried large and small stents ; will work well once skin opening narrows start on BCIR low residue diet continue TPN continuous drainage of Kock Pouch maintained plan to start RN supervised self-intubations in AM 05/23/19 eating BCIR diet 50% Abdomen soft lee removed and steri- strips applied Kock pouch stoma with retracted stoma ; able to insert drainage catheter by RNs readily patient showed improvement with stable retracted Kock pouch stoma RN supervised Kock pouch self-intubations initiated TPN tapered and dc additional Venofer 200mg IV tonight (total during hospital stay 900mg infused) discussed/demonstrated use of small and large stents again anticipate discharge in am 05/24/19 doing well with self-intubations of Kock Pouch. abdomen soft, stoma tract stable, no incontinence patient was stable for discharge Rx none patient to resume pre-admission home meds instructions/limitations/supplies discussed/provided including 2 small and 2 large stoma stents F/U office 05/31 and prn FINAL DIAGNOSES 1. Malfunctioning Kock pouch continent ileostomy. 2. History of ulcerative colitis. 3. Hypertension -controlled 4. Asthma / with exacerbation -resolved 5. STATUS POST MULTIPLE ABDOMINAL OPERATIONS: 5.1. Proctocolectomy and Kock pouch in 1979. 5.2. Oophorectomy for benign cyst in 2015. 6. Abnormal ECG with normal LV function 7. s/p 05/03 Kock pouch endoscopy- partially slipped nipple valve 8. s/p 05/04 Complex revision of Kock pouch continent ileostomy with creation of new nipple valve and relocation of stoma to the left lower quadrant 9. Ileus-resolved 10. Atelectasis with sinus congestion -resolved 11. Kock pouch stoma necrosis and retraction 12. s/p 05/15 Laparotomy and debridement of Kock pouch stoma 13. DJD 14. Hoarseness-improved 15. Anemia of iron deficiency 16. Anemia of B 12 17.Protein calorie malnutrition 18. Electrolyte imbalance ( Hypo K, hypo Mg, hypo P) 19. Confusion , possibly due to medication -transient-resoled 20. Insomnia 21. Urinary frequency, possible UTI with Proteus and E coli SBL Discharge Medications Continued Medications: Albuterol Sulfate (Ventolin Hfa) 18 Gm Hfa.aer.ad 1 PUFF INH EVERY 6 HOURS, #18 GM 0 Refills (This prescription has been renewed) Amlodipine Besylate* (Amlodipine Besylate*) 5 Mg Tablet 5 MG ORAL DAILY, TAB (This prescription has been renewed) Celecoxib* (Celebrex*) 200 Mg Capsule 200 MG ORAL DAILY, CAP (This prescription has been renewed) Fluticasone Propionate* (Fluticasone Propionate*) 16 Gm [place].susp 1 SPRAY NASAL DAILY, EA (This prescription has been renewed) Irbesartan/Hydrochlorothiazide 300-12.5 Mg T (Avalide 300-12.5 Mg Tablet) 1 Each Tablet 1 TAB ORAL DAILY, TAB (This prescription has been renewed) Iron (Iron) 18 Mg Tablet 325 MG PO DAILY, TAB (This prescription has been renewed) Loratadine/Pseudoephedrine (Claritin-D 24 Hour Tablet) 1 Each Tab.er.24h 1 TAB PO DAILY, TAB (This prescription has been renewed) Montelukast Sodium* (Montelukast Sodium*) 10 Mg Tablet 10 MG ORAL BEDTIME, TAB (This prescription has been renewed) Pravastatin Sod* (Pravastatin Sod*) 20 Mg Tablet 20 MG ORAL BEDTIME, TAB (This prescription has been renewed) Sertraline Hcl* (Sertraline Hcl*) 25 Mg Tablet 150 MG ORAL DAILY, TAB (This prescription has been renewed) Tiotropium [place]* (Spiriva*) 18 Mcg Cap.w.dev 1 PUFF INH DAILY, EA (This prescription has been renewed) Tolterodine Tartrate* (Detrol*) 2 Mg Tablet 2 MG ORAL DAILY, TAB (This prescription has been renewed) Discharge Condition Upon Discharge: stable Discharge Disposition Patient was discharged to Discharge Instructions Discharge Instructions Special Instructions I have been assigned to complete a D/C Summary on this account. I was not involved in the patient management Marybel Gray NP May 25, 2019 10:57
== END 2019-05-24 09:08 | disposition home or self-care (01) | DRG 330 ==
LOC: 3E 08:55
PROC: B518ZZA Fluoroscopy of Superior Vena Cava, Guidance (ICD-10-PCS; principal; 2019-05-03 13:09)
PROC: 02HV33Z Insertion of Infusion Device into Superior Vena Cava, Percutaneous Approach (ICD-10-PCS; principal; 2019-05-03 13:09)
PROC: 0DJD8ZZ Inspection of Lower Intestinal Tract, Via Natural or Artificial Opening Endoscopic (ICD-10-PCS; principal; 2019-05-03 13:09)
PROC: 0DSB0ZZ Reposition Ileum, Open Approach (ICD-10-PCS; 2019-05-04)
PROC: 0DQB0ZZ Repair Ileum, Open Approach (ICD-10-PCS; 2019-05-15)
PROC: 0HD7XZZ Extraction of Abdomen Skin, External Approach (ICD-10-PCS; 2019-05-15)
DX: K94.13 Enterostomy malfunction (principal); K51.90 Ulcerative colitis, unspecified, without complications; J44.1 Chronic obstructive pulmonary disease with (acute) exacerbation; N39.0 Urinary tract infection, site not specified; R44.3 Hallucinations, unspecified; E87.1 Hypo-osmolality and hyponatremia; K56.7 Ileus, unspecified; E46 Unspecified protein-calorie malnutrition; K91.71 Accidental puncture and laceration of a digestive system organ or structure during a digestive system procedure; I10 Essential (primary) hypertension; R94.31 Abnormal electrocardiogram [ECG] [EKG]; R35.0 Frequency of micturition; R49.0 Dysphonia; G47.00 Insomnia, unspecified; E87.6 Hypokalemia; E83.42 Hypomagnesemia; E83.39 Other disorders of phosphorus metabolism; D50.9 Iron deficiency anemia, unspecified; K66.0 Peritoneal adhesions (postprocedural) (postinfection)
CPT/HCPCS: 36415; 36569; 71045; 76937; 80048; 80053; 80076; 81001; 82607; 82728; 82746; 82747; 82962; 83540; 83550; 83735; 83930; 84100; 85007; 85025; 85610; 85730; 86850; 86900; 86901; 87086; 87181; 93005; 93306; 93970; 94003; 94150; 94640; 94664; J1815; J2250; J2405; J2710